=== PATIENT | female | born 1995 | race Caucasian/White ===

== ENCOUNTER → 2018-06-08 08:57 | Outpatient (CLI) | payer OTHER, SELFPAY | PROVIDERS: Family Provider Family Medicine; PCP Family Medicine; Visit Provider Family Medicine | DX: Z11.1 Encounter for screening for respiratory tuberculosis (principal) | CPT/HCPCS: 36415; 86480 ==

== ENCOUNTER → 2018-06-10 10:29 | Outpatient (CLI) | payer OTHER, SELFPAY ==
[2018-06-15 03:07] LABS: QNTFERON TB Ag Minus Nil Value 0.05 IU/mL (.); QNTFERON TB Ag Value 0.12 IU/mL (.); QNTFERON TB Mitogen Value > 10.00 IU/mL (.); QNTFERON TB Nil Value 0.07 IU/mL (.)
[2018-06-15 09:23] LABS: QNTIFERON TB Gold Negative (Negative)
== END ==
PROVIDERS: Family Provider Family Medicine; PCP Family Medicine; Visit Provider Family Medicine
DX: Z11.1 Encounter for screening for respiratory tuberculosis (principal)
CPT/HCPCS: 86480

== ENCOUNTER 2018-11-02 14:19 | Emergency (ER) | payer OTHER, SELFPAY ==
[2018-11-02 14:20] VITALS: BP 139/83; PULSE 89; RESP 16; TEMP 36.6; O2SAT 96; BMI 35.9
--- NOTE | 2018-11-02 14:43 | EKG12_ITS ---
Test Reason : NUMBNESS Blood Pressure : / mmHG Vent. Rate : 065 BPM Atrial Rate : 065 BPM P-R Int : 112 ms QRS Dur : 098 ms QT Int : 420 ms P-R-T Axes : 012 003 011 degrees QTc Int : 436 ms Normal sinus rhythm with sinus arrhythmia Normal ECG Confirmed by TISHA HINTON, BYRON ([id number]), production editor ALTAF BURNETTE ([id number]) on 11/06/2018 3:21:44 PM Referred By: RU Confirmed By:BYRON GILES MD
--- NOTE | 2018-11-02 14:43 | RAD_ITS ---
STUDY: X-RAY CHEST REASON FOR EXAM: Female, 23 years old. Numbness and tingling of the left face and left arm since migraines one week ago TECHNIQUE: PA and lateral views of the chest. COMPARISON: None. FINDINGS: The lungs are clear and expanded. There is no demonstrated pleural abnormality. Normal size heart. Normal mediastinum and rodrick. Normal visualized pulmonary arteries. Normal visualized aortic arch and descending thoracic aorta. Normal visualized thoracic spine. Normal visualized ribs, clavicles, and shoulders. There is no demonstrated abnormality of the visualized soft tissue structures of the upper abdomen. RAD/Chest PA and Lateral IMPRESSION: Normal x-ray examination of the chest. Electronically Signed: Shivam Corrigan MD at 15:46 EST , Service support ,
--- NOTE | 2018-11-02 14:45 | NURSING ---
NO OLD EKGS
--- NOTE | 2018-11-02 15:00 | CT_ITS ---
STUDY: CT BRAIN WITHOUT CONTRAST REASON FOR EXAM: Female, 23 years old. Headache RADIATION DOSAGE (If Supplied By Facility): CTDIvol = ( 44.99 ) mGy, DLP = ( 745.49 ) mGycm TECHNIQUE: Transaxial CT imaging of the brain was performed without administration of intravenous contrast material. Individualized dose optimization techniques were used for this CT. COMPARISON: None. FINDINGS: Normal soft tissue structures. Normal calvarium. Normal size ventricles and extra-axial spaces for the patient's age. Normal white matter tracts of the cerebral hemispheres. Normal basal ganglia and thalami. Normal brainstem. Normal cerebellum. There is no intracranial hemorrhage. There are no findings of an acute ischemic infarction. Normal visualized paranasal sinuses. CT/Brain/Head without Contrast IMPRESSION: Normal unenhanced CT scan of the brain. Electronically Signed: Shivam Corrigan MD at 15:56 EST , Service support ,
[2018-11-02 15:07] LABS: Absolute Lymphocyte Count 2.21 X10^3/ul (0.83-4.51); Absolute Neutrophil Count 3.7 X10^3/uL (2.0-7.7); Basophil# 0.02 X10^3/uL; Basophil% 0.3 % (0-1); Eosinophil# 0.09 X10^3/uL; Eosinophils% 1.4 % (0-5); Hematocrit 42.3 % (37-47); Hemoglobin 14.3 g/dl (12.0-15.0); Lymphocyte # 2.21 X10^3/ul (4.0); Lymphocyte % 33.5 % (19-41); Mean Corp Hgb Conc 33.8 g/gl (32-36); Mean Corpuscular Hgb 29.7 pg (27.0-32.0); Mean Corpuscular Volume 87.8 fL (81-99); Mean Platelet Vol. 9.6 fl (6.2-12.0); Monocyte# 0.62 X10^3/uL; Monocyte% 9.4 % (0-10); Neutrophil # 3.66 X10^3/uL (2.7-7.7); Neutrophil % 55.4 % (47-70); Platelet Count 226 K/mm3 (150-450); RBC Distribution Width CV 12.2 % (11.6-14.6); RBC Distribution Width SD 39.4 fl (35.1-43.9); Red Blood Count 4.82 M/mm3 (4.2-5.4); White Blood Count 6.6 K/mm3 (4.4-11.0)
[2018-11-02 15:10] LABS: POSITIVE COUNT NO; POSITIVE DIFFERENTIAL NO; POSITIVE MORPHOLOGY NO; Prothrombin Time (Protime)PT. 12.7 SECONDS (11.7-14.9)
[2018-11-02 15:11] LABS: Partial Thromboplast Time 26.2 Seconds (24.1-36.2)
[2018-11-02 15:19] LABS: Anion Gap 6 (5-15); BUN 12 mg/dL (7-18); BUN/Creat Ratio 13.6 RATIO (10-20); Calcium,Total 8.8 mg/dL (8.5-10.1); Chloride 108 mmol/L (98-107); Creatinine, Serum 0.88 mg/dL (0.55-1.02); EST Glomerular Filtration Rate 85 mL/min (>60); Est Glom Filt Rate - Afr Amer 103 mL/min (>60); Estimated Creatinine Clearance 86.59 ml/min; Glucose 73 mg/dL (74-106); Potassium 3.7 mmol/L (3.5-5.1); Sodium Level 141 mmol/L (136-145)
[2018-11-02] MEDS: DiphenhydrAMINE 50 MG/ML Syringe 25 MG IV (15:20)
[2018-11-02] MEDS: proCHLORPERazine 10 MG/2 ML Vial IV (15:22)
[2018-11-02] MEDS: 0.9% Normal Saline 1,000 ML 50 ML IV (15:24)
--- NOTE | 2018-11-02 16:04 | ED.VISSUMM ---
- ER Visit Summary Date of Service: 11/02/18 Chief Complaint: Numbness and tingling History of Present Illness: The patient is a 23 F with numbness and tingling in her left face and left arm that started about 1 hour prior to arrival while she was at a basketball game. Throughout the day today, she has had a weird sensation in her head. She describes it as a floating sensation. She has a history of migraines and had one last weekend. She is not really having headache or head pain today. She says her numbness has improved but she continues to have paresthesias at this point. She also noted some dots in her vision bilaterally. Those went away. Denies any head injuries. Denies any fever or recent illness. Denies any change in her medications. No other new or different symptoms. She was previously diagnosed with migraines and takes propranolol. No other significant medical history. Physical Examination: Afebrile and vital signs unremarkable. Alert and oriented. No acute distress. Head and neck are normal to inspection. HEENT exam unremarkable. Cranial nerves grossly intact. Heart regular. No respiratory distress. Skin appears normal. Moves all extremities. No focal or lateralizing neurologic abnormalities. Good coordination. NIH stroke scale is 0. Test Results: EKG and labs unremarkable. CT brain unremarkable. Emergency Department Course and Treatment: Patient treated with Compazine, Benadryl, and fluids. I suspect her symptoms are all migraine related. Her workup is unremarkable. This does not seem consistent with stroke, seizure, tumor, bleed, or any other emergent intracranial process. Patient is doing well. Symptoms have resolved. She will be discharged to follow-up with her family doctor. Stay hydrated and rested. Return for any new or worsening issues. Treatment Plan: As above Disposition: Discharge Impression: 1. Paresthesias This note was generated with [employer] dictation software. It may contain incorrect words, spelling, and punctuation that were not noted in review of the chart prior to signing ED Disposition - Plan for ED Patient: Chief Complaint: Numb/Ting Referrals: Doni Salinas MD [Primary Care Provider] -
--- NOTE | 2018-11-02 16:07 | ED.DEP ---
ED Disposition - Plan for ED Patient: Chief Complaint: Numb/Ting Instructions: ED Paraesthesias Referrals: Doni Salinas MD [Primary Care Provider] -
[2018-11-02 16:23] VITALS: BP 121/78; PULSE 78; RESP 16; O2SAT 97
--- OUTSIDE RECORDS SUMMARY | 2019-02-05 12:06 | XMS RPT_ITS ---
:1995 Author Organization [facility] Care Team Providers Name Role Phone Doni Burnette Primary Care Unavailable Tahir Mata Attending Unavailable Barrington Nieves Attending Unavailable Barrington Nieves Referring Unavailable Doni Burnette Primary Care Unavailable Barrington Nieves Attending Unavailable Doni Burnette Primary Care Unavailable Brarington Nieves Referring Unavailable PROBLEMS PROBLEMS No Problem Records FoundPROCEDURES PROCEDURES No Procedure Records FoundRESULTS RESULTS 12 LEAD ELECTROCARDIOGRAM Observed: 11/06/2018 Status: F Source: [place] 3:22 PM [facility] REPOSITORY [facility] Cardiovascular Services [address] [place] [address] 12 Lead EKG 11/02/18 1450 MR#: [id number] Acct: [id number] Name: CAIN SEYMOUR Rep #: [id number] : 1995 23 From: Ken Gutierrez MD Attending Dr: Status: DEP ER Ordering Dr: Provider,Jae P. Date: 11/02/18 Location: ED Sex: F C Admitted: Test Reason : NUMBNESS Blood Pressure : / mmHG Vent. Rate : 065 BPM Atrial Rate : 065 BPM P-R Int : 112 ms QRS Dur : 098 ms QT Int : 420 ms P-R-T Axes : 012 003 011 degrees QTc Int : 436 ms Normal sinus rhythm with sinus arrhythmia Normal ECG Confirmed by TISHA HINTON, KEN ([id number]), news video editor ALTAF BURNETTE ([id number]) on 11/06/2018 3:21:44 PM Referred By: RU Confirmed By:KEN GUTIERREZ MD 11/06/18 1521 Date Ken Gutierrez MD CC: Tahir Mata MD; ED PHYSICIAN PROVIDER; Doni Burnette MD Signed EMERGENCY DEPARTMENT Observed: 11/02/2018 Status: F Source: [place] SUMMARY 4:56 PM [facility] REPOSITORY [facility] Medical Records Department [address] [place] [address] Emergency Department Summary 11/02/18 1604 MR#: [id number] Acct: [id number] Name: CAIN SEYMOUR Rep #: [id number] : 1995 23 From: Tahir Mata MD PCP: Doni Burnette MD Status: PRE ER - ER Visit Summary Date of Service: 11/02/18 Chief Complaint: Numbness and tingling History of Present Illness: The patient is a 23 F with numbness and tingling in her left face and left arm that started about 1 hour prior to arrival while she was at a basketball game. Throughout the day today, she has had a weird sensation in her head. She describes it as a floating sensation. She has a history of migraines and had one last weekend. She is not really having headache or head pain today. She says her numbness has improved but she continues to have paresthesias at this point. She also noted some dots in her vision bilaterally. Those went away. Denies any head injuries. Denies any fever or recent illness. Denies any change in her medications. No other new or different symptoms. She was previously diagnosed with migraines and takes propranolol. No other significant medical history. Physical Examination: Afebrile and vital signs unremarkable. Alert and oriented. No acute distress. Head and neck are normal to inspection. HEENT exam unremarkable. Cranial nerves grossly intact. Heart regular. No respiratory distress. Skin appears normal. Moves all extremities. No focal or lateralizing neurologic abnormalities. Good coordination. NIH stroke scale is 0. Test Results: EKG and labs unremarkable. CT brain unremarkable. Emergency Department Course and Treatment: Patient treated with Compazine, Benadryl, and fluids. I suspect her symptoms are all migraine related. Her workup is unremarkable. This does not seem consistent with stroke, seizure, tumor, bleed, or any other emergent intracranial process. Patient is doing well. Symptoms have resolved. She will be discharged to follow-up with her family doctor. Stay hydrated and rested. Return for any new or worsening issues. Treatment Plan: As above Disposition: Discharge Impression: 1. Paresthesias This note was generated with [employer] dictation software. It may contain incorrect words, spelling, and punctuation that were not noted in review of the chart prior to signing ED Disposition - Plan for ED Patient: Chief Complaint: Numb/Ting Referrals: Doni Burnette MD [Primary Care Provider] - What to do if you have Problems For any increased pain, shortness of breath, bleeding, nausea or vomiting, chest pain, or any unexpected problems, contact your Primary Care Provider. Call [facility] ([phone]) or report to the closest Emergency Room. Call 911 if necessary. 11/02/18 1656 <Electronically signed by Tahir Mata MD> Date Tahir Mata MD Cosigner Signature (If Indicated): Date CC: Doni Burnette MD DISCHARGE INSTRUCTION Observed: 11/02/2018 Status: F Source: [place] 4:56 PM [facility] REPOSITORY [facility] Medical Records Department [address] [place] [address] Discharge Instruction 11/02/18 1607 MR#: [id number] Acct: [id number] Name: CAIN SEYMOUR Rep #: [id number] : 1995 23 From: Tahir Mata MD PCP: Doni Burnette MD Status: PRE ER ED Disposition - Plan for ED Patient: Chief Complaint: Numb/Ting Instructions: ED Paraesthesias Referrals: Doni Burnette MD [Primary Care Provider] - What to do if you have Problems For any increased pain, shortness of breath, bleeding, nausea or vomiting, chest pain, or any unexpected problems, contact your Primary Care Provider. Call [facility] ([phone]) or report to the closest Emergency Room. Call 911 if necessary. 11/02/18 6717 <Electronically signed by Tahir Mata MD> Date Tahir Mata MD Cosigner Signature (If Indicated): Date CC: Doni Burnette MD BRAIN/HEAD WITHOUT Observed: 11/02/2018 Status: F Source: [place] CONTRAST 3:00 PM [facility] REPOSITORY [facility] Imaging Services [address] [place] [address] Brain/Head without Contrast MR#: [id number] Acct: [id number] Name: CAIN SEYMOUR Rep #: [id number] : 1995 F 23 From: Shivam Corrigan MD PCP: Doni Burnette MD Status: PRE ER Study: Brain/Head without Contrast Date of Exam: 11/02/18 Exam# [id number] Ordering Dr: Tahir Mata MD STUDY: CT BRAIN WITHOUT CONTRAST REASON FOR EXAM: Female, 23 years old. Headache RADIATION DOSAGE (If Supplied By Facility): CTDIvol = ( 44.99 ) mGy, DLP = ( 745.49 ) mGycm TECHNIQUE: Transaxial CT imaging of the brain was performed without administration of intravenous contrast material. Individualized dose optimization techniques were used for this CT. COMPARISON: None. FINDINGS: Normal soft tissue structures. Normal calvarium. Normal size ventricles and extra-axial spaces for the patient's age. Normal white matter tracts of the cerebral hemispheres. Normal basal ganglia and thalami. Normal brainstem. Normal cerebellum. There is no intracranial hemorrhage. There are no findings of an acute ischemic infarction. Normal visualized paranasal sinuses. CT/Brain/Head without Contrast IMPRESSION: Normal unenhanced CT scan of the brain. Electronically Signed: Shivam Corrigan MD at 15:56 EST , Service support , CC: Tahir Mata MD; Doni Burnette MD Social Services Aide: Signed CBC W/DIFF, AUTOMATED Collected: 11/02/2018 Status: F Source: [place] 2:57 PM [facility] REPOSITORY TYPE CODE TESTS RESULT OUT OF RANGE REFERENCE UNITS LAB L100.1000 4.4-11.0 K/mm3 Normal WBC 6.6 LAB L100.1200 4.2-5.4 M/mm3 Normal RBC 4.82 LAB L100.1300 12.0-15.0 g/dl Normal HGB 14.3 LAB L100.1400 37-47 % Normal HCT 42.3 LAB L100.1500 81-99 fL Normal MCV 87.8 LAB L100.1600 27.0-32.0 pg Normal MCH 29.7 LAB L100.1700 32-36 g/gl Normal MCHC 33.8 LAB L100.1810 11.6-14.6 % Normal RDW CV 12.2 LAB L100.1820 35.1-43.9 fl Normal RDW SD 39.4 LAB L100.1900 150-450 K/mm3 Normal PLT 226 LAB L100.2000 6.2-12.0 fl Normal MPV 9.6 LAB L100.2100 47-70 % Normal NEUT% 55.4 LAB L100.2200 19-41 % Normal LY% 33.5 LAB L100.2300 0-10 % Normal MONO% 9.4 LAB L100.2400 0-5 % Normal EO% 1.4 LAB L100.2500 0-1 % Normal BASO% 0.3 LAB L100.2550 0.0-0.9 % Normal IM GRAN % 0.000 Result Comment: IG% - Immature Granulocytes (promyelocytes, myelocytes and metamyelocytes) > 1% indicates that a LEFT SHIFT is Present. LAB L100.2620 2.0-7.7 X10 3/uL Normal Absolute Neut 3.7 LAB L100.2720 0.83-4.51 X10 3/ul Normal Absolute Lymph 2.21 Performed By: #### L100.0100 #### [facility] [address] [place], [address] PROTHROMBIN TIME W/INR Collected: 11/02/2018 Status: F Source: [place] 2:57 PM [facility] REPOSITORY TYPE CODE TESTS RESULT OUT OF RANGE REFERENCE UNITS LAB L300.4150 11.7-14.9 SECONDS Normal PROTIME 12.7 LAB L300.4200 Normal INR 1.0 Performed By: #### L300.3900, L300.4310 #### [facility] [address] [place], [address] PARTIAL THROMBOPLAST Collected: 11/02/2018 Status: F Source: [place] TIME 2:57 PM [facility] REPOSITORY TYPE CODE TESTS RESULT OUT OF RANGE REFERENCE UNITS LAB L300.4310 24.1-36.2 Seconds Normal PTT 26.2 Performed By: #### L300.3900, L300.4310 #### [facility] [address] [place], [address] BASIC METABOLIC Collected: 11/02/2018 Status: F Source: [place] PROFILE (BMP) 2:57 PM [facility] REPOSITORY TYPE CODE TESTS RESULT OUT OF RANGE REFERENCE UNITS LAB L501.0100 74-106 mg/dL Low GLU 73 Result Comment: Please note revised GLUCOSE reference range effective 2017. LAB L501.1000 7-18 mg/dL Normal BUN 12 LAB L501.1100 0.55-1.02 mg/dL Normal CREAT,SERUM 0.88 Result Comment: The validity of the calculated GFR AND GFRAA in patients over 70 years has not been determined. Clinical correlation is essential. LAB L501.1110 >60 mL/min Normal EST GFR 85 Result Comment: Non- GFR Calc LAB L501.1115 >60 mL/min Normal EST GFR - AA 103 Result Comment: GFR Calc LAB L501.1255 ml/min Normal Estimated CRCL 86.59 LAB L501.1300 10-20 RATIO Normal BUN/CRE 13.6 LAB L501.2200 8.5-10 mg/dL Normal .1 CA 8.8 LAB L501.5300 136-14 mmol/L Normal 5 NA 141 LAB L501.5600 3.5-5. mmol/L Normal 1 K 3.7 LAB L501.5900 98-107 mmol/L High CL 108 LAB L501.6100 21.0-3 mmol/L Normal 2.0 CO2 27.0 LAB L501.6200 5-15 Normal GAP 6 Performed By: #### L500.2500 #### [facility] [address] [facility] [place], [address] CHEST PA AND LATERAL Observed: 11/02/2018 Status: F Source: [place] 2:44 PM [facility] REPOSITORY [facility] Imaging Services [address] [place] [address] Chest PA and Lateral MR#: [id number] Acct: [id number] Name: CAIN SEYMOUR Rep #: [id number] : 1995 F 23 From: Shivam Corrigan MD PCP: Doni Burnette MD Status: PRE ER Study: Chest PA and Lateral Date of Exam: 11/02/18 Exam# [id number] Ordering Dr: Tahir Mata MD STUDY: X-RAY CHEST REASON FOR EXAM: Female, 23 years old. Numbness and tingling of the left face and left arm since migraines one week ago TECHNIQUE: PA and lateral views of the chest. COMPARISON: None. FINDINGS: The lungs are clear and expanded. There is no demonstrated pleural abnormality. Normal size heart. Normal mediastinum and rodrick. Normal visualized pulmonary arteries. Normal visualized aortic arch and descending thoracic aorta. Normal visualized thoracic spine. Normal visualized ribs, clavicles, and shoulders. There is no demonstrated abnormality of the visualized soft tissue structures of the upper abdomen. RAD/Chest PA and Lateral IMPRESSION: Normal x-ray examination of the chest. Electronically Signed: Shivam Corrigan MD at 15:46 EST , Service support , CC: Tahir Mata MD; Doni Burnette MD Social Services Aide: Signed QUANTIFERON TB-GOLD Collected: 06/10/2018 Status: F Source: [place] 10:34 AM [facility] REPOSITORY TYPE CODE TESTS RESULT OUT OF RANGE REFERENCE UNITS LAB L3400.7025 Negative Normal QFT Negative TB GOLD Result Comment: The specimen received for QuantiFERON testing was incubated by the ordering institution. Specific procedures outlined in our Directory of Services and in the package insert for the QuantiFERON Gold (In Tube) test must be followed to enable for proper stimulation of cells for the production of interferon gamma. LAB L3400.7035 . Normal QFT TB Comment POS CRIT Result Comment: To be considered positive a specimen should have a TB Ag minus Nil value greater than or equal to 0.35 IU/mL and in addition the TB Ag minus Nil value must be greater than or equal to 25% of the Nil value. There may be insufficient information in these values to differentiate between some negative and some indeterminate test values. LAB L3400.7045 . IU/mL Normal QFT TB AB 0.12 VALUE LAB L3400.7055 . IU/mL Normal QFT NIL VALUE 0.07 LAB L3400.7065 . IU/mL > Normal QFT MITOGEN 10.00 SIMBA LAB L3400.7075 . IU/mL Normal QFT AG - NIL 0.05 LAB L3400.7085 . Normal QFT TB INTER Comment Result Comment: The QuantiFERON TB Gold (in Tube) assay is intended for use as an aid in the diagnosis of TB infection. Negative results suggest that there is no TB infection. In patients with high suspicion of exposure, a negative test should be repeated. A positive test indicates infection with Mycobacterium tuberculosis. Among individuals without tuberculosis infection, a positive test may be due to exposure to M. kansasii, M. szulgai or M. marinum. On the Internet, go to cdc.gov/tb for further details. Performed at: [address] [id number] Physiological Chemist: Jorge Luis Brink PhD, Phone: [phone] Performed By: #### L3400.7000 #### [facility] (refer to report for specific site) refer to report for address and phone number QUANTIFERON TB-GOLD Collected: 06/08/2018 Status: F Source: [place] 9:03 AM [facility] REPOSITORY TYPE CODE TESTS RESULT OUT OF RANGE REFERENCE UNITS LAB L3400.7025 Normal QFT TB GOLD Result Comment: TEST RESULT LIMITS QuantiFERON Client Incubated QuantiFERON TB Gold Negative Negative The specimen received for QuantiFERON testing was incubated by the ordering institution. Specific procedures outlined in our Directory of Services and in the package insert for the QuantiFERON Gold (In Tube) test must be followed to enable for proper stimulation of cells for the production of interferon gamma. QuantiFERON Criteria To be considered positive a specimen should have a TB Ag minus Nil value greater than or equal to 0.35 IU/mL and in addition the TB Ag minus Nil value must be greater than or equal to 25% of the Nil value. There may be insufficient information in these values to differentiate between some negative and some indeterminate test values. QuantiFERON TB Ag Value 0.12 IU/mL QuantiFERON Nil Value 0.07 IU/mL QuantiFERON Mitogen Value >10.00 IU/mL QFT TB Ag minus Nil Value 0.05 IU/mL Interpretation: The QuantiFERON TB Gold (in Tube) assay is intended for use as an aid in the diagnosis of TB infection. Negative results suggest that there is no TB infection. In patients with high suspicion of exposure, a negative test should be repeated. A positive test indicates infection with Mycobacterium tuberculosis. Among individuals without tuberculosis infection, a positive test may be due to exposure to M. kansasii, M. szulgai or M. marinum. On the Internet, go to cdc.gov/tb for further details. TESTING PERFORMED AT [facility]. ORIGINAL REPORT ON FILE IN LAB CONTAINS ADDITIONAL TEST SITE INFORMATION. Performed By: #### L3400.7000 #### [facility] (refer to report for specific site) refer to report for address and phone number ALLERGIES ALLERGIES DATE TYPE / CODE NAME / CODE REACTION SEVERITY SOURCE 11/02/2018 Drug No Known Unknown [place] [facility] Allergy/4160 Allergies/F00 Hospital [address](SNOMED 6041987(RXNOR Repository CT) M) ENCOUNTERS ENCOUNTERS ADMIT/DISCHARGE ACCOUNT ADMITTING ENCOUNTER LOCATION SOURCE NUMBER CLASS 11/02/2018/ [id number] Emergency [place] [facility] ing:ED Repository 06/10/2018 [id number] Ambulatory [place] [facility] ing:LAB.FUTUR Repository E 06/08/2018 [id number] Ambulatory [place] [facility] ing:LAB Repository PAYERS PAYERS ENCOUNTER GUARANTOR PAYER SUBSCRIBER SOURCE 11/02/2018 CAIN Salgado Primary ANYA Vyas [place] [id number] APPLE Insurance:CIGNAPolicy SERDOB: [facility]ly [facility] DRAPPLE [place]: [id number] [id number] Repository [address]Jff: (330) Date:[phone] () [place], [place] [address]TQ: 11/02/2018 Secondary NOT GIVENUNK [place] Insurance:SELF PAY [facility] Number: Effective Repository Date:2018-11-02 06/10/2018 CAIN Salgado Primary Anay Asael [place] [id number] APPLE Insurance:CIGNAPolicy serB: [facility] DRAPPLE Number: [id number], [place] [id number] Repository [address]Pzh: (330) Date:[phone] () [id number], [place] [address]WS: 06/10/2018 Secondary NOT GIVENUNK [place] Insurance:SELF PAY [facility] Number: Effective Repository Date:2018-06-10 06/08/2018 CAIN SAVAGE [facility] Anay Ontiveros [id number] APPLE Insurance:CIGNAStevie HutsonserDOB: Formerly [facility] DRAPPLE Number: [id number], [place] [id number] Repository [address]Iji: (330) Date:[id number] [phone] () [id number], [place] [address]BC: 06/08/2018 Secondary NOT GIVENUNK [place] Insurance:SELF PAY [facility] Number: Effective Repository Date:2018-06-08
== END 2018-11-02 16:23 | disposition home or self-care (01) ==
LOC: ED 17:24
PROVIDERS: Emergency Provider Emergency Medicine; Family Provider Family Medicine; PCP Family Medicine
DX: R20.2 Paresthesia of skin (principal); G43.909 Migraine, unspecified, not intractable, without status migrainosus
CPT/HCPCS: 70450; 71046; 80048; 85025; 85610; 85730; 93005; 96361; 96374; 96375; 99284; J7030; J7040; A4216

== ENCOUNTER → 2019-05-02 15:48 | Outpatient (CLI) | payer OTHER, SELFPAY ==
[2019-05-02 18:07] LABS: T4 Total, Thyroxin 10.7 ug/dL (4.8-13.9); Thyroid Stim Hormone (TSH) 1.36 uIU/mL (0.358-3.74)
== END ==
PROVIDERS: Family Provider Family Medicine; PCP Family Medicine; Referring Provider Family Medicine; Visit Provider Family Medicine
DX: E66.9 Obesity, unspecified (principal)
CPT/HCPCS: 36415; 84436; 84443

== ENCOUNTER → 2019-07-01 13:32 | Outpatient (CLI) | payer OTHER, SELFPAY ==
[2019-07-03 20:07] LABS: QNTFERON TB Mitogen Value > 10.00 IU/mL (.); QNTFERON TB Nil Value 0.02 IU/mL (.); QNTFERON TB1+ Ag Value 0.03 IU/mL (.); QNTFERON TB2+ Ag Value 0.03 IU/mL (.)
[2019-07-04 12:28] LABS: QNTIFERON TB Positive Criteria Negative (Negative)
== END ==
PROVIDERS: Family Provider Family Medicine; PCP Family Medicine; Referring Provider Family Medicine; Visit Provider Family Medicine
DX: Z11.1 Encounter for screening for respiratory tuberculosis (principal)
CPT/HCPCS: 36415; 86480

== ENCOUNTER → 2020-06-29 13:24 | Outpatient (CLI) | payer OTHER, SELFPAY ==
[2020-07-02 03:06] LABS: QNTFERON TB Mitogen Value > 10.00 IU/mL (.); QNTFERON TB Nil Value 0.01 IU/mL (.); QNTFERON TB1+ Ag Value 0.02 IU/mL (.); QNTFERON TB2+ Ag Value 0.02 IU/mL (.)
[2020-07-02 04:42] LABS: QNTIFERON TB Positive Criteria Negative (Negative)
== END ==
PROVIDERS: PCP Family Medicine; Referring Provider Family Medicine; Visit Provider Family Medicine
DX: Z11.1 Encounter for screening for respiratory tuberculosis (principal)
CPT/HCPCS: 36415; 86480

== ENCOUNTER → 2020-11-15 16:43 | Outpatient (CLI) | payer OTHER, SELFPAY ==
[2020-11-15 13:14] VITALS: BMI 36.0
[2020-11-18 03:06] LABS: Chlamydia By Nucleic Acid AMP Negative (Negative)
[2020-11-18 12:32] LABS: Gonococcus By Nucleic Acid AMP Negative (Negative)
== END ==
PROVIDERS: PCP Family Medicine; Visit Provider Obstetrics & Gynecology
DX: Z11.3 Encounter for screening for infections with a predominantly sexual mode of transmission (principal)
CPT/HCPCS: 87491; 87591

== ENCOUNTER → 2021-03-28 09:43 | Outpatient (CLI) | payer OTHER, SELFPAY ==
[2020-11-17 08:15] VITALS: BMI 36.0
== END ==
PROVIDERS: PCP Family Medicine; Referring Provider Family Medicine; Visit Provider Family Medicine
DX: Z92.89 Personal history of other medical treatment (principal)
CPT/HCPCS: 36415; 86480

== ENCOUNTER → 2024-01-22 | Outpatient (CLI) | payer BC, SELFPAY ==
[2024-01-22 17:22] LABS: Vitamin D,25 Hydroxy 21.7 ng/mL
[2024-01-22 17:30] LABS: T4 Free Direct 0.85 ng/dL (0.76-1.46); Thyroid Stim Hormone (TSH) 1.61 uIU/mL (0.358-3.74)
[2024-01-24 04:07] LABS: Thyroid Peroxidase AB 18 IU/mL (0-34)
[2024-01-25 08:12] LABS: Chlamydia By Nucleic Acid AMP Negative (Negative); Gonococcus By Nucleic Acid AMP Negative (Negative)
[2024-01-30 12:42] LABS: HPV Reflexed? NOT INDICATED
== END | disposition home or self-care (01) ==
PROVIDERS: PCP Internal Medicine; Referring Provider Nurse Practitioner Women's Health; Visit Provider Nurse Practitioner Women's Health
DX: Z12.4 Encounter for screening for malignant neoplasm of cervix (principal); Z11.3 Encounter for screening for infections with a predominantly sexual mode of transmission
CPT/HCPCS: 36415; 82306; 84439; 84443; 86376; 87491; 87591; 88175; G0145

== ENCOUNTER → 2024-02-05 | Outpatient (CLI) | payer BC, SELFPAY ==
[2024-02-05 08:14] LABS: Absolute Lymphocyte Count 1.91 X10^3/uL (0.83-4.51); Absolute Neutrophil Count 3.2 X10^3/uL (2.0-7.7); Basophil# 0.03 X10^3/uL; Basophil% 0.5 % (0-1); Eosinophil# 0.05 X10^3/uL; Eosinophils% 0.9 % (0-5); Hematocrit 43.8 % (37-47); Hemoglobin 15.1 g/dL (12.0-15.0); Lymphocyte # 1.91 X10^3/ul (0.83-4.51); Mean Corp Hgb Conc 34.5 g/dL (32-36); Mean Corpuscular Hgb 30.9 pg (27.0-32.0); Mean Corpuscular Volume 89.6 fL (81-99); Mean Platelet Vol. 9.8 fl (6.2-12.0); Monocyte# 0.43 X10^3/uL; Monocyte% 7.7 % (0-10); NRBC Flagged by Analyzer 0 % (0-5); Neutrophil # 3.19 X10^3/uL (2.7-7.7); Neutrophil % 56.7 % (47-70); Platelet Count 206 K/mm3 (150-450); RBC Distribution Width CV 11.9 % (11.6-14.6); RBC Distribution Width SD 38.7 fl (35.1-43.9); Red Blood Count 4.89 M/mm3 (4.2-5.4); White Blood Count 5.6 K/mm3 (4.4-11.0)
[2024-02-05 08:32] LABS: ALB/GLOB Ratio 1.1 RATIO (0.9-2.4); AST(SGOT) 15 U/L (15-37); Alanine Aminotransfer ALT/SGPT 15 U/L (13-56); Albumin, Serum 3.7 g/dL (3.2-5.0); Alkaline Phosphatase 73 U/L (45-117); Anion Gap 4 (5-15); BUN 11 mg/dL (7-18); Calcium,Total 8.9 mg/dL (8.5-10.1); Chloride 110 mmol/L (98-107); Cholesterol 161 mg/dL (200); Creatinine, Serum 0.79 mg/dL (0.55-1.02); EST Glomerular Filtration Rate 93 mL/min (>60); Est Glom Filt Rate - Afr Amer 112 mL/min (>60); Globulin 3.3 g/dL (2.2-4.2); Glucose 92 mg/dL (74-106); High Density Lipoprotein 59 mg/dL; Potassium 3.8 mmol/L (3.5-5.1); Sodium Level 140 mmol/L (136-145); Triglycerides 89 mg/dL; Very Low Density Lipoprotein 18 mg/dL (5-40)
== END | disposition home or self-care (01) ==
LOC: LAB 07:46
PROVIDERS: PCP Internal Medicine; Referring Provider Internal Medicine; Visit Provider Internal Medicine
DX: E66.9 Obesity, unspecified (principal); F41.8 Other specified anxiety disorders
CPT/HCPCS: 36415; 80053; 80061; 85025

== ENCOUNTER → 2024-03-03 | Outpatient (CLI) | payer BC, SELFPAY ==
--- NOTE | 2024-03-03 15:35 | CER_PTH ---
PATIENT: CAIN SEYMOUR [facility] U#:[id number] AGE/SX: 28/F ROOM: RE03/03/[address]: Dr. Keren Alcaraz DO : 1995 BED: DIS: 03/03/2024 SPEC #: [id number] RECD: 03/03/24 15:38 STATUS: RUDDY GABE #: [id number] HECTOR: 03/03/24 15:[address]: Keren Alcaraz DEPT: SURGICAL PATHOLOGY RECD BY: Clara Arriola ENTERED: 03/04/24 09:35 SP TYPE: CERV OTHR DR: Dr. Meli Mims MD Tissues: A - Uterine cervix, NOS B - Endocervical Procedures: Surgery Specimen Level IV HEADER OPERATION: Colposcopy PRE-OP DIAGNOSIS: LGSIL TISSUE SUBMITTED: A- 12 o'clock on cervix, B- Endocervical Curettings MICROSCOPIC DIAGNOSIS A. Cervix, 12 o'clock, biopsy: Negative for dysplasia. See comment. B. Endocervical Curettings: A few desquamated benign endocervical epithelial cells, negative for dysplasia. See comment. / 03/05/2024 COMMENT A. Specimen entirely consists of ectocervical mucosa. Clinical correlation and appropriate follow up are necessary. MICROSCOPIC DESCRIPTION Slides are reviewed. GROSS DESCRIPTION A. Received in fixative is one container labeled with the patient's name and designated 12 o'clock cervix. The specimen consists of one irregular fragment of light lucas soft tissue that measures 0.4 x 0.3 x 0.1 cm. The specimen is totally submitted in one cassette. B. Received in fixative is a metallic brush with adherent minute fragments of lucas-red tissue and labeled with the patient's name and and designated per the requisition as ECC BRUSH. The material is attached lucas mucoid tissue. The specimen is dislodged from the brush and submitted entirely for cell block preparation. / 03/04/24 TC:5 CPT: 60092w1
== END | disposition home or self-care (01) ==
PROVIDERS: PCP Internal Medicine; Referring Provider Obstetrics & Gynecology; Visit Provider Obstetrics & Gynecology
DX: R87.612 Low grade squamous intraepithelial lesion on cytologic smear of cervix (LGSIL) (principal)
CPT/HCPCS: 88305

== ENCOUNTER → 2024-04-22 | Outpatient (CLI) | payer BC, SELFPAY ==
[2024-04-22 10:06] LABS: Vitamin D,25 Hydroxy 33.8 ng/mL
== END | disposition home or self-care (01) ==
LOC: PAVLAB 09:14
PROVIDERS: PCP Internal Medicine; Referring Provider Nurse Practitioner Women's Health; Visit Provider Nurse Practitioner Women's Health
DX: Z13.21 Encounter for screening for nutritional disorder (principal)
CPT/HCPCS: 36415; 82306

== ENCOUNTER → 2024-05-07 | Outpatient (CLI) | payer BC, SELFPAY ==
[2024-05-07 15:42] LABS: Absolute Lymphocyte Count 1.43 X10^3/uL (0.83-4.51); Absolute Neutrophil Count 3.2 X10^3/uL (2.0-7.7); Basophil# 0.03 X10^3/uL; Basophil% 0.6 % (0-1); Eosinophil# 0.03 X10^3/uL; Eosinophils% 0.6 % (0-5); Hematocrit 44.6 % (37-47); Hemoglobin 15.4 g/dL (12.0-15.0); Lymphocyte # 1.43 X10^3/ul (0.83-4.51); Lymphocyte % 28.4 % (19-41); Mean Corp Hgb Conc 34.5 g/dL (32-36); Mean Corpuscular Volume 89.7 fL (81-99); Mean Platelet Vol. 10.2 fl (6.2-12.0); Monocyte# 0.36 X10^3/uL; Monocyte% 7.1 % (0-10); NRBC Flagged by Analyzer 0 % (0-5); Neutrophil # 3.18 X10^3/uL (2.7-7.7); Neutrophil % 63.1 % (47-70); Platelet Count 203 K/mm3 (150-450); RBC Distribution Width CV 11.8 % (11.6-14.6); RBC Distribution Width SD 38.4 fl (35.1-43.9); Red Blood Count 4.97 M/mm3 (4.2-5.4)
[2024-05-07 16:08] LABS: Internal QC Validated? YES +Cl - CLEAR BKGD; Pregnancy, Serum, hCG Quali. NEGATIVE Negative
[2024-05-07 16:40] LABS: ALB/GLOB Ratio 1.2 RATIO (0.9-2.4); AST(SGOT) 24 U/L (15-37); Alanine Aminotransfer ALT/SGPT 22 U/L (13-56); Albumin, Serum 4.1 g/dL (3.2-5.0); Alkaline Phosphatase 73 U/L (45-117); Anion Gap 4 (5-15); BUN 8 mg/dL (7-18); BUN/Creat Ratio 8.6 RATIO (10-20); Calcium,Total 9.4 mg/dL (8.5-10.1); Chloride 105 mmol/L (98-107); Creatinine, Serum 0.93 mg/dL (0.55-1.02); EST Glomerular Filtration Rate 77 mL/min (>60); Est Glom Filt Rate - Afr Amer 93 mL/min (>60); Globulin 3.5 g/dL (2.2-4.2); Glucose 102 mg/dL (74-106); Potassium 3.7 mmol/L (3.5-5.1); Protein, Total 7.6 g/dL (6.4-8.2); Sodium Level 137 mmol/L (136-145)
== END | disposition home or self-care (01) ==
LOC: BIMLAB 12:02
PROVIDERS: PCP Internal Medicine; Visit Provider Internal Medicine
DX: R10.9 Unspecified abdominal pain (principal)
CPT/HCPCS: 36415; 80053; 84703; 85025

== ENCOUNTER → 2024-05-16 | Outpatient (CLI) | payer BC, SELFPAY ==
--- NOTE | 2024-05-16 17:43 | US_ITS ---
STUDY: ULTRASOUND OF THE FEMALE PELVIS - COMPLETE REASON FOR EXAM: Female, 29 years old. RLQ abdominal pain, spotting LMP: 04/19/2024 TECHNIQUE: Transabdominal and Transvaginal TECHNICAL QUALITY: Adequate. COMPARISON: None. FINDINGS: The uterus is anteverted and is in a midline position. The uterus measures 8 x 3.8 x 4 cm. Normal uterine cervix. The endometrium measures 5.9 mm in thickness, and is hyperechoic. There is no demonstrated endometrial mass. There is no demonstrated myometrial mass. I.U.D. - The patient does not have an I.U.D. The right ovary is visualized. The right ovary measures 3.1 x 1.9 x 1.4 cm. There is no right ovarian cyst or ovarian mass. There is no visualized right adnexal mass or complex lesion. There is normal arterial and normal venous vascularity. The left ovary is visualized. The left ovary measures 4.6 x 3.2 x 2.8 cm. There is a complex 3.5 x 1.8 x 1.9 cm cyst. There is normal arterial and normal venous vascularity. There is minimal fluid in the cul-de-sac. The bladder is sonographically normal with estimated capacity of 466 mL US/Pelvic w/ Transvaginal IMPRESSION: No suspicious sonographic findings, complex 3.5 cm left adnexal cyst. ACR White Paper guidelines (Nathan, et. al. Radiology 2010; 256(3):943-954) suggest no follow-up is necessary.. Electronically Signed: Len Souza MD at 22:12 EDT ,
== END | disposition home or self-care (01) ==
PROVIDERS: PCP Internal Medicine; Referring Provider Internal Medicine; Visit Provider Internal Medicine
DX: R10.31 Right lower quadrant pain (principal); N93.9 Abnormal uterine and vaginal bleeding, unspecified
CPT/HCPCS: 76830; 76856

== ENCOUNTER → 2024-05-20 | Outpatient (CLI) | payer BC, SELFPAY ==
--- NOTE | 2024-05-20 06:55 | CT_ITS ---
EXAM: CT ABDOMEN AND PELVIS WITH INTRAVENOUS CONTRAST CLINICAL INDICATION: RLQ abdominal pain TECHNIQUE: Helically acquired images were obtained of the abdomen and pelvis with intravenous contrast. This CT exam was performed using one or more of the following dose reduction techniques: automated exposure control, adjustment of the mA and/or kV according to patient size, and/or use of iterative reconstruction technique. CONTRAST: Oral and amp; IV Readi-CAT and amp; 100mL Isovue-370 COMPARISON: CT Abdomen Pelvis dated 05/08/2012 FINDINGS: LOWER THORAX: Normal. Lung bases are clear. No cardiomegaly. No pericardial effusion. ABDOMEN: LIVER: Normal. Homogeneous. No focal mass. GALLBLADDER AND BILE DUCTS: Interval cholecystectomy. PANCREAS: Normal. No focal cystic or solid mass. SPLEEN: Normal. Normal size without focal cystic or solid mass. ADRENALS: Normal. No nodules. KIDNEYS AND URETERS: Normal. Normal renal size and position. No hydronephrosis. STOMACH AND BOWEL: Normal. No bowel distention. No focal inflammatory change. PELVIS: APPENDIX: Appendix is visualized and normal in appearance. BLADDER: Normal. REPRODUCTIVE: Unremarkable as visualized. No mass. ABDOMEN and PELVIS: INTRAPERITONEAL SPACE: Physiological amount of free fluid noted within the pelvis. No free air. BONES/JOINTS: No suspicious lytic or blastic abnormality. SOFT TISSUES: Normal. No discrete abdominal or pelvic wall hernia. VASCULATURE: Normal. Abdominal aorta is non-dilated. LYMPH NODES: Normal. No enlarged lymph nodes. CT/Abdomen/Pelvis WITH Contrast IMPRESSION: 1. Normal appendix. 2. Interval cholecystectomy. 3. Physiological amount of free fluid within the pelvis likely related to recently ruptured ovarian cyst. Electronically Signed: Alfredo Menendez MD at 10:51 EDT ,
== END | disposition home or self-care (01) ==
PROVIDERS: PCP Internal Medicine; Referring Provider Internal Medicine; Visit Provider Internal Medicine
DX: R10.31 Right lower quadrant pain (principal)
CPT/HCPCS: 74177; Q9967

== ENCOUNTER → 2024-06-09 | Outpatient (CLI) | payer BC, SELFPAY ==
--- NOTE | 2024-06-09 17:54 | US_ITS ---
EXAM: US PELVIS TRANSABDOMINAL AND TRANSVAGINAL, COMPLETE CLINICAL INDICATION: pelvic pain/ovarian cyst TECHNIQUE: Transabdominal and transvaginal pelvic ultrasound was performed with grayscale and color Doppler imaging. Transvaginal imaging was used for better evaluation of the endometrium and adnexa. COMPARISON: Pelvic ultrasound, 05/08/[address] abdomen and pelvis, 05/20/2024. FINDINGS: UTERUS/CERVIX: No significant abnormality. Anteverted. There is no uterine mass. The uterus measures 7.7 x 3.7 x 3.9 cm. The endometrial stripe measures 0.4 cm in thickness. RIGHT OVARY: No significant abnormality. Blood flow is present in the right ovary. The right ovary measures 1.8 x 1.4 x 1.4 cm. LEFT OVARY: There is a 2.8 x 2.2 x 1.5 cm complex mass/cyst in the left ovary which appears similar to the prior sonographic evaluation. Blood flow is present in the left ovary. The left ovary measures 2.8 x 2.5 x 1.8 cm. FREE FLUID: Minimal free fluid in the cul-de-sac. BLADDER: Normal as visualized. Wall is normal thickness for degree of distention. US/Pelvic w/ Transvaginal IMPRESSION: There is a 2.8 x 2.2 x 1.5 cm complex mass/cyst in the left ovary which appears similar to the prior sonographic evaluation. Given persistence, recommend MRI and/or surgical consultation. Electronically Signed: Mayo Cruz DO at 0:05 EDT ,
== END | disposition home or self-care (01) ==
PROVIDERS: PCP Internal Medicine; Referring Provider Nurse Practitioner Women's Health; Visit Provider Nurse Practitioner Women's Health
DX: R10.2 Pelvic and perineal pain (principal); N83.209 Unspecified ovarian cyst, unspecified side
CPT/HCPCS: 76830; 76856

== ENCOUNTER → 2024-10-08 | Outpatient (CLI) | payer BC, SELFPAY | END | disposition home or self-care (01) | LOC: LABSPEC 15:09 | PROVIDERS: PCP Internal Medicine; Referring Provider Otolaryngology Otolaryngology/Facial Plastic Surgery; Visit Provider Otolaryngology Otolaryngology/Facial Plastic Surgery | DX: J02.9 Acute pharyngitis, unspecified (principal) | CPT/HCPCS: 87070 ==

== ENCOUNTER 2025-01-14 18:13 | Emergency (ER) | payer BC, SELFPAY ==
[2025-01-14 18:15] VITALS: BP 134/83; PULSE 65; RESP 18; TEMP 36.8; O2SAT 98; BMI 33.7
[2025-01-14 21:20] VITALS: BMI 33.7
--- NOTE | 2025-01-14 21:49 | EKG12_ITS ---
Test Reason : DYSRHYTHMIA Blood Pressure : */* mmHG Vent. Rate : 60 BPM Atrial Rate : 60 BPM P-R Int : 130 ms QRS Dur : 96 ms QT Int : 422 ms P-R-T Axes : 12 6 17 degrees QTcB Int : 422 ms Normal sinus rhythm Normal ECG Confirmed by Matty Burgess ([id number]), pictures editor SILVA TONG ([id number]) on 01/15/2025 9:33:58 AM Referred By: Confirmed By: Matty Burgess
--- NOTE | 2025-01-14 21:51 | ED.VIS.STROK ---
HPI History of Present Illness Chief Complaint: Neuro S/Sx Informant: patient Onset/Context/Timing Onset: Yesterday and Hours (2 hours. Beginning around 1 PM yesterday. Resolved.) Context: Gradual Onset Timing: Continuous Onset: 1 PM yesterday. Current Severity: Gone Maximum Severity: Moderate Associated Symptoms Associated Symptoms: Positive for Headache; Negative for Nausea, Vomiting or Chest Pain Narrative Narrative: Healthy 29-year-old female no seen past medical history. Said yesterday at work she had tingling in her right hand and then had trouble speaking and trouble writing. 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 She was trying to write a patient's name and could not write it appropriately. Said this lasted approximately 2 hours. She had a headache afterwards and now it is all completely resolved. Never had anything like this before. No history of stroke or mini stroke. No history of clotting disorder nor family history. Denies any recent head trauma. Denies any recent illness. Today is completely symptom-free. Prior similar symptoms: No Recent Illness/Hospitalization: No PFSH PFSH Medical History Depression with anxiety Home Medications ?Medication ?Instructions ?Recorded ?Last Taken ?Type tirzepatide (weight loss) 5 mg/0.5 5 mg (0.5 mL) subcut QWEEK 4 weeks 04/07/24 Unknown Rx mL subcutaneous pen injector #2 mL norethindrone (contraceptive) 0.35 0.35 mg PO QDAY #84 tabs 04/22/24 Unknown Rx mg tablet (Cassie) hydroxyzine HCl 25 mg tablet 25 mg PO TID PRN anxiety #90 tabs 08/07/24 Unknown Rx escitalopram oxalate 10 mg tablet 10 mg PO DAILY #90 TABLETS 11/28/24 Unknown Rx Allergy/AdvReac Type Severity Reaction Status Date / Time No Known Allergies Allergy Verified 01/14/25 18:15 Family History Mother Age: 66 Endometriosis Fatty liver disease, nonalcoholic Sister Age: 41 Endometriosis Bipolar disorder Grandfather Prostate cancer Heart disease Grandmother Heart disease Surgical History History of cholecystectomy (01/03/23) S/P cholecystectomy History of foot surgery S/P ACL surgery History of tonsillectomy Social History adopted: No household members: family current occupational status: employed current occupation: [employer] - diesel technology instructor pets and animals: Yes pets and animals: dog(s) Smoking Status: Never smoker Electronic Cigarette Use: not used alcohol intake: current alcohol intake frequency: a few times a week substance use type: does not use caffeine: Yes (2) Type: coffee what type of physical activity do you participate in: walking, running, bicycling and weight training frequency: 3-4 times per week seatbelt use: always do you feel safe at home: Yes additional social history: Single-Grad School [employer] 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 Had a headache yesterday now resolved. Constitutional Constitutional ED: Denies chills or fever(s) Eyes Eyes: Denies blurry vision ENT ENT ED: Denies ear pain Cardiovascular Cardiovascular: Denies chest pain Respiratory/Chest Respiratory/Chest: Denies cough or dyspnea Gastrointestinal Gastrointestinal: Denies abdominal pain, diarrhea, nausea or vomiting Genitourinary Genitourinary ED: Denies dysuria Musculoskeletal Musculoskeletal: Denies arthralgias or back pain Integumentary Denies abscess Neurologic Neurologic: Reports headache(s); Denies paresthesias or weakness Psychiatric Psychiatric: Denies anxiety, depression or suicidal ideation Endocrine Endocrinology: Denies polydipsia Hematologic/Lymphatic Hematologic/Lymphatic: Denies easy bleeding Allergic/Immunologic Allergic/Immunologic ED: Denies mouth swelling or urticaria EXAM Physical Exam Narrative Exam Narrative: Well-appearing 29-year-old female. Vital signs stable afebrile. No acute distress. Family at bedside. H EENT exam pupils round reactive light. Extra motions are intact. Normal speech. No facial droop. Tongue midline. Neck nontender. Lungs clear to auscultation bilaterally. Heart regular rhythm rate about 65 no murmur. Chest wall and ribs nontender. Abdomen soft nontender. Moving all 4 extremities. 5 out of 5 stunner animal strength. Dorsi plantarflexion intact. No drift of either upper or lower extremities. Rapid hand movements normal. Fingertip to nose normal. No drift of the lower extremities. [id number] within normal limits. 5 out of 5 dorsi and plantarflexion. Neurologically she is awake and alert. Answering questions and following commands. NIH score is 0. Normal exam. Normal neurologic exam. Const Vital Signs: 01/14/25 18:15 Temperature 98.3 F Temperature Source Oral Pulse Rate 65 Respiratory Rate 18 Blood Pressure 134/83 H Blood Pressure Mean 100 Pulse Ox 98 Oxygen Delivery Method Room Air Positive well nourished and well developed; Negative for cachectic, contractures or unkempt General Appearance ED: well developed and NAD; Negative for unkempt, cachectic or contractures Nutritional Appearance: Negative for cachectic HEENT Reports moist mucous membranes atraumatic; Negative for trauma Nose: Negative for other Eyes PERRL and EOMs intact bilaterally General Eye ED: Negative for pale conjunctiva or scleral icterus Neck no lymphadenopathy, supple and no JVD General: Negative for tenderness Thyroid: Negative for other Chest Wall inspection of chest normal and palpation of chest normal Resp normal respiratory effort and clear to auscultation bilaterally Effort and Inspection: Negative for retractions Auscultation: Negative for rales, rhonchi, wheezes or diminished lung sounds Cardio no murmurs Rate: regular rate Rhythm: regular rhythm Heart Sounds: S1 normal and S2 normal GI normal to inspection, nondistended, normoactive bowel sounds, soft to palpation, non-tender, non-distended and no masses Auscultation: Negative for normoactive bowel sounds Palpation: Negative for tender, guarding or rebound tenderness present Back/Spine General Back: Negative for CVA tenderness Cervical Spine: Negative for cervical spine tenderness Thoracic Spine / Upper Back: Negative for thoracic spinal tenderness Lumbar Spine / Lower Back: Negative for lumbar spinal tenderness Extremity normal to inspection General Extremety ED: Negative for deformity, edema or tenderness General Extremity: Negative for deformity or edema Neuro oriented x3 and CN's II-XII intact bilaterally Sensorium / Orientation: alert, oriented to person, oriented to place and oriented to time; Negative for orientation impaired, confused, lethargic or stuporous Speech: speech normal Motor Exam: strength 5/5 throughout Psych mental status grossly normal Appearance: Negative for unkempt Attitude: No agitated Mood & Affect: Negative for depressed, anxious or tearful Attention / Concentration: Negative for other Skin no wounds General Skin Exam: Negative for jaundice Rashes: no rashes Trauma: Negative for abrasion, laceration or puncture MDM MDM MDM Narrative Medical decision making narrative: 29-year-old female yesterday had trouble with her speech, tingling in her right hand and trouble writing. Lasted 2 hours and now is completely resolved. She undergo a stroke workup. Her exam right now is normal. Her NIH is 0. Currently having no symptoms. No prior history. Repeat exam at 11:40 PM no change. Neurologic exam is remains normal. NIH remains 0. Patient and and family in the room discussed her exam. Differential would include TIA, stroke, anxiety or migraine with neurologic symptoms. They understand her workup currently is negative. We discussed admission and MRI in the morning which they deferred at this time. Should have follow-up with her primary care physician for further workup and evaluation. She knows to return if further symptoms. History & Record Review Discussion w/independent historian: Patient and Family Lab Data Attestation: I reviewed the patient's lab results. Lab results narrative: CBC shows a white count 7. H&H 13 and 40. Platelets 182. PT/INR 12 and 0.9. PTT is 26. Serum test negative. BMP normal. Chest x-ray unremarkable. Plain CT brain no acute abnormality per radiologist. Labs: Laboratory Results - last 24 hr 01/14/25 22:01 WBC 7.2 RBC 4.43 Hgb 13.7 Hct 40.4 MCV 91.2 MCH 30.9 MCHC 33.9 RDW Std Deviation 40.5 RDW Coeff of Cesar 12.2 Plt Count 182 MPV 10.2 Immature Gran % (Auto) 0.300 Neut % (Auto) 50.9 Lymph % (Auto) 37.1 [place] % (Auto) 9.6 Eos % (Auto) 1.1 Baso % (Auto) 1.0 Absolute Neuts (auto) 3.7 Absolute Lymphs (auto) 2.66 Nucleated RBC % 0 PT 12.6 INR 0.9 APTT 26.1 Serum , Qual NEGATIVE Radiography Chest X-Ray - ED: 1 View, Read by ED Physician, Normal, Heart, Lungs, Mediastinum, Bony Structures and No Acute Disease Diagnostic Testing: Clinical Impression(s) from Imaging Studies Brain CT 01/14/25 22:25 IMPRESSION: No acute intracranial abnormalities. One or more dose reduction techniques were used (e.g., Automated exposure control, adjustment of the mA and/or kV according to patient size, use of iterative reconstruction technique). Reading Location: [place] [id number] Chest x-ray, portable, single view, shows normal cardiac silhouette. Normal lung armas. No acute abnormalities. Interpreted by myself. CT brain and CTA shows no acute abnormalities read by the radiologist and reviewed by me. Rhythm Strip Rhythm Strip: Sinus Rhythm Rate: 60 Ectopy: None EKG Initial EKG: Attestation: I personally reviewed and interpreted this EKG as follows: Interpretation: Sinus Rhythm and No Acute Injury Pattern Comments: Normal sinus rhythm rate of 60 no acute signs of OH or ischemia. Discharge Plan Triage Chief Complaint: Neuro S/Sx ED Provider: Bebo Woods Dx/Rx/DC Orders Clinical Impression: Paresthesia Instructions: ED Paraesthesias Prescriptions: No Action norethindrone (contraceptive) [Cassie] 0.35 mg tablet 0.35 mg PO QDAY Qty: 84 3RF tirzepatide (weight loss) 5 mg/0.5 mL pen injector 5 mg subcut QWEEK 28 Days Qty: 2 1RF hydroxyzine HCl 25 mg tablet 25 mg PO TID PRN (Reason: anxiety) Qty: 90 0RF Rx Instructions: May take 1-2 tablets as needed for anxiety up to TID escitalopram oxalate 10 mg tablet 10 mg PO DAILY Qty: 90 0RF Primary Care Provider: Meli Mims Referrals: Meli Mims MD [Primary Care Provider] - As soon as possible Activity Restrictions/Additional Instructions: No specific cause for your symptoms that occurred yesterday. Could have been a migraine with neurologic symptoms. Currently there is no signs of stroke. Would be unlikely but possible to be a mini stroke. Could even be secondary to anxiety. All your test today were normal as were your CAT scans. Follow-up your primary care physician for further evaluation. Return if you have recurrent symptoms. Print Language: [place] Citizen Disposition Disposition: Home, Self Care
--- NOTE | 2025-01-14 22:00 | RAD_ITS ---
PROCEDURE: CHEST 1 VIEW REASON FOR EXAM: Stroke. TECHNIQUE: Frontal view of the chest. COMPARISON: None. FINDINGS: The cardiac and mediastinal contours are normal. The lungs are clear. RAD/Chest 1 View IMPRESSION: NEGATIVE SINGLE VIEW OF THE CHEST. Reading Location: [place] [id number]
[2025-01-14 22:13] LABS: Absolute Lymphocyte Count 2.66 X10^3/uL (0.83-4.51); Absolute Neutrophil Count 3.7 X10^3/uL (2.0-7.7); Basophil# 0.07 X10^3/uL; Eosinophil# 0.08 X10^3/uL; Eosinophils% 1.1 % (0-5); Hematocrit 40.4 % (37-47); Hemoglobin 13.7 g/dL (12.0-15.0); Lymphocyte # 2.66 X10^3/ul (0.83-4.51); Lymphocyte % 37.1 % (19-41); Mean Corp Hgb Conc 33.9 g/dL (32-36); Mean Corpuscular Hgb 30.9 pg (27.0-32.0); Mean Corpuscular Volume 91.2 fL (81-99); Mean Platelet Vol. 10.2 fl (6.2-12.0); Monocyte# 0.69 X10^3/uL; Monocyte% 9.6 % (0-10); NRBC Flagged by Analyzer 0 % (0-5); Neutrophil # 3.65 X10^3/uL (2.7-7.7); Neutrophil % 50.9 % (47-70); Platelet Count 182 K/mm3 (150-450); RBC Distribution Width CV 12.2 % (11.6-14.6); RBC Distribution Width SD 40.5 fl (35.1-43.9); Red Blood Count 4.43 M/mm3 (4.2-5.4); White Blood Count 7.2 K/mm3 (4.4-11.0)
[2025-01-14 22:22] LABS: Partial Thromboplast Time 26.1 Seconds (24.1-36.2)
--- NOTE | 2025-01-14 22:25 | CT_ITS ---
PROCEDURE: STROKE BRAIN/HEAD WITHOUT CONT REASON FOR EXAM: Stroke alert. TECHNIQUE: CT of the head without contrast was performed. COMPARISON: 11/02/2018. FINDINGS: The ventricles are normal in size and midline in position. No evidence of acute hemorrhage or infarction. No extra-axial blood or fluid collections. The paranasal sinuses are clear. The mastoid air cells are well aerated. The calvarial vault and skull base are intact. CT/STROKE Brain/Head without Cont IMPRESSION: No acute intracranial abnormalities. One or more dose reduction techniques were used (e.g., Automated exposure contr ol, adjustment of the mA and/or kV according to patient size, use of iterative reconstruction technique). Reading Location: [id number]
--- NOTE | 2025-01-14 22:25 | CT_ITS ---
PROCEDURE: STROKE CTA HEAD AND NECK W/CON REASON FOR EXAM: Stroke alert. TECHNIQUE: CTA of the head and neck was performed. 3D reconstructions. IV CONTRAST: 100 cc of Isovue 370. COMPARISON: None. FINDINGS: The carotid, internal carotid, and cervical vertebral arteries are patent without evidence of stenosis or injury. The anterior cerebral, anterior communicating, middle cerebral, and posterior cerebral arteries are patent without evidence of stenosis or occlusion. The intracranial vertebrobasilar system is patent. CT/STROKE CTA Head AND Neck W/Con IMPRESSION: No acute arterial abnormality. One or more dose reduction techniques were used (e.g., Automated exposure contr ol, adjustment of the mA and/or kV according to patient size, use of iterative reconstruction technique). Reading Location: [place] [id number]
[2025-01-14 22:28] LABS: International Normalized Ratio 0.9; Prothrombin Time (Protime)PT. 12.6 SECONDS (11.7-14.9)
[2025-01-14 22:42] LABS: Internal QC Validated? YES +Cl - CLEAR BKGD; Pregnancy, Serum, hCG Quali. NEGATIVE Negative
[2025-01-14 22:54] LABS: Anion Gap 8 (5-15); BUN 11 mg/dL (4-19); BUN/Creat Ratio 15.8 RATIO (10-20); Calcium 9.2 mg/dL (7.6-11.0); Carbon Dioxide 24.6 mmol/L (22.0-29.0); Chloride 107 mmol/L (96-108); Creatinine, Serum 0.7 mg/dL (0.6-1.0); EST Glomerular Filtration Rate 116 (>60); Estimated Creatinine Clearance 129.37 ml/min; Glucose 87 mg/dL (70-99); Sodium Level 139 mmol/L (133-145)
[2025-01-14 23:00] VITALS: BP 114/73; PULSE 75; RESP 19; O2SAT 96
[2025-01-14 23:07] VITALS: BP 116/67; PULSE 80; RESP 14; O2SAT 97
--- NOTE | 2025-01-14 23:08 | ED.RN ---
Pt showed this RN an image of her attempting to write during the neuro event yesterday. Pt was unable to spell certain words, was randomly writing letters and randomly wrote the pound sign. also saw this note.
[2025-01-15] VITALS: BP 119/72; PULSE 67; RESP 18; TEMP 36.3; O2SAT 98
== END 2025-01-15 00:04 | disposition home or self-care (01) ==
PROVIDERS: Emergency Provider Emergency Medicine; PCP Internal Medicine; Visit Provider Emergency Medicine
DX: R20.2 Paresthesia of skin (principal); F32.A Depression, unspecified; F41.9 Anxiety disorder, unspecified; Z79.899 Other long term (current) drug therapy
CPT/HCPCS: 70450; 70496; 70498; 71045; 80048; 84703; 85025; 85610; 85730; 93005; 99284; Q9967; A4216

== ENCOUNTER → 2025-01-27 | Outpatient (CLI) | payer BC, SELFPAY ==
[2025-02-05 20:08] LABS: HPV APTIMA, High Risk Positive (Negative)
== END | disposition home or self-care (01) ==
LOC: LABSPEC 11:43
PROVIDERS: PCP Internal Medicine; Referring Provider Nurse Practitioner Women's Health; Visit Provider Nurse Practitioner Women's Health
DX: Z12.4 Encounter for screening for malignant neoplasm of cervix (principal)
CPT/HCPCS: 88175; G0145

== ENCOUNTER → 2025-03-12 | Outpatient (CLI) | payer BC, SELFPAY ==
--- NOTE | 2025-03-12 07:22 | MRI_ITS ---
PROCEDURE: MRI of the brain without and with intravenous contrast. 03/12/2025 REASON FOR EXAM: COMPLEX MIGRAINE/PARAESTHESIAS. Headache. Tingling sensations. Speech difficulty TECHNIQUE: Multi planar, multisequence MRI images of the brain were obtained without and with IV contrast. 17 cc Clariscan IV contrast was administered. COMPARISON: CT brain 01/14/2025 FINDINGS: Bones of the calvarium are intact. Included upper cervical spinal cord unremarkable. Orbits, sella, and parasellar structures show no specific abnormality. Major basilar intracranial flow voids are present. Paranasal sinuses and mastoid air cells are clear. No middle ear effusion. The included extracranial soft tissues show no specific abnormality. Sorensen-white matter differentiation is maintained. Ventricles normal in caliber and configuration. Basilar cisterns are clear. No areas of restricted diffusion. The cerebellar tonsils are low lying, extending to the level of the foramen magnum. On postcontrast images, no areas of abnormal brain parenchymal enhancement. The major dural venous sinuses are patent. MRI/Brain W/WO Contrast IMPRESSION: No acute intracranial abnormality or abnormal brain parenchymal enhancement. No significant focal white matter lesions on the FLAIR sequence. Reading Location: [facility]
== END | disposition home or self-care (01) ==
PROVIDERS: PCP Internal Medicine; Referring Provider Internal Medicine; Visit Provider Internal Medicine
DX: R47.89 Other speech disturbances (principal); R20.0 Anesthesia of skin; R20.2 Paresthesia of skin
CPT/HCPCS: 70553; A9575

== ENCOUNTER 2025-05-05 07:42 | Emergency (ER) | payer BC, SELFPAY ==
[2025-05-05 07:42] VITALS: BP 141/89; PULSE 96; RESP 16; TEMP 36.9; O2SAT 98; BMI 33.9
--- NOTE | 2025-05-05 08:50 | EDS_ITS ---
HPI History of Present Illness Chief Complaint: Headache Narrative Narrative: 30-year-old female past medical history of previous migraine headaches presents with headache that began this morning when she woke up. While she has had history of migraines, the last being within the last week, she states she had numbness and tingling of her left arm as well and perhaps some of her tongue. She currently rates her headache as 7 out of 10. It is associated with nausea but no vomiting, no fevers or chills. Last menstrual period 2 weeks ago. She states she is come to the emergency department previously was in for headache but it was for the paresthesias and she received a headache cocktail which proved. Additionally she states that she had an MRI as an outpatient last month which did not show anything acute. This was ordered by her primary care provider. She took Excedrin without relief. [facility] Medical History Depression with anxiety Home Medications ?Medication ?Instructions ?Recorded ?Last Taken ?Type hydroxyzine HCl 25 mg tablet 25 mg PO TID PRN anxiety #90 tabs 08/07/24 Unknown Rx norethindrone (contraceptive) 0.35 0.35 mg PO QDAY #84 tabs 01/27/25 Unknown Rx mg tablet (Cassie) escitalopram oxalate 10 mg tablet 10 mg PO DAILY #90 T ABLETS 03/09/25 Unknown Rx Allergy/AdvReac Type Severity Reaction Status Date / Time No Known Allergies Allergy Verified 05/05/25 07:45 Family History Mother Age: 66 Endometriosis Fatty liver disease, nonalcoholic Sister Age: 41 Endometriosis Bipolar disorder Grandfather Prostate cancer Heart disease Grandmother Heart disease Surgical History History of cholecystectomy (01/03/23) S/P cholecystectomy History of foot surgery S/P ACL surgery History of tonsillectomy Social History adopted: No household members: family current occupational status: employed 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 ROS ROS ED ROS Narrative Review of systems positive for headache, nausea but no vomiting, no fevers or chills, no neck pain. Positive photophobia. Improved with standing. Mother states patient complained of headache all week, almost every day, but patient denied. EXAM Physical Exam Narrative Exam Narrative: Afebrile. Vital signs noted. Nontoxic-appearing. Cardiovascular examination regular rate and rhythm. Lungs are clear to auscultation bilaterally. Abdomen is soft, nontender, with positive bowel sounds. Neurological examination nonfocal, nonlateralizing. Patellar DTRs equal and symmetric. Neck soft and supple without meningismus. PERRL, EOMI. Const Vital Signs: 05/05/25 07:42 Temperature 98.4 F Temperature Source Oral Pulse Rate 96 Respiratory Rate 16 Blood Pressure 141/89 H Blood Pressure Mean 106 Pulse Ox 98 Oxygen Delivery Method Room Air MDM MDM MDM Narrative Medical decision making narrative: Differential diagnosis includes but not limited to migrainous type headache versus atypical migraine versus stress headache. I have very low suspicion for subarachnoid hemorrhage. I do not feel CT imaging is indicated currently. This was discussed with the patient and her mother and given her recent negative MRI, I have low suspicion for brain mass or tumor. She was given Compazine, Benadryl, and Toradol and serum and baseline laboratories of CBC and BMP were obtained. She was bolused normal saline 1 L intravenously. I reviewed her laboratory work and she has normal white count of 5.4 with hemoglobin 14.8, hematocrit 42.7, platelet count 191. BMP is grossly unremarkable except for glucose 103. Magnesium normal at 1.9, serum negative. Repeat examination at approximately 10 AM does show her improved. She states her headache is now 4 out of 10 down from a 7. At this point in time, I do feel she can be discharged to follow-up with her primary care provider. She was told that she may need to see a neurologist or headache specialist and perhaps start maintenance medications again for migraines. Return instructions to the emergency department were reviewed. Disposition is discharged home in stable condition. History & Record Review Discussion w/independent historian: Patient Additional record(s) reviewed:: Prior ED visit Lab Data Attestation: I reviewed the patient's lab results. Labs: Laboratory Results - last 24 hr 05/05/25 09:00 WBC 5.4 RBC 4.83 Hgb 14.8 Hct 42.7 MCV 88.4 MCH 30.6 MCHC 34.7 RDW Std Deviation 38.4 RDW Coeff of Cesar 11.9 Plt Count 191 MPV 9.6 Immature Gran % (Auto) 0.400 Neut % (Auto) 61.3 Lymph % (Auto) 27.4 Becker % (Auto) 8.7 Eos % (Auto) 1.5 Baso % (Auto) 0.7 Absolute Neuts (auto) 3.3 Absolute Lymphs (auto) 1.49 Nucleated RBC % 0 Sodium 138 Potassium 4.4 Chloride 103 Carbon Dioxide 25.4 Anion Gap 9 BUN 13 Creatinine 0.75 Estim Creat Clear Calc 120.02 Est GFR (MDRD) Non-Af 111 BUN/Creatinine Ratio 17.2 Glucose 103 H Calcium 9.3 Magnesium 1.9 Serum , Qual NEGATIVE Discharge Plan Triage Chief Complaint: Headache ED Provider: Hermelindo Bal Dx/Rx/DC Orders Clinical Impression: Migraine, Paresthesia of left arm Instructions: ED, Migraine (Classical) Prescriptions: No Action hydroxyzine HCl 25 mg tablet 25 mg PO TID PRN (Reason: anxiety) Qty: 90 0RF Rx Instructions: May take 1-2 tablets as needed for anxiety up to TID norethindrone (contraceptive) [Cassie] 0.35 mg tablet 0.35 mg PO QDAY Qty: 84 3RF escitalopram oxalate 10 mg tablet 10 mg PO DAILY Qty: 90 0RF Primary Care Provider: Meli Mims Referrals: Meli Mims MD [Primary Care Provider] - 3-5 Days if not improving Campbell Dutton MD [Non-Staff -Ordering Privileges] - As soon as possible Activity Restrictions/Additional Instructions: Return with fever, new or worsening symptoms. Follow-up with your primary care provider. You may need to see a neurologist or headache specialist, and start a maintenance medication again. Print Language: Belgian Disposition Disposition: Home, Self Care
[2025-05-05] MEDS: 0.9% Normal Saline (1000mL) 1,000 ML 999 ML IV (09:05)
[2025-05-05] MEDS: proCHLORPERazine 10 MG/2 ML Vial IV (09:08)
[2025-05-05] MEDS: DiphenhydrAMINE 50 MG/ML Syringe 25 MG IV (09:09)
[2025-05-05 09:14] LABS: Absolute Lymphocyte Count 1.49 X10^3/uL (0.83-4.51); Absolute Neutrophil Count 3.3 X10^3/uL (2.0-7.7); Basophil# 0.04 X10^3/uL; Basophil% 0.7 % (0-1); Eosinophil# 0.08 X10^3/uL; Eosinophils% 1.5 % (0-5); Hematocrit 42.7 % (37-47); Hemoglobin 14.8 g/dL (12.0-15.0); Lymphocyte # 1.49 X10^3/ul (0.83-4.51); Lymphocyte % 27.4 % (19-41); Mean Corp Hgb Conc 34.7 g/dL (32-36); Mean Corpuscular Hgb 30.6 pg (27.0-32.0); Mean Corpuscular Volume 88.4 fL (81-99); Mean Platelet Vol. 9.6 fl (6.2-12.0); Monocyte# 0.47 X10^3/uL; Monocyte% 8.7 % (0-10); NRBC Flagged by Analyzer 0 % (0-5); Neutrophil # 3.33 X10^3/uL (2.7-7.7); Neutrophil % 61.3 % (47-70); Platelet Count 191 K/mm3 (150-450); RBC Distribution Width CV 11.9 % (11.6-14.6); RBC Distribution Width SD 38.4 fl (35.1-43.9); Red Blood Count 4.83 M/mm3 (4.2-5.4); White Blood Count 5.4 K/mm3 (4.4-11.0)
[2025-05-05 09:25] LABS: Internal QC Validated? YES +Cl - CLEAR BKGD; Pregnancy, Serum, hCG Quali. NEGATIVE Negative
[2025-05-05 09:39] LABS: Anion Gap 9 (5-15); BUN 13 mg/dL (4-19); BUN/Creat Ratio 17.2 RATIO (10-20); Calcium,Total 9.3 mg/dL (7.6-11.0); Carbon Dioxide 25.4 mmol/L (21.0-32.0); Chloride 103 mmol/L (98-108); Creatinine, Serum 0.75 mg/dL (0.70-1.20); EST Glomerular Filtration Rate 111 (>60); Estimated Creatinine Clearance 120.02 ml/min (50-250); Glucose 103 mg/dL (70-99); Magnesium 1.9 mg/dL (1.5-2.2); Potassium 4.4 mmol/L (3.3-5.1); Sodium Level 138 mmol/L (133-145)
[2025-05-05 09:42] VITALS: PULSE 73; RESP 16
[2025-05-05] MEDS: Ketorolac 15 MG/ML Vial IV (09:53)
[2025-05-05 10:20] VITALS: BP 141/89; PULSE 73; RESP 16; TEMP 36.9; O2SAT 98
--- OUTSIDE RECORDS SUMMARY | 2025-05-05 12:23 | XMS RPT_ITS | CCD ---
Author Organization [facility] Care Team Providers Care Outpatient Coding Specialist Name Role Phone Macy GUM DIPPER, GUM DIPPER-C Yahaira Attending Provider Dr. Meli Mims Primary Care Provider Dr. Meli Mims Referring Provider [phone] Dr. Doni Casey Referring Provider Dr. Meli Mims Attending Provider [phone] Dr. Keren Alcaraz Attending Provider Dr. Meli Mims MD Primary Care Provider [phone] Blake HINTON, Dr. Omar Vyas Attending Provider Blake HINTON, Dr. Omar Vyas Referring Provider Dr. Meli Mims MD Attending Provider Prasanna HINTON, Dr. Garrison Referring Provider Chuck HINTON, Dr. Lagunas Attending Provider Dr. Bebo Woods MD Emergency Provider Randolph GUM DIPPER-C, Yahaira Attending Provider Randolph GUM DIPPER-C, Yahaira Referring Provider Meli Mims Primary Care Unavailable Prasanna, Meli Referring Unavailable Macy GUM DIPPER, Yahaira Attending Unavailable Prasanna, Meli Referring Unavailable Rj Mimsycia Attending Unavailable Prasanna, Meli Primary Care Unavailable Prasanna, Meli Primary Care Unavailable Prasanna, Meli Referring Unavailable Janet Covington Attending Unavailable Prasanna, Meli Attending Unavailable Prasanna, Meli Referring Unavailable [place], Meli Primary Care Unavailable Randolph GUM DIPPER, Yahaira Referring Unavailable Macy GUM DIPPER, Yahaira Attending Unavailable [place], Meli Primary Care Unavailable Prasanna, Meli Attending Unavailable Prasanna, Meli Primary Care Unavailable Prasanna, Meli Referring Unavailable [place], Meli Attending Unavailable [place], Meli Primary Care Unavailable Prasanna, Meli Primary Care Unavailable Bebo Woods Attending Unavailable [place], Meli Primary Care Unavailable Macy GUM DIPPER, Yahaira Referring Unavailable Randolph GUM DIPPER, Yahaira Attending Unavailable [place], Meli Attending Unavailable [place], Meli Primary Care Unavailable [place], Meli Referring Unavailable Prasanna, Meli Primary Care Unavailable [place], Meli Referring Unavailable Macy GUM DIPPER, Yahaira Attending Unavailable Prasanna, Meli Attending Unavailable Prasanna, Meil Primary Care Unavailable Prasanna, Meli Referring Unavailable Prasanna, Meli Primary Care Unavailable Macy GUM DIPPER, Yahaira Referring Unavailable Macy GUM DIPPER, Yahaira Attending Unavailable [place], Meli Primary Care Unavailable Blake, Omar K Referring Unavailable Blake, Omar K Attending Unavailable Prasanna, Meli Attending Unavailable Praasnna, Meli Referring Unavailable Prasanna, Meli Primary Care Unavailable Prasanna, Meli Referring Unavailable Randolph GUM DIPPER, Yahaira Attending Unavailable Prasanna, Meli Primary Care Unavailable Prasanna, Meli Primary Care Unavailable [place], Meli Referring Unavailable [place], Meli Attending Unavailable Medications Current Medications Medication Drug Class(es) Dates Sig (Normalized) Sig (Original) escitalopram 10 mg oral tablet (9 sources) Serotonin Reuptake Inhibitor Start: 01-22-2024 End: 11-28-2024 take 1 tablet by mouth once daily Escitalopram Oxalate 10 mg tablet Active 10 mg PO DAILY November 28, 2024 2:42pm hydrOXYzine hydrochloride 25 mg oral tablet (1 source) Antihistamine Start: 08-07-2024 take 1-2 tablets by mouth three times daily as needed for anxiety Hydroxyzine Hcl 25 mg tablet Active 25 mg PO THREE TIMES A DAY as needed for anxiety August 07, 2024 12:00am May take 1-2 tablets as needed for anxiety up to TID Multivitamin preparation (3 sources) Start: 01-22-2024 take 1 tablet by mouth once daily Multivitamin Active 1 TABLET PO DAILY January 22, 2024 1:00am norethindrone 0.35 mg oral tablet (6 sources) Start: 01-22-2024 End: 01-27-2025 take 1 tablet by mouth once daily Norethindrone (Contraceptive) (Cassie) 0.35 mg tablet Active 0.35 mg PO daily January 27, 2025 9:33am Tirzepatide (Weight Loss) (1 source) Start: 04-07-2024 Tirzepatide (Weight Loss) 5 mg/0.5 mL pen injector Active 5 mg SC EVERY WEEK 01 16April 07, 2024 8:18am Completed/Discontinued Medications Medication Drug Class(es) Dates Sig (Normalized) Sig (Original) 24 hr buPROPion hydrochloride 150 mg extended release oral tablet (4 sources) Aminoketone Start: 11-15-2020 End: 01-22-2024 take 1 tablet by mouth once daily in the morning Bupropion Hcl (Wellbutrin Xl) 150 mg tablet extended release 24 hr Discontinued 150 mg PO EVERY MORNING November 15, 2020 1:00am January 22, 2024 4:26pm cholecalciferol 0.05 mg oral capsule (3 sources) Vitamin D Start: 02-04-2024 End: 01-14-2025 take 1 capsule by mouth once daily Cholecalciferol (Vitamin D3) 50 mcg (2,000 unit) capsule Discontinued 50 ug PO DAILY February 04, 2024 12:00am January 14, 2025 10:21pm 21 day ethinyl estradiol 0.091495 mg/hr / etonogestrel 0.005 mg/hr vaginal system (4 sources) Progestin, Estrogen Start: 11-02-2018 End: 11-15-2020 Etonogestrel-Ethinyl Estradiol .12-.015MG ring Discontinued 1 U VAGINAL EVERY MONTH November 02, 2018 1:00am November 15, 2020 2:15pm miSOPROStol 0.2 mg oral tablet (4 sources) Prostaglandin E1 Analog Start: 11-16-2020 End: 01-22-2024 take 2 tablets under the tongue every two hours Misoprostol (Cytotec) 200 mcg tablet Discontinued 400 ug SL .COMPLEX 4 November 16, 2020 1:00am January 22, 2024 4:25pm 400 mcg sublingual night before procedure and 2 hours prior.; Start: 11-16-2020 End: 01-22-2024 take 2 tablets under the tongue every two hours Misoprostol (Cytotec) 200 mcg tablet Discontinued 400 MCG SL .COMPLEX 4 November 16, 2020 1:00am January 22, 2024 4:25pm 400 mcg sublingual night before procedure and 2 hours prior.; Multivitamin tablet (1 source) Start: 01-22-2024 End: 01-14-2025 Multivitamin tablet Discontinued 1 {tbl} PO DAILY January 22, 2024 1:00am January 14, 2025 10:22pm propranolol hydrochloride 80 mg oral tablet (8 sources) beta-Adrenergic Veto Start: 11-15-2020 End: 01-22-2024 Propranolol 80 mg tablet Discontinued 120 mg PO DAILY November 15, 2020 2:15pm January 22, 2024 4:25pm Start: 11-15-2020 End: 01-22-2024 take 120 mg by mouth once daily Propranolol Discontinu ed 120 MG PO DAILY November 15, 2020 2:15pm January 22, 2024 4:25pm Start: 11-02-2018 End: 11-15-2020 take 1 tablet by mouth once daily Propranolol 80 MG tablet Discontinued 80 mg PO DAILY November 02, 2018 1:00am November 15, 2020 2:15pm SUMAtriptan 100 mg oral tablet (4 sources) Serotonin-1b and Serotonin-1d Receptor Agonist Start: 11-02-2018 End: 11-15-2020 Sumatriptan Succinate 100 MG tablet Discontinued 100 mg PO .X1 PRN as needed for Migraine Symptoms November 02, 2018 1:00am November 15, 2020 2:15pm Tirzepatide (Weight Loss) (4 sources) Start: 03-26-2024 End: 04-07-2024 Tirzepatide (Weight Loss) (Zepbound) 2.5 mg/0.5 mL pen injector Discontinued 2.5 mg SC EVERY WEEK 01 16March 26, 2024 7:27pm April 22, 2024 12:00am April 07, 2024 8:19am Start: 02-05-2024 End: 03-04-2024 Tirzepatide (Weight Loss) (Z epbound) 2.5 mg/0.5 mL pen injector Discontinued 2.5 mg SC EVERY WEEK 2 February 05, 2024 12:00am March 03, 2024 12:00am March 04, 2024 12:06am Start: 02-05-2024 End: 03-04-2024 Tirzepatide (Weight Loss) (Z epbound) 2.5 mg/0.5 mL pen injector Discontinued 2.5 MG SC EVERY WEEK 2 February 05, 2024 12:00am March 04, 2024 12:06am Start: 02-05-2024 Tirzepatide (W eight Loss) (Zepbound) 2.5 mg/0.5 mL pen injector Active 2.5 MG SC EVERY WEEK 2 February 05, 2024 12:00am Problems Active Problems Problem Classification Problem Date Documented Date Episodic/Chronic Administrative/social admission (2 sources) Persons encountering health services in other specified circumstances; Translations: [Other reasons for seeking consultation] 02-04-2024 Episodic Anxiety disorders (8 sources) Mixed anxiety and depressive disorder; Translations: [Other specified anxiety disorders] 11-15-2020 Chronic Contraceptive and procreative management (3 sources) Encounter for removal of intrauterine contraceptive device; Translations: [Encounter for removal of intrauterine contraceptive device] 01-22-2024 Episodic Headache; including migraine (8 sources) Migraine with aura; Translations: [Migraine with aura, not intractable, without status migrainosus] 01-22-2024 Chronic Comment on above: avoid estrogen Nutritional deficiencies (5 sources) Vitamin D deficiency, unspecified; Translations: [Unspecified vitamin D deficiency] 02-04-2024 Chronic Other female genital disorders (1 source) Abnormal uterine and vaginal bleeding, unspecified; Translations: [Abnormal uterine and vaginal bleeding, unspecified] Onset: 05-07-2024 Chronic Other nervous system disorders (1 source) Paresthesia; Translations: [Paresthesia of skin] 01-23-2025 Episodic Other nervous system disorders (1 source) Speech finding; Translations: [Other speech disturbances] 02-03-2025 Episodic Other nervous system disorders (1 source) Paresthesia of hand ; Translations: [Anesthesia of skin] 02-03-2025 Episodic Other nervous system disorders (1 source) Other speech disturbances; Translations: [Other speech disturbances] Onset: 03-17-2025 Episodic Other nervous system disorders (1 source) Paresthesia of skin; Translations: [Paresthesia of skin] Onset: 02-03-2025 Episodic Other nervous system disorders (1 source) Anesthesia of skin; Translations: [Anesthesia of skin] Onset: 02-03-2025 Episodic Other nutritional; endocrine; and metabolic disorders (2 sources) Obesity, unspecified; Translations: [Obesity, unspecified] 02-04-2024 Chronic Other nutritional; endocrine; and metabolic disorders (1 source) Obesity; Translations: [Obesity, unspecified] 08-07-2024 Chronic Other nutritional; endocrine; and metabolic disorders (2 sources) Body mass index 30+ - obesity; Translations: [Obesity, unspecified] 11-04-2024 Chronic Other nutritional; endocrine; and metabolic disorders (3 sources) Weight gain; Translations: [Abnormal weight gain] 01-22-2024 Episodic Other nutritional; endocrine; and metabolic disorders (3 sources) Abnormal weight gain; Translations: [Abnormal weight gain] 01-22-2024 Episodic Other nutritional; endocrine; and metabolic disorders (1 source) Weight increased; Translations: [Abnormal weight gain] 01-22-2024 Episodic Other screening for suspected conditions (not mental disorders or infectious disease) (2 sources) Encounter for screening for malignant neoplasm of cervix; Translations: [Encounter for screening for nutritional disorder] Onset: 04-30-2024 Episodic Other skin disorders (4 sources) Loss of hair; Translations: [Nonscarring hair loss, unspecified] 01-22-2024 Episodic Other skin disorders (5 sources) Nonscarring hair loss, unspecified; Translations: [Alopecia, unspecified] 01-22-2024 Episodic Ovarian cyst (2 sources) Cyst of ovary; Translations: [Unspecified ovarian cyst, left side] 06-17-2024 Episodic Comment on above: stable. Rpt US 6 mo Residual codes; unclassified (4 sources) Flushing; Translations: [Flushing] 01-22-2024 Episodic Residual codes; unclassified (3 sources) Flushing; Translations: [Flushing] 01-22-2024 Episodic Residual codes; unclassified (5 sources) Abnormal cytology findings; Translations: [Low grade squamous intraepithelial lesion (LGSIL)] 01-29-2024 Episodic Comment on above: colp:benign. rpt pap in 1 yr Past or Other Problems Problem Classification Problem Date Documented Da te Episodic/Chronic Abdominal pain (4 sources) Pain in pelvis; Translations: [Pelvic and perineal pain] Onset: 05-14-2024 06-17-2024 Episodic Comment on above: resolved Immunizations and screening for infectious disease (2 sources) Immunization due; Translations: [Encounter for immunization] Onset: 11-04-2024 11-04-2024 Episodic Other upper respiratory infections (1 source) Acute pharyngitis, unspecified; Translations: [Acute pharyngitis, unspecified] Onset: 11-04-2024 Episodic Results Test Name Value Interpretation Reference Range Facility Brain W/WO Contraston 2024 Brain W/WO Contrast [facility] Imaging Services [address] [place] [address] [id number] Brain W/WO Contrast MR#: [id number] Acct: [id number] Name: MARGARITA SEYMOUR Rep #: [id number] : 1995 F 29 From: Alonso English i DO PCP: Dr. Meli Mims MD Status: REG CLI Study: Brain W/WO Contrast Date of Exam: 03/12/25 Exam# [id number] Ordering Dr: Meli Mims MD PROCEDURE: MRI of the brain without and with intravenous contrast. 03/12/2025 REASON FOR EXAM: COMPLEX MIGRAINE/PARAESTHESI . Headache. Tingling sensations. Speech difficulty TECHNIQUE: Multi planar, multisequence MRI images of the brain were obtained without and with IV contrast. 17 cc Clariscan IV contrast was administered. COMPARISON: CT brain 01/14/2025 FINDINGS: Bones of the calvarium are intact. Included upper cervical spinal cord unremarkable. Orbits, sella, and parasellar structures show no specific abnormality. Major basilar intracranial flow voids are present. Paranasal sinuses and mastoid air cells are clear. No middle ear effusion. The included extracranial soft tissues show no specific abnormality. Sorensen-white matter differentiation is maintained. Ventricles normal in caliber and configuration. Basilar cisterns are clear. No areas of restricted diffusion. The cerebellar tonsils are low lying, extending to the level of the foramen magnum. On postcontrast images, no areas of abnormal brain parenchymal enhancement. The major dural venous sinuses are patent. MRI/Brain W/WO Contrast IMPRESSION: No acute intracranial abnormality or abnormal brain parenchymal enhancement. No significant focal white matter lesions on the FLAIR sequence. [facility]: Dr. Meli Mims MD Internal Security Manager: Signed Normal [facility] PAP I-G w/rfx hrHPV-Aptimaon 02-05-2025 ADEQ Comment Normal . [facility] Comment on above: Order Comment: Speci men Comment: [id number] Comment: Source.............CervixSpecimen Comment: LMP / Prev Treat...[id number] Comment: No. of containers..01 ThinPrep Vial Result Comment: Sati sfactory for evaluation. Endocervical and/or squamous metaplastic cells (endocervical component) are present. Performed By: #### L 7400.0353 ####[facility] [address] [facility] [place], [address] COMM . Normal . [facility] Comment on above: Order Comment: Speci men Comment: [id number] Comment: Source.............CervixSpecimen Comment: LMP / Prev Treat...[id number] Comment: No. of containers..01 ThinPrep Vial Performed By: #### L 7400.0353 ####[facility] [address] [facility] [place], [address] COMMENT Comment Normal . [facility] Comment on above: Order Comment: Speci men Comment: [id number] Comment: Source.............CervixSpecimen Comment: LMP / Prev Treat...[id number] Comment: No. of containers..01 ThinPrep Vial Result Comment: This liquid based ThinPrep(R) pap test was screened with the use of an image guided system. Performed By: #### L 7400.0353 ####[facility] [address] [place], [place], [address] DIAG Comment Abnormal . [facility] Comment on above: Order Comment: Speci men Comment: [id number] Comment: Source.............CervixSpecimen Comment: LMP / Prev Treat...[id number] Comment: No. of containers..01 ThinPrep Vial Result Comment: EPIT HELIAL CELL ABNORMALITY. ATYPICAL SQUAMOUS CELLS OF UNDETERMINED SIGNIFICANCE (ASC-US). Performed By: #### L 7400.0353 ####[facility] [address] [place], [place], [id number] HPV APTIMA, HR Positive Abnormal Negative [facility] Comment on above: Order Comment: Speci men Comment: [id number] Comment: Source.............CervixSpecimen Comment: LMP / Prev Treat...[id number] Comment: No. of containers..01 ThinPrep Vial Result Comment: This nucleic acid amplification test detects fourteen high- risk HPV types (16,18,31,33,35,39,45,51,52,56,58,59,66,68) without differentiation. Performed at: [address] [id number] Fixer Supervisor: Candice Ang MD, Phone: [phone] Performed at: [facility] [employer] [address] [place] [id number] Fixer Supervisor: Vinod Frost MD, Phone: [phone] Performed at: = - [address], [place] [id number] Fixer Supervisor: Candice Ang MD, Phone: [phone] Performed By: #### L 7400.0353 ####[facility] [address] [place], [place], [id number] HPV RFLX Comment Normal . [facility] Comment on above: Order Comment: Speci men Comment: [id number] Comment: Source.............CervixSpecimen Comment: LMP / Prev Treat...[id number] Comment: No. of containers..01 ThinPrep Vial Result Comment: See below for HPV testing results. Performed By: #### L 7400.0353 ####[facility] [address] [place], [address] PAPSMR Comment Normal . [facility] Comment on above: Order Comment: Speci men Comment: [id number] Comment: Source.............CervixSpecimen Comment: LMP / Prev Treat...[id number] Comment: No. of containers..01 ThinPrep Vial Result Comment: The Pap smear is a screening test designed to aid in the detection of premalignant and malignant conditions of the uterine cervix. It is not a diagnostic procedure and should not be used as the sole means of detecting cervical cancer. Both false-positive and false-negative reports do occur. Performed By: #### L 7400.0353 ####[facility] [address] [facility] [place], [place], [id number] Path.prov.IDC-9 Comment Normal . [facility] Comment on above: Order Comment: Speci men Comment: [id number] Comment: Source.............CervixSpecimen Comment: LMP / Prev Treat...[id number] Comment: No. of containers..01 ThinPrep Vial Result Comment: R87. 610 Performed By: #### L 7400.0353 ####[facility] [address] [place], [place], [address] PERFORM Comment Normal . [facility] Comment on above: Order Comment: Speci men Comment: [id number] Comment: Source.............CervixSpecimen Comment: LMP / Prev Treat...[id number] Comment: No. of containers..01 ThinPrep Vial Result Comment: Tuyet Larson, Car Rental Clerk (ASCP) Performed By: #### L 7400.0353 ####[facility] [address] [place], [place], [id number] QC REV Comment Normal . [facility] Comment on above: Order Comment: Speci men Comment: [id number] Comment: Source.............CervixSpecimen Comment: LMP / Prev Treat...[id number] Comment: No. of containers..01 ThinPrep Vial Result Comment: Jalyn Gonzalez, Car Rental Clerk Performed By: #### L 7400.0353 ####[facility] [address] [place], [place], [id number] RECOMM Comment Abnormal . [facility] Comment on above: Order Comment: Speci men Comment: [id number] Comment: Source.............CervixSpecimen Comment: LMP / Prev Treat...[id number] Comment: No. of containers..01 ThinPrep Vial Result Comment: Sugg est follow up as clinically appropriate. Performed By: #### L 7400.0353 ####[facility] [address] [place], [place], [id number] SIGN Comment Normal . [facility] Comment on above: Order Comment: Speci men Comment: [id number] Comment: Source.............CervixSpecimen Comment: LMP / Prev Treat...[id number] Comment: No. of containers..01 ThinPrep Vial Result Comment: Anni Ang MD, Pathologist Performed By: #### L 7400.0353 ####[facility] [address] [place], [address] Internal Medicine Office Vis iton 02-02-2025 Internal Medicine Office Visit [facility] [address] [place] [address] [place] [address] OFFICE VISIT Date of Service: 02/03/25 MR#: [id number] Acct: [id number] Name: MARGARITA SEYMOUR Rep #: [id number] : 1995 Provider: Dr. Meli salas MD Age/Sex: 29/F Location: [facility] Status: Signed Intake Vital Signs 11/04/24 08:01 01/27/25 09:30 02/03/25 08:05 Height 5 ft 4 in 5 ft 4 in 5 ft 4 in Weight: 188 lb BMI 32.2 BP 110/70 Blood Pressure Location Lt brachial Position Sitting Respiration 16 Pulse 75 Pulse Source Monitor Temp 97.9 F Temp Source Temporal Pulse Oximetry (%) 97 Oxygen Delivery Method room air Intake Visit Reasons: 3 M FU Lawyer Required: No Is patient in pain?: No Allergies No Known Allergies Allergy (Verified 02/03/25 08:00) Medications ???Medication ???Instructions ???Recorded ???Confirmed ???Type tirzepatide (weight loss) 5 mg/0.5 5 mg (0.5 mL) subcut QWEEK 4 wee ks 04/07/24 02/03/25 Rx mL subcutaneous pen injector #2 mL hydroxyzine HCl 25 mg tablet 25 mg PO TID PRN anxiety #90 tabs 08/07/24 02/03/25 Rx escitalopram oxalate 10 mg tablet 10 mg PO DAILY #90 TABLETS 02/03/25 Rx norethindrone (contraceptive) 0.35 0.35 mg PO QDAY #84 tabs 5 02/03/25 Rx mg tablet (Cassie) Nurse's Note: States she was seen in ER for stroke sx's a few weeks ago, could not find anything nothing has happened since but was told to f/u w/ pcp. 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 pets and animals: Yes pets and animals: dog(s) Smoking Status: Never smoker Electronic Cigarette Use: not used alcohol intake: current alcohol intake frequency: a few times a week substance use type: does not use caffeine: Yes (2) Type: coffee what type of physical activity do you participate in: walking, running, bicycling and weight training frequency: 3-4 times per week seatbelt use: always do you feel safe at home: Yes additional social history: Single-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 She is up to date on her routine blood work. She is up to date on her screening. She is up to date on her immunizations. She doesn't smoke and does not need refills. She reports that she is eating healthy and staying active. She is currently training for a half marathon. The patient reports her mental health has been doing alright. She states work has been stressful, but overall she feels she is doing well. She continues to do well on the lexapro and reports that she is happy with her current dosing. She denies any current concerns about depression or anxiety, nor any thoughts of suicide. She is no longer seeing a psychiatrist. She reports that she has been doing well on the zepbound without problems. She reports she forgot about taking it and missed a couple of doses. She reports she is back to taking it and has had a couple of doses since then. She is tolerating the medication without side effects. She reports she is trying to monitor her diet, but states she slipped on portions. She states she is back to monitoring that. She has added some weight lifting to her exercise regimen which seems to have helped. The patient was seen in the ED last month for right sided tingling of her hand and speech changes. The patient reports she was at work when it happened. She states she wasn't able to express what she wanted to say. She later had trouble dialing and writing. She states her symptoms lasted about an hour and a half and was followed by a headache which lasted for about 24 hours. She reports the headache felt like a dull ache in the center of her frontal area. She did not have any associated nausea or vomiting, sensitivity to light or sound, dizziness/lightheade dness. She states she felt 'foggy' the following day, so she went to the ED at that time. Work up was negative. Admission was discussed to do further testing, but she declined. She reports that her symptoms had resolved completely and she hasn't padilla (more content not included)... Normal [facility] Retail Sales Associate Bilingual Office Visit Reporton 01-27-2025 Retail Sales Associate Bilingual Office Visit Report 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) Chief Complaint: Annual Lawyer Required: No Is patient in pain?: No Allergies No Known Allergies Allergy (Verified 01/27/25 09:25) Medications ???Medication ???Instructions ???Recorded ???Confirmed ???Type tirzepatide (weight loss) 5 mg/0.5 5 mg (0.5 mL) subcut QWEEK 4 wee ks 04/07/24 01/27/25 Rx mL subcutaneous pen injector #2 mL hydroxyzine HCl 25 mg tablet 25 mg PO TID PRN anxiety #90 tabs 08/07/24 01/27/25 Rx escitalopram oxalate 10 mg tablet 10 mg PO DAILY #90 TABLETS 01/27/25 Rx norethindrone (contraceptive) 0.35 0.35 mg PO QDAY #84 tabs 5 01/27/25 Rx mg tablet (Cassie) Is last menstrual period known: Yes Last Menstrual Period: 01/22/25 Post menopausal: No Patient : No : No Control Method: OCP PFSH Medical History Depression with anxiety Surgical History History of cholecystectomy (01/03/23) S/P cholecystectomy History of foot surgery S/P ACL surgery History of tonsillectomy Family History Mother Age: 66 Endometriosis Fatty liver disease, nonalcoholic Sister Age: 41 Endometriosis Bipolar disorder Grandfather Prostate cancer Heart disease Grandmother Heart disease Social History adopted: No household members: family current occupational status: employed 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 pets and animals: Yes pets and animals: dog(s) Smoking Status: Never smoker Electronic Cigarette Use: not used alcohol intake: current alcohol intake frequency: a few times a week substance use type: does not use caffeine: Yes (2) Type: coffee what type of physical activity do you participate in: walking, running, bicycling and weight training frequency: 3-4 times per week seatbelt use: always do you feel safe at home: Yes additional 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 Denies concerns. Hx of complex left ovarian cyst. No longer having pain. Did not do 6 mo follow up US but will. Is on progesterone only OCP. Denies side effects and wishes to continue. Same sexual partner Last PAP: 2023 History of abnormal PAP: LGSIL, benign colp Last mammogram: age 36 Other preventative health care screenings: anaid Female Reproductive History Last Menstrual Period: 01/22/25 Cycle Length: 21-35 Questions: metorrhagia: No, sexually active: Yes, dyspareunia: No and PCB: No ROS Const Constitutional: Denies fatigue, weight gain or weight loss Cardio Card: Denies chest pain Resp Resp: Denies cough or dyspnea on exertion GI GI: Denies abdominal pain, bloating, change in stool character, constipation or vomiting : Reports as per HPI; Denies difficulty voiding, pelvic pain, urinary frequency, urinary incontinence, urinary urgency, vaginal discharge or vaginal pruritus Exam Const General: cooperative, healthy appearing, no acute distress and well developed Orientation: alert, oriented to person and oriented to place HENNC Head: normal to inspection Neck Neck: normal visual inspection Thyroid: thyroid normal Lymphatic: no lymphadenopathy noted Chest Breast inspection: normal inspection of the breasts and normal inspection of the axillae Breast palpation: normal palpation of the breasts, normal palpation of the axillae and no axillary lymphadenopathy Resp Effort Inspection: normal respiratory effort GI Palpation: soft, no masses and nontender Rectal Exam: deferred External Female Exam: normal external appearance and normal appearance of the urethra Urethra: normal appearance of the urethra and normal palpation Speculum Exam - Vagina: normal appearance of the vagina and normal vaginal discharge Speculum Exam - Cervix: normal appearance of the cervix Bimanual Exam- Vagina Uterus: normal bimanual exam, uterine size normal, uterine shape normal and non-tender Bimanual Exam- Adnexa, other: normal adnexae, no masses, normal and non-tender Pelvic (more content not included)... Normal [facility] 12 Lead EKGon 01-14-2025 12 Lead EKG [facility] Cardiovascular Services [address] [place] [address] 12 Lead EKG 01/14/252228 MR#: [id number] Acct: [id number] Name: MARGARITA SEYMOUR Rep #: [id number] : 1995 29 From: Matty Burgess MD Attending Dr: Status: DEP ER Ordering Dr: Bebo Woods MD Date: 01/14/25 Location: ED Sex: F C Admitted: Test Reason : DYSRHYTHMIA Blood Pressure : */* mmHG Vent. Rate : 60 BPM Atrial Rate : 60 BPM P-R Int : 130 ms QRS Dur : 96 ms QT Int : 422 ms P-R-T Axes : 12 6 17 degrees QTcB Int : 422 ms Normal sinus rhythm Normal ECG Confirmed by Matty Burgess ([id number]), order editor SILVA TONG ([id number]) on 01/15/2025 9:33:58 AM Referred By: Confirmed By: Matty Burgess 01/15/25 0934 Date Matty Burgess MD CC: Dr. Meli Mims MD; Dr. Bebo Woods MD Signed Normal [facility] Absolute neutrophil countOrd ered By: Bebo Woods on 01-14-2025 Neutrophils (Bld) [#/Vol] 3.7 10*3/uL 2.0-7.7 [facility] BUN/creatinine ratioOrdered By: Bebo Woods on 01-14-2025 Urea nitrogen/Creatinine [Mass ratio] 15.8 mg/mg 09-07 [facility] Basic Metabolic Profile (BMP )on 01-14-2025 Anion gap [Moles/Vol] 8 mmol/L Normal 04-02 [facility] Comment on above: Performed By: #### L 500.2500, L100.0100, L300.3900, L300.4310 #### [facility] [address] [place], [place], [id number] BUN/CRE 15.8 RATIO Normal 09-07 [facility] Comment on above: Performed By: #### L 500.2500, L100.0100, L300.3900, L300.4310 #### [facility] [address] [place], [address] Calcium [Mass/Vol] 9.2 mg/dL Normal 7.6-11.0 [facility] Comment on above: Performed By: #### L 500.2500, L100.0100, L300.3900, L300.4310 #### [facility] [address] [place], [address] Chloride [Moles/Vol] 107 mmol/L Normal 96-108 [facility] Comment on above: Performed By: #### L 500.2500, L100.0100, L300.3900, L300.4310 #### [facility] [address] [place], [address] CO2 [Moles/Vol] 24.6 mmol/L Normal 22.0-29.0 [facility] Comment on above: Performed By: #### L 500.2500, L100.0100, L300.3900, L300.4310 #### [facility] [address] [place], [address] Creatinine [Mass/Vol] 0.7 mg/dL Normal 0.6-1.0 [facility] Comment on above: Performed By: #### L 500.2500, L100.0100, L300.3900, L300.4310 #### [facility] [address] [place], [address] ECRCL 129.37 ml/min Normal [facility] Comment on above: Performed By: #### L 500.2500, L100.0100, L300.3900, L300.4310 #### [facility] [address] [place], [address] GFR/1.73 sq M.predicted among non-blacks MDRD (S/P/Bld) [Vol rate/Area] 116 mL/min/{1.73_m2} Normal >60 [facility] Comment on above: Result Comment: mL/m in/1.73m2 CKD-EPI Creatinine Equation (2020) Performed By: #### L 500.2500, L100.0100, L300.3900, L300.4310 #### [facility] [address] [place], [address] Glucose [Mass/Vol] 87 mg/dL Normal 70-99 [facility] Comment on above: Performed By: #### L 500.2500, L100.0100, L300.3900, L300.4310 #### [facility] [address] [place], [address] Potassium [Moles/Vol] 4.0 mmol/L Normal 3.3-5.1 [facility] Comment on above: Result Comment: Hemo lysis present, Results??could be affected. ?? Performed By: #### L 500.2500, L100.0100, L300.3900, L300.4310 #### [facility] [address] [place], [address] Sodium [Moles/Vol] 139 mmol/L Normal 133-145 [facility] Comment on above: Performed By: #### L 500.2500, L100.0100, L300.3900, L300.4310 #### [facility] [address] [place], [address] Urea nitrogen [Mass/Vol] 11 mg/dL Normal 4-19 [facility] Comment on above: Performed By: #### L 500.2500, L100.0100, L300.3900, L300.4310 #### [facility] [address] [place], [address] Basophil percentageOrdered B y: Bebo Woods on 01-14-2025 Basophils/100 WBC (Bld) 1.0 % 0-1 [facility] Beta HCG ( test) Ql Ordered By: Bebo Woods on 02-26-2025 Serum Test, Qualitative Negative [facility] CBC W/Diff, Automatedon 02-2 Absolute Lymph 2.66 X10 3/uL Normal 0.83-4.51 [facility] Comment on above: Performed By: #### L 500.2500, L100.0100, L300.3900, L300.4310 #### [facility] [address] [place], [address] Absolute Neut 3.7 X10 3/uL Normal 2.0-7.7 [facility] Comment on above: Performed By: #### L 500.2500, L100.0100, L300.3900, L300.4310 #### [facility] [address] [place], [address] Basophils/100 WBC (Bld) 1.0 % Normal 0-1 [facility] Comment on above: Performed By: #### L 500.2500, L100.0100, L300.3900, L300.4310 #### [facility] [address] [place], [address] Eosinophils/100 WBC (Bld) 1.1 % Normal 0-5 [facility] Comment on above: Performed By: #### L 500.2500, L100.0100, L300.3900, L300.4310 #### [facility] [address] [place], [address] Erythrocyte distribution width (RBC) [Ratio] 12.2 % Normal 11.6-14.6 [facility] Comment on above: Performed By: #### L 500.2500, L100.0100, L300.3900, L300.4310 #### [facility] [address] [place], [address] Hematocrit (Bld) [Volume fraction] 40.4 % Normal 37-47 [facility] Comment on above: Performed By: #### L 500.2500, L100.0100, L300.3900, L300.4310 #### [facility] [address] [place], [address] Hemoglobin (Bld) [Mass/Vol] 13.7 g/dL Normal 12.0-15.0 [facility] Comment on above: Performed By: #### L 500.2500, L100.0100, L300.3900, L300.4310 #### [facility] [address] [place], [address] IG% 0.300 Normal 0.0-0.9 [facility] Comment on above: Result Comment: IG% - Immature Granulocytes (promyelocytes, myelocytes and metamyelocytes) > 1% indicates that a LEFT SHIFT is Present. Performed By: #### L 500.2500, L100.0100, L300.3900, L300.4310 #### [facility] [address] [place], [address] Lymphocytes/100 WBC (Bld) 37.1 % Normal 19-41 [facility] Comment on above: Performed By: #### L 500.2500, L100.0100, L300.3900, L300.4310 #### [facility] [address] [place], [address] MCH (RBC) [Entitic mass] 30.9 pg Normal 27.0-32.0 [facility] Comment on above: Performed By: #### L 500.2500, L100.0100, L300.3900, L300.4310 #### [facility] [address] [place], [address] MCHC (RBC) [Mass/Vol] 33.9 g/dL Normal 32-36 [facility] Comment on above: Performed By: #### L 500.2500, L100.0100, L300.3900, L300.4310 #### [facility] [address] [place], [address] MCV (RBC) [Entitic vol] 91.2 fL Normal 81-99 [facility] Comment on above: Performed By: #### L 500.2500, L100.0100, L300.3900, L300.4310 #### [facility] [address] [place], [address] Monocytes/100 WBC (Bld) 9.6 % Normal 0-10 [facility] Comment on above: Performed By: #### L 500.2500, L100.0100, L300.3900, L300.4310 #### [facility] [address] [place], [address] Neutrophils/100 WBC (Bld) 50.9 % Normal 47-70 [facility] Comment on above: Performed By: #### L 500.2500, L100.0100, L300.3900, L300.4310 #### [facility] [address] [place], [address] Nucleated RBC (Bld) [#/Vol] 0 10*3/uL Normal 0-5 [facility] Comment on above: Performed By: #### L 500.2500, L100.0100, L300.3900, L300.4310 #### [facility] [address] [place], [address] Platelet mean volume (Bld) [Entitic vol] 10.2 fL Normal 6.2-12.0 [facility] Comment on above: Performed By: #### L 500.2500, L100.0100, L300.3900, L300.4310 #### [facility] [address] [place], [address] Platelets (Bld) [#/Vol] 182 10*3/uL Normal 150-450 [facility] Comment on above: Performed By: #### L 500.2500, L100.0100, L300.3900, L300.4310 #### [facility] [address] [place], [address] RBC (Bld) [#/Vol] 4.43 10*6/uL Normal 4.2-5.4 [facility] Comment on above: Performed By: #### L 500.2500, L100.0100, L300.3900, L300.4310 #### [facility] [address] [place], [address] RDW SD 40.5 fl Normal 35.1-43.9 [facility] Comment on above: Performed By: #### L 500.2500, L100.0100, L300.3900, L300.4310 #### [facility] [address] [place], [address] WBC (Bld) [#/Vol] 7.2 10*3/uL Normal 4.4-11.0 [facility] Comment on above: Performed By: #### L 500.2500, L100.0100, L300.3900, L300.4310 #### [facility] [address] [place], [address] Carbon dioxide measurementOr dered By: Bebo Woods on 01-14-2025 CO2 [Moles/Vol] 24.6 mmol/L 22.0-29.0 [facility] Chest 1 Viewon 01-14-2025 Chest 1 View [facility] Imaging Services [address] [place] [address] Chest 1 View MR#: [id number] Acct: [id number] Name: MARGARITA SEYMOUR Rep #: [id number] : 1995 F 29 From: Ezio Smith MD PCP: Dr. Meli Mims MD Status: [facility] ER Study: Chest 1 View Date of Exam: 01/14/25 Exam# [id number] Ordering Dr: Bebo Woods MD PROCEDURE: CHEST 1 VIEW REASON FOR EXAM: Stroke. TECHNIQUE: Frontal view of the chest. COMPARISON: None. FINDINGS: The cardiac and mediastinal contours are normal. The lungs are clear. RAD/Chest 1 View IMPRESSION: NEGATIVE SINGLE VIEW OF THE CHEST. Reading Location: [id number] CC: Dr. Meli Mims MD; Dr. Bebo Woods MD Internal Security Manager: Signed Normal [facility] Chloride measurementOrdered By: Bebo Woods on 01-14-2025 Chloride [Moles/Vol] 107 mmol/L 96-108 [facility] Creatinine [Moles/Vol]Ordere d By: Bebo Woods on 01-14-2025 Creatinine [Mass/Vol] 0.7 mg/dL 0.6-1.0 [facility] Emergency Department Summary on 01-14-2025 Emergency Department Summary [facility] Medical Records Department [address] [place] [address] Emergency Department Summary 01/14/25 MR#: [id number] Acct: [id number] Name: MARGARITA SEYMOUR Rep #: [id number] : 1995 29 From: Bebo Woods MD PCP: Dr. Meli Mims MD Status:REG ER Location: ED HPI History of Present Illness Chief Complaint: Neuro S/Sx Informant: patient Onset/Context/Timing Onset: Yesterday and Hours (2 hours. Beginning around 1 PM yesterday. Resolved.) Context: Gradual Onset Timing: Continuous Onset: 1 PM yesterday. Current Severity: Gone Maximum Severity: Moderate Associated Symptoms Associated Symptoms: Positive for Headache; Negative for Nausea, Vomiting or Chest Pain Narrative Narrative: Healthy 29-year-old female no seen past medical history. Said yesterday at work she had tingling in her right hand and then had trouble speaking and trouble writing. 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 She was trying to write a patient's name and could not write it appropriately. Said this lasted approximately 2 hours. She had a headache afterwards and now it is all completely resolved. Never had anything like this before. No history of stroke or mini stroke. No history of clotting disorder nor family history. Denies any recent head trauma. Denies any recent illness. Today is completely symptom-free. Prior similar symptoms: No Recent Illness/Hospitalizat ion: No PFSH PFSH Medical History Depression with anxiety Home Medications ???Medication ???Instructions ???Recorded ???Last Taken ???Type tirzepatide (weight loss) 5 mg/0.5 5 mg (0.5 mL) subcut QWEEK 4 wee ks 04/07/24 Unknown Rx mL subcutaneous pen injector #2 mL norethindrone (contraceptive) 0.35 0.35 mg PO QDAY #84 tabs 4 Unknown Rx mg tablet (Cassie) hydroxyzine HCl 25 mg tablet 25 mg PO TID PRN anxiety #90 tabs 08/07/24 Unknown Rx escitalopram oxalate 10 mg tablet 10 mg PO DAILY #90 TABLETS Unknown Rx Allergy/AdvReac Type Severity Reaction Status Date / Time No Known Allergies Allergy Verified 01/14/25 18:15 Family History Mother Age: 66 Endometriosis Fatty liver disease, nonalcoholic Sister Age: 41 Endometriosis Bipolar disorder Grandfather Prostate cancer Heart disease Grandmother Heart disease Surgical History History of cholecystectomy (01/03/23) S/P cholecystectomy History of foot surgery S/P ACL surgery History of tonsillectomy Social History adopted: No household members: family current occupational status: employed 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 Had a headache yesterday now resolved. Constitutional Constitutional ED: Denies chills or fever(s) Eyes Eyes: Denies blurry vision ENT ENT ED: Denies ear pain Cardiovascular Cardiovascular: Denies chest pain Respiratory/Chest Respiratory/Chest: Denies cough or dyspnea Gastrointestinal Gastrointestinal: Denies abdominal pain, diarrhea, nausea or vomiting Genitourinary Genitourinary ED: Denies dysuria Musculoskeletal Musculoskeletal: Denies arthralgias or back pain Integumentary Denies abscess Neurologic Neurologic: Reports headache(s); Denies paresthesias or weakness Psychiatric Psychiatric: Denies anxiety, depression or suicidal ideation Endocrine Endocrinology: Denies polydipsia Hematologic/Lymphati c Hematologic/Lymphati c: Denies easy bleeding Allergic/Immunologic Allergic/Immunologic ED: Denies mouth swelling or urticaria EXAM Physical Exam Narrative Exam Narrative: Well-appearing 29-year-old female. Vital signs stable afebrile. No acute distress. Family at bedside. H EENT exam pupils round reactive light. Extra motions are intact. Normal speech. No facial droop. Tongue midline. Neck nontender. Lungs clear to auscultation bilaterally. Heart regular rhythm rate about 65 no murmur. Chest wall and ribs nontender. Abdomen soft nontender. Moving all 4 extremities. 5 out of 5 director underwriter sales strength. Dorsi plantarflexion intact. No drift of either upper or lower extremities. Rapid hand movements normal. Finge (more content not included)... Normal [facility] Eosinophil percentageOrdered By: Bebo Woods on 01-14-2025 Eosinophils/100 WBC (Bld) 1.1 % 0-5 [facility] Erythrocyte distribution wid th ratioOrdered By: Bebo Woods on 01-14-2025 Erythrocyte distribution width (RBC) [Ratio] 12.2 % 11.6-14.6 [facility] Erythrocyte distribution wid th standard deviationOrdered By: Bebo Woods on 01-14-2025 Erythrocyte distribution width (RBC) [Entitic vol] 40.5 fL 35.1-43.9 [facility] Estimation of creatinine kimberly aranceOrdered By: Bebo Woods on 01-14-2025 Estimated Creatinine Clearance Calc 129.37 ml/min [facility] GFR/1.73 sq M.predicted angel g non-blacks MDRD (S/P/Bld) [Vol rate/Area]Ordered By: Bebo Woods on 01-14-2025 Estimated GFR (MDRD) Non-Af Amer 116 >60 [facility] Comment on above: mL/min/1.73m2 CKD-EP I Creatinine Equation (2020) Hematocrit Auto (Bld) [Volum e fraction]Ordered By: Bebo Woods on 01-14-2025 Hematocrit (Bld) [Volume fraction] 40.4 % 37-47 [facility] Hemoglobin measurementOrdere d By: Bebo Woods on 01-14-2025 Hemoglobin (Bld) [Mass/Vol] 13.7 g/dL 12.0-15.0 [facility] Immature granulocytes/100 WB C Auto (Bld)Ordered By: Bebo Woods on 01-14-2025 Immature granulocytes/100 WBC (Bld) 0.300 % 0.0-0.9 [facility] Comment on above: IG% - Immature Granu locytes (promyelocytes, myelocytes and metamyelocytes) > 1% indicates that a LEFT SHIFT is Present. International normalized rat io (INR) calculationOrdered By: Bebo Woods on 01-14-2025 INR Coag (Bld) [Relative time] 0.9 {INR} [facility] Lymphocytes Auto (Unsp spec) [#/Vol]Ordered By: Bebo Woods on 01-14-2025 Lymphocytes (Bld) [#/Vol] 2.66 10*3/uL 0.83-4.5 1 [facility] Lymphocytes/100 WBC Auto (Un sp spec)Ordered By: Bebo Woods on 01-14-2025 Lymphocytes/100 WBC (Bld) 37.1 % 19-41 [facility] MCV (mean corpuscular volume ) determinationOrdered By: Bebo Woods on 01-14-2025 MCV (RBC) [Entitic vol] 91.2 fL 81-99 [facility] Mean corpuscular hemoglobin (MCH) determinationOrdered By: Bebo Woods on 01-14-2025 MCH (RBC) [Entitic mass] 30.9 pg 27.0-32.0 [facility] Mean corpuscular hemoglobin concentration (MCHC) determinationOrdered By: Bebo Woods on 01-14-2025 MCHC (RBC) [Mass/Vol] 33.9 g/dL 32-36 [facility] Mean platelet volume determi nationOrdered By: Bebo Woods on 01-14-2025 Platelet mean volume (Bld) [Entitic vol] 10.2 fL 6.2-12.0 [facility] Monocyte percentageOrdered B y: Bebo Woods on 01-14-2025 Monocytes/100 WBC (Bld) 9.6 % 0-10 [facility] Neutrophil percentageOrdered By: Bebo Woods on 01-14-2025 Neutrophils/100 WBC (Bld) 50.9 % 47-70 [facility] Nucleated red blood cell per centageOrdered By: Bebo Woods on 01-14-2025 Nucleated RBC/100 WBC (Bld) [Ratio] 0 % 0-5 [facility] [facility] Partial Thromboplast Timeon 01-14-2025 aPTT Coag (Bld) [Time] 26.1 s Normal 24.1-36.2 [facility] Comment on above: Performed By: #### L 500.2500, L100.0100, L300.3900, L300.4310 #### [facility] [address] [place], [address] Platelet countOrdered By: Alec Woods on 01-14-2025 Platelets (Bld) [#/Vol] 182 10*3/uL 150-450 [facility] ,Serum,hCG Quali.on 01-14-2025 HCG, SERUM QUAL Negative Normal [facility] Comment on above: Performed By: #### L 700.6800 ####[facility] [address] [place], [address] Prothrombin Time w/INRon INR Coag (PPP) [Relative time] 0.9 {INR} Normal [facility] Comment on above: Performed By: #### L 500.2500, L100.0100, L300.3900, L300.4310 #### [facility] [address] [place], [address] PT Coag (PPP) [Time] 12.6 s Normal 11.7-14.9 [facility] Comment on above: Performed By: #### L 500.2500, L100.0100, L300.3900, L300.4310 #### [facility] [address] [place], [address] Prothrombin timeOrdered By: Bebo Woods on 01-14-2025 PT Coag (PPP) [Time] 12.6 s 11.7-14.9 [facility] RBC Auto (Bld) [#/Vol]Ordere d By: Bebo Woods on 01-14-2025 RBC (Bld) [#/Vol] 4.43 10*6/uL 4.2-5.4 [facility] STROKE Brain/Head without Co nton 01-14-2025 STROKE Brain/Head without Cont [facility] Imaging Services [address] [place] [address] STROKE Brain/Head without Cont MR#: [id number] Acct: [id number] Name: MARGARITA SEYMOUR Rep #: [id number] : 1995 F 29 From: Ezio Smith MD PCP: Dr. Meli Mims MD Status: [facility] ER Study: STROKE Brain/Head without Cont Date of Exam: 0 01/14/25 Exam# [id number] Ordering Dr: Bebo Woods MD PROCEDURE: STROKE BRAIN/HEAD WITHOUT CONT REASON FOR EXAM: Stroke alert. TECHNIQUE: CT of the head without contrast was performed. COMPARISON: 11/02/2018. FINDINGS: The ventricles are normal in size and midline in position. No evidence of acute hemorrhage or infarction. No extra-axial blood or fluid collections. The paranasal sinuses are clear. The mastoid air cells are well aerated. The calvarial vault and skull base are intact. CT/STROKE Brain/Head without Cont IMPRESSION: No acute intracranial abnormalities. One or more dose reduction techniques were used (e.g., Automated exposure control, adjustment of the mA and/or kV according to patient size, use of iterative reconstruction technique). Reading Location: [id number] CC: Dr. Meli Mims MD; Dr. Bebo Woods MD Internal Security Manager: Signed Normal [facility] STROKE CTA Head AND Neck W/C onon 01-14-2025 STROKE CTA Head AND Neck W/Con [facility] Imaging Services [address] [place], [place] [address] STROKE CTA Head AND Neck W/Con MR#: [id number] Acct: [id number] Name: MARGARITA SEYMOUR Rep #: [id number] : 1995 F 29 From: Ezio Smith MD PCP: Dr. Meli Mims MD Status: REG ER Study: STROKE CTA Head AND Neck W/Con Date of Exam: 0 01/14/25 Exam# [id number] Ordering Dr: Bebo Woods MD PROCEDURE: STROKE CTA HEAD AND NECK W/CON REASON FOR EXAM: Stroke alert. TECHNIQUE: CTA of the head and neck was performed. 3D reconstructions. IV CONTRAST: 100 cc of Isovue 370. COMPARISON: None. FINDINGS: The carotid, internal carotid, and cervical vertebral arteries are patent without evidence of stenosis or injury. The anterior cerebral, anterior communicating, middle cerebral, and posterior cerebral arteries are patent without evidence of stenosis or occlusion. The intracranial vertebrobasilar system is patent. CT/STROKE CTA Head AND Neck W/Con IMPRESSION: No acute arterial abnormality. One or more dose reduction techniques were used (e.g., Automated exposure control, adjustment of the mA and/or kV according to patient size, use of iterative reconstruction technique). Reading Location: [place] [address] CC: Dr. Meli Mims MD; Dr. Bebo Woods MD Internal Security Manager: Signed Normal [facility] Serum glucose measurement (m ass/volume)Ordered By: Bebo Woods on 01-14-2025 Glucose [Mass/Vol] 87 mg/dL 70-99 [facility] Serum or plasma anion gap de termination (moles/volume)Ordered By: Bebo Woods on 01-14-2025 Anion gap [Moles/Vol] 8 mmol/L 5-15 [facility] Serum or plasma calcium ashleigh urement (mass/volume)Ordered By: Bebo Woods on 01-14-2025 Calcium [Mass/Vol] 9.2 mg/dL 7.6-11.0 [facility] Serum or plasma potassium me asurementOrdered By: Bebo Woods on 01-14-2025 Potassium [Moles/Vol] 4.0 mmol/L 3.3-5.1 [facility] Comment on above: Hemolysis present, R esults could be affected. Serum or plasma sodium measu rement (moles/volume)Ordered By: Bebo Woods on 01-14-2025 Sodium [Moles/Vol] 139 mmol/L 133-145 [facility] Serum or plasma urea nitroge n measurement (mass/volume)Ordered By: Bebo Woods on 01-14-2025 Urea nitrogen [Mass/Vol] 11 mg/dL 4-19 [facility] White blood cell (WBC) count Ordered By: Bebo Woods on 01-14-2025 WBC (Bld) [#/Vol] 7.2 10*3/uL 4.4-11.0 [facility] aPTT Coag (PPP) [Time]Ordere d By: Bebo Woods on 01-14-2025 aPTT Coag (Bld) [Time] 26.1 s 24.1-36.2 [facility] Internal Medicine Office Vis iton 11-03-2024 Internal Medicine Office Visit [facility] [address] [place] [address] [place] [address] OFFICE VISIT Date of Service: 11/04/24 MR#: [id number] Acct: [id number] Name: MARGARITA SEYMOUR Rep #: [id number] : 1995 Provider: Dr. Meli salas MD Age/Sex: 29/F Location: [facility] Status: Signed Intake Vital Signs 08/07/24 08:07 11/04/24 08:01 Height 5 ft 4 in 5 ft 4 in Weight: 189 lb BMI 32.4 BP 112/70 Blood Pressure Location Lt brachial Position Sitting Respiration 16 Pulse 92 Pulse Source Monitor Temp 97.2 F L Temp Source Temporal Pulse Oximetry (%) 98 Oxygen Delivery Method room air Intake Visit Reasons: 3 m fu Lawyer Required: No Is patient in pain?: No Allergies No Known Allergies Allergy (Verified 11/04/24 07:56) Medications ???Medication ???Instructions ???Recorded ???Confirmed ???Type multivitamin 1 tab PO DAILY 01/22/24 11/04/24 History cholecalciferol (vitamin D3) 50 50 mcg PO DAILY 02/04/24 11/04/24 History mcg (2,000 unit) capsule tirzepatide (weight loss) 5 mg/0.5 5 mg (0.5 mL) subcut QWEEK 4 weeks 04/07/24 11/04/24 Rx mL subcutaneous pen injector #2 mL norethindrone (contraceptive) 0.35 0.35 mg PO QDAY #84 tabs 04/22/24 11/04/24 Rx mg tablet (Cassie) hydroxyzine HCl 25 mg tablet 25 mg PO TID PRN anxiety #90 tabs 08/07/24 11/04/24 Rx escitalopram oxalate 10 mg tablet 10 mg PO DAILY #90 tabs 09/02/24 11/04/24 Rx (Lexapro) Nurse's Note: States the vistaril makes her very tired and she can not take it during the day due to it making her very tired, but it works great at night time was wondering if there was a better alternative. 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 HPI HPI Details: MARGARITA SEYMOUR, is a 29 F who presents to the office today for a follow up. She is up to date on her routine blood work. She is up to date on her screening. She would like her flu shot today. She doesn't smoke and does not need refills. She reports that she is eating healthy and staying active. The patient continues to do well on her lexapro for her mental health, however, has been having increasing symptoms lately. At her last office visit, PRN vistaril was also added. She reports that it has been helpful at night, but reports it makes her tired during the day. Whlie she does feel she needs something, due to it making her tired, she doesn't take it. She reports she has also noticed getting more kidd around her menstrual period. She denies any current concerns about depression or anxiety, nor any thoughts of suicide. She is no longer seeing a psychiatrist. She reports that she has been doing well on the zepbound without problems. She is tolerating the medication without side effects. She reports she did notice a change initially, but feels that it has again slowed down. She reports she is trying to monitor her diet. She will have a lucius bar for breakfast. For lunch, she will have a turkey sandwich or scrambled eggs and for lunch, she will have chicken and a vegetable or noodle, etc. She is down 7 pounds from her last office visit which has been gradual. She has no questions or concerns at this time. ROS Const Constitutional: Positive for weight change (7 pound weight loss); No chills, excessive sweating, fatigue, fever(s), frequent falls, headache(s), snoring, weakness, sleep problems or change in appetite Eyes Eyes: No blurry vision, change in vision, eye pain or Light sensitivity ENT ENT: No abnormal hearing, ear or mastoid pain, tinnitus, nasal congestion, headache(s), nec (more content not included)... Normal [facility] Culture, Throaton 10-11-2024 CUT Mixed normal zack. No Haemophilus, Streptococcus pneumoniae, beta-hemolytic Streptococcus or Staphylococcus aureus isolated. Normal [facility] Comment on above: Performed By: #### M 100.1000 ####[facility] [id number] [place], [address] Internal Medicine Office Vis itocurry 08-07-2024 Internal Medicine Office Visit [facility] [address] [place] [address] [place] [address] OFFICE VISIT Date of Service: 08/07/24 MR#: [id number] Acct: [id number] Name: MARGARITA SEYMOUR Rep #: [id number] : 1995 Provider: RICHARD mcnair Age/Sex: 29/F Location: [facility] Status: Signed Intake Vital Signs 04/07/24 08:04 06/17/24 08:54 08/07/24 08:07 Height 5 ft 4 in 5 ft 4 in 5 ft 4 in Weight: 196 lb BMI 33.6 BP 114/70 Blood Pressure Location Lt brachial Position Sitting Respiration 14 Pulse 86 Pulse Source Monitor Temp 99.5 F H Temp Source Temporal Pulse Oximetry (%) 96 Oxygen Delivery Method room air Intake Visit Reasons: 4 m fu Chief Complaint: US f/u Lawyer Required: No Is patient in pain?: No Allergies No Known Allergies Allergy (Verified 08/07/24 08:02) Medications ???Medication ???Instructions ???Recorded ???Confirmed ???Type multivitamin 1 tab PO DAILY 01/22/24 08/07/24 History cholecalciferol (vitamin D3) 50 50 mcg PO DAILY 02/04/24 08/07/24 History mcg (2,000 unit) capsule escitalopram oxalate 10 mg tablet 10 mg PO DAILY #90 tabs 02/04/24 08/07/24 Rx (Lexapro) tirzepatide (weight loss) 5 mg/0.5 5 mg (0.5 mL) subcut QWEEK 4 weeks 04/07/24 08/07/24 Rx mL subcutaneous pen injector #2 mL norethindrone (contraceptive) 0.35 0.35 mg PO QDAY #84 tabs 04/22/24 08/07/24 Rx mg tablet (Cassie) hydroxyzine HCl 25 mg tablet 25 mg PO TID PRN anxiety #90 tabs 08/07/24 08/07/24 Rx Nurse's Note: Thinks w/ the zepbound she has plateaued it is expensive. Is exercising 5x a week. 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 pets and animals: Yes pets and animals: dog(s) Smoking Status: Never smoker Electronic Cigarette Use: not used alcohol intake: current alcohol intake frequency: a few times a week substance use type: does not use caffeine: Yes (2) Type: coffee what type of physical activity do you participate in: walking, running, bicycling and weight training frequency: 3-4 times per week seatbelt use: always do you feel safe at home: Yes additional social history: Single-Grad School [employer] HPI HPI Chief Complaint: US f/u Details: MARGARITA SEYMOUR, is a 29 F who presents to the office today for routine f/u. She is UTD on screenings and routine labs. She has a history of depression and anxiety currently managed with lexapro. She started the medication 1 year ago. She previously followed with counseling, but reports since moving to [place] she has not reestablished with counseling. She feels she has improved regarding depression but does have increasing anxiety at times. She feels her heart racing and that she cannot catch her breath when she feels anxious like a panic attack is coming on. She is happy with her current dosing of Lexapro but is interested in as needed medication for anxiety. Denies SI/HI. Additionally patient is treated with tirzepatide for weight management. She has lost 10 pounds per her scale over the past 6 months. She states she walks 40 minutes a day 3-5 times per week. She is also monitoring her diet and has increased her protein. She does feel that Has Decreased Her Appetite However She Is Frustrated with Her Weight Plateauing. She Has Missed a Total of 2 Doses over 2 Weeks. Due To Financial Constraints to the Cost of the Compounding Medication and States during That Timeframe She Did Notice That Her Appetite Started to Increase Again. She denies nausea, vomiting, abdominal symptoms reports she tolerates the medication well. Previous RLQ pain at last visit has resolved, she is following with OBGYN for ovarian cyst monitoring. ROS Const Constitutional: No body ache, chills, excessive sweating, fatigue, fever(s), frequent falls, headache(s), snoring, weakness, sleep problems or change in appetite Eyes Eyes: No blurry vision, change in vision, eye pain or Light sensitivity ENT ENT: No abnormal hearing, ear or mastoid pain, tinnitus, nasal congestion, headache(s), neck pain or sore throat Resp Respiratory: No cough, shortness o (more content not included)... Normal [facility] Retail Sales Associate Bilingual Office Visit Reporton 06-17-2024 Retail Sales Associate Bilingual Office Visit Report [facility] [address] [place] [address] OFFICE VISIT Date of Service: 06/17/24 MR#: [id number] Acct: [id number] Name: MARGARITA SEYMOUR Rep #: [id number] : 1995 Provider: RICHARD saini Age/Sex: 29/F [place] [facility] Status: Signed Intake Vital Signs 05/07/24 11:34 06/17/24 08:54 Height 5 ft 4 in 5 ft 4 in Weight: 196 lb 8 oz BMI 33.7 BP 108/70 Intake Visit Reasons: us follow up Chief Complaint: US f/u Lawyer Required: No Is patient in pain?: No Allergies No Known Allergies Allergy (Verified 06/17/24 08:53) Medications ???Medication ???Instructions ???Recorded ???Confirmed ???Type multivitamin 1 tab PO DAILY 01/22/24 06/17/24 History cholecalciferol (vitamin D3) 50 50 mcg PO DAILY 02/04/24 06/17/24 History mcg (2,000 unit) capsule escitalopram oxalate 10 mg tablet 10 mg PO DAILY #90 tabs 02/04/24 06/17/24 Rx (Lexapro) tirzepatide (weight loss) 5 mg/0.5 5 mg (0.5 mL) subcut QWEEK 4 weeks 04/07/24 06/17/24 Rx mL subcutaneous pen injector #2 mL norethindrone (contraceptive) 0.35 0.35 mg PO QDAY #84 tabs 04/22/24 06/17/24 Rx mg tablet (Cassie) Is last menstrual period known: Yes Last Menstrual Period: 05/19/24 Post menopausal: No Patient : No : No PFSH Medical History Depression with anxiety Surgical History History of cholecystectomy (01/03/23) S/P cholecystectomy History of foot surgery S/P ACL surgery History of tonsillectomy Family History Mother Age: 65 Endometriosis Fatty liver disease, nonalcoholic Sister Age: 40 Endometriosis Bipolar disorder Grandfather Prostate cancer Heart disease Grandmother Heart disease Social History adopted: No household members: family current occupational status: employed 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 pets and animals: Yes pets and animals: dog(s) Smoking Status: Never smoker Electronic Cigarette Use: not used alcohol intake: current alcohol intake frequency: a few times a week substance use type: does not use caffeine: Yes (2) Type: coffee what type of physical activity do you participate in: walking, running, bicycling and weight training frequency: 3-4 times per week seatbelt use: always do you feel safe at home: Yes additional social history: Single-Grad School [employer] [facility] follow up Details: MARGARITA SEYMOUR is a 29 year old who presents for follow up ultrasound, pelvic pain. 2nd US confirmed stable left ovarian cyst 2.8cm. She has had bilateral pelvic pain and sometime more on right but states it has resolved over the last couple of weeks. She has now been on the progesterone only OCP X 3 months. (Hx migraine w aura). Female Reproductive History Last Menstrual Period: 05/19/24 Questions: metorrhagia: No, sexually active: Yes, dyspareunia: No and PCB: No ROS Const Constitutional: Reports system reviewed and no additional complaints, except as documented Eyes Eyes: Reports system reviewed and no additional complaints, except as documented GI GI: Denies abdominal pain or change in bowel habits : Reports as per HPI Exam Const General: cooperative and no acute distress Orientation: oriented x3 HENMT Head: normal to inspection and normocephalic Eyes General: appearance normal, both eyes and all related structures Neck Neck: normal visual inspection Resp Effort Inspection: normal respiratory effort Neuro Cognition: normal cognition Speech: speech normal Psych Appearance: grossly normal Mood: congruent mood Affect: normal affect Speech and Movement: speech and movement normal Attitude: cooperative Judgment: judgment good Coding Level of Care Code Off vis,est,level 3 Diagnoses Left ovarian cyst N83.202 Pelvic pain R10.2 LGSIL (low grade squamous intraepithelial dysplasia) Migraine with aura and without status migrainosus, not intractable G43.109 Status migrainosus presence: without status migrainosus Intractability: not intractable Assessment and Plan Assessment and Plan (1) Left ovarian cyst: Status: Acute Comment: stable. Rpt US 6 mo (2) Pelvic pain: Status: Acute Comment: resolved (3) LGSIL (low grade squamous intraepithelial dysplasia): Status: Acute Comment: colp:benign. rpt pap in 1 yr (4) Migraine with aura: Status: Acute Qualifiers: Status migrainosus presence: without status migrainosus Intractability: not intractable Qualified Code(s): G43.109 - Migraine with aura, not intractable, without status migrainosus Comment: (more content not included)... Normal [facility] Pelvic w/ Transvaginalon Pelvic w/ Transvaginal [facility] Imaging Services [address] [place] [address] Pelvic w/ Transvaginal MR#: [id number] Acct: [id number] Name: MARGARITA SEYMOUR Rep #: [id number] : 1995 F 29 From: Mayo romero DO PCP: Dr. Meli Mims MD Status: REG CLI Study: Pelvic w/ Transvaginal Date of Exam: 06/09/24 Exam# [id number] Ordering Dr: Yahaira Cavazos GUM DIPPER GUM DIPPER -C [id number] EXAM: US PELVIS TRANSABDOMINAL AND TRANSVAGINAL, COMPLETE CLINICAL INDICATION: pelvic pain/ovarian cyst TECHNIQUE: Transabdominal and transvaginal pelvic ultrasound was performed with grayscale and color Doppler imaging. Transvaginal imaging was used for better evaluation of the endometrium and adnexa. COMPARISON: Pelvic ultrasound, 05/08/[address] abdomen and pelvis, 05/20/2024. FINDINGS: UTERUS/CERVIX: No significant abnormality. Anteverted. There is no uterine mass. The uterus measures 7.7 x 3.7 x 3.9 cm. The endometrial stripe measures 0.4 cm in thickness. RIGHT OVARY: No significant abnormality. Blood flow is present in the right ovary. The right ovary measures 1.8 x 1.4 x 1.4 cm. LEFT OVARY: There is a 2.8 x 2.2 x 1.5 cm complex mass/cyst in the left ovary which appears similar to the prior sonographic evaluation. Blood flow is present in the left ovary. The left ovary measures 2.8 x 2.5 x 1.8 cm. FREE FLUID: Minimal free fluid in the cul-de-sac. BLADDER: Normal as visualized. Wall is normal thickness for degree of distention. US/Pelvic w/ Transvaginal IMPRESSION: There is a 2.8 x 2.2 x 1.5 cm complex mass/cyst in the left ovary which appears similar to the prior sonographic evaluation. Given persistence, recommend MRI and/or surgical consultation. Electronically Signed: Mayo Cruz DO at 0:05 EDT , CC: RICHARD Cavazos; Dr. Meli Mims MD Internal Security Manager: Signed Normal [facility] Abdomen/Pelvis WITH Contrast on 05-20-2024 Abdomen/Pelvis WITH Contrast [facility] Imaging Services [address] [place], [place] [address] Abdomen/Pelvis WITH Contrast MR#: [id number] Acct: [id number] Name: MARGARITA SEYMOUR Rep #: [id number] : 1995 F 29 From: Alfredo Menendez MD PCP: Dr. Meli Mims MD Status: REG CLI Study: Abdomen/Pelvis WITH Contrast Date of Exam: 01/12 Exam# [id number] Ordering Dr: Meli Mims MD [id number] EXAM: CT ABDOMEN AND PELVIS WITH INTRAVENOUS CONTRAST CLINICAL INDICATION: RLQ abdominal pain TECHNIQUE: Helically acquired images were obtained of the abdomen and pelvis with intravenous contrast. This CT exam was performed using one or more of the following dose reduction techniques: automated exposure control, adjustment of the mA and/or kV according to patient size, and/or use of iterative reconstruction technique. CONTRAST: Oral and amp; IV Readi-CAT and amp; 100mL Isovue-370 COMPARISON: CT Abdomen Pelvis dated 05/08/2012 FINDINGS: LOWER THORAX: Normal. Lung bases are clear. No cardiomegaly. No pericardial effusion. ABDOMEN: LIVER: Normal. Homogeneous. No focal mass. GALLBLADDER AND BILE DUCTS: Interval cholecystectomy. PANCREAS: Normal. No focal cystic or solid mass. SPLEEN: Normal. Normal size without focal cystic or solid mass. ADRENALS: Normal. No nodules. KIDNEYS AND URETERS: Normal. Normal renal size and position. No hydronephrosis. STOMACH AND BOWEL: Normal. No bowel distention. No focal inflammatory change. PELVIS: APPENDIX: Appendix is visualized and normal in appearance. BLADDER: Normal. REPRODUCTIVE: Unremarkable as visualized. No mass. ABDOMEN and PELVIS: INTRAPERITONEAL SPACE: Physiological amount of free fluid noted within the pelvis. No free air. BONES/JOINTS: No suspicious lytic or blastic abnormality. SOFT TISSUES: Normal. No discrete abdominal or pelvic wall hernia. VASCULATURE: Normal. Abdominal aorta is non-dilated. LYMPH NODES: Normal. No enlarged lymph nodes. CT/Abdomen/Pelvis WITH Contrast IMPRESSION: 1. Normal appendix. 2. Interval cholecystectomy. 3. Physiological amount of free fluid within the pelvis likely related to recently ruptured ovarian cyst. Electronically Signed: Alfredo Menendez MD at 10:51 EDT , CC: Dr. Meli Mims MD Internal Security Manager: Signed Normal [facility] Pelvic w/ Transvaginalon Pelvic w/ Transvaginal [facility] Imaging Services [address] [place] [address] [id number] Pelvic w/ Transvaginal MR#: [id number] Acct: [id number] Name: MARGARITA SEYMOUR Rep #: [id number] : 1995 F 29 From: Rangel Souza MD PCP: Dr. Meli Mims MD Status: [facility] Study: Pelvic w/ Transvaginal Date of Exam: 05/16/24 Exam# [id number] Ordering Dr: Meli Mims MD [id number] STUDY: ULTRASOUND OF THE FEMALE PELVIS - COMPLETE REASON FOR EXAM: Female, 29 years old. RLQ abdominal pain, spotting LMP: 04/19/2024 TECHNIQUE: Transabdominal and Transvaginal TECHNICAL QUALITY: Adequate. COMPARISON: None. FINDINGS: The uterus is anteverted and is in a midline position. The uterus measures 8 x 3.8 x 4 cm. Normal uterine cervix. The endometrium measures 5.9 mm in thickness, and is hyperechoic. There is no demonstrated endometrial mass. There is no demonstrated myometrial mass. I.U.D. - The patient does not have an I.U.D. The right ovary is visualized. The right ovary measures 3.1 x 1.9 x 1.4 cm. There is no right ovarian cyst or ovarian mass. There is no visualized right adnexal mass or complex lesion. There is normal arterial and normal venous vascularity. The left ovary is visualized. The left ovary measures 4.6 x 3.2 x 2.8 cm. There is a complex 3.5 x 1.8 x 1.9 cm cyst. There is normal arterial and normal venous vascularity. There is minimal fluid in the cul-de-sac. The bladder is sonographically normal with estimated capacity of 466 mL US/Pelvic w/ Transvaginal IMPRESSION: No suspicious sonographic findings, complex 3.5 cm left adnexal cyst. ACR White Paper guidelines (Nathan, et. al. Radiology 2010; 256(3):943-954) suggest no follow-up is necessary.. Electronically Signed: Len Souza MD at 22:12 EDT , CC: Dr. Meli Mims MD Internal Security Manager: Signed Normal [facility] CBC W/Diff, Automatedon 04-19 Absolute Lymph 1.43 X10 3/uL Normal 0.83-4.51 [facility] Comment on above: Performed By: #### L 100.0100, L700.6800, L500.4050 ####[facility] [address] [place], [address] Absolute Neut 3.2 X10 3/uL Normal 2.0-7.7 [facility] Comment on above: Performed By: #### L 100.0100, L700.6800, L500.4050 ####[facility] [address] [place], [address] Basophils/100 WBC (Bld) 0.6 % Normal 0-1 [facility] Comment on above: Performed By: #### L 100.0100, L700.6800, L500.4050 ####[facility] [address] [place], [address] Eosinophils/100 WBC (Bld) 0.6 % Normal 0-5 [facility] Comment on above: Performed By: #### L 100.0100, L700.6800, L500.4050 ####[facility] [address] [place], [address] Erythrocyte distribution width (RBC) [Ratio] 11.8 % Normal 11.6-14.6 [facility] Comment on above: Performed By: #### L 100.0100, L700.6800, L500.4050 ####[facility] [address] [place], [address] Hematocrit (Bld) [Volume fraction] 44.6 % Normal 37-47 [facility] Comment on above: Performed By: #### L 100.0100, L700.6800, L500.4050 ####[facility] [address] [place], [address] Hemoglobin (Bld) [Mass/Vol] 15.4 g/dL High 12.0-15.0 [facility] Comment on above: Performed By: #### L 100.0100, L700.6800, L500.4050 ####[facility] [address] [place], [address] IG% 0.200 Normal 0.0-0.9 [facility] Comment on above: Result Comment: IG% - Immature Granulocytes (promyelocytes, myelocytes and metamyelocytes) > 1% indicates that a LEFT SHIFT is Present. Performed By: #### L 100.0100, L700.6800, L500.4050 ####[facility] [address] [place], [address] Lymphocytes/100 WBC (Bld) 28.4 % Normal 19-41 [facility] Comment on above: Performed By: #### L 100.0100, L700.6800, L500.4050 ####[facility] [address] [place], [address] MCH (RBC) [Entitic mass] 31.0 pg Normal 27.0-32.0 [facility] Comment on above: Performed By: #### L 100.0100, L700.6800, L500.4050 ####[facility] [address] [place], [address] MCHC (RBC) [Mass/Vol] 34.5 g/dL Normal 32-36 [facility] Comment on above: Performed By: #### L 100.0100, L700.6800, L500.4050 ####[facility] [address] [place], [address] MCV (RBC) [Entitic vol] 89.7 fL Normal 81-99 [facility] Comment on above: Performed By: #### L 100.0100, L700.6800, L500.4050 ####[facility] [address] [place], [address] Monocytes/100 WBC (Bld) 7.1 % Normal 0-10 [facility] Comment on above: Performed By: #### L 100.0100, L700.6800, L500.4050 ####[facility] [address] [place], [address] Neutrophils/100 WBC (Bld) 63.1 % Normal 47-70 [facility] Comment on above: Performed By: #### L 100.0100, L700.6800, L500.4050 ####[facility] [address] [place], [address] Nucleated RBC (Bld) [#/Vol] 0 10*3/uL Normal 0-5 [facility] Comment on above: Performed By: #### L 100.0100, L700.6800, L500.4050 ####[facility] [address] [place], [address] Platelet mean volume (Bld) [Entitic vol] 10.2 fL Normal 6.2-12.0 [facility] Comment on above: Performed By: #### L 100.0100, L700.6800, L500.4050 ####[facility] [address] [place], [address] Platelets (Bld) [#/Vol] 203 10*3/uL Normal 150-450 [facility] Comment on above: Performed By: #### L 100.0100, L700.6800, L500.4050 ####[facility] [address] [place], [address] RBC (Bld) [#/Vol] 4.97 10*6/uL Normal 4.2-5.4 [facility] Comment on above: Performed By: #### L 100.0100, L700.6800, L500.4050 ####[facility] [address] [place], [address] RDW SD 38.4 fl Normal 35.1-43.9 [facility] Comment on above: Performed By: #### L 100.0100, L700.6800, L500.4050 ####[facility] [address] [place], [address] WBC (Bld) [#/Vol] 5.0 10*3/uL Normal 4.4-11.0 [facility] Comment on above: Performed By: #### L 100.0100, L700.6800, L500.4050 ####[facility] [address] [place], [address] Comprehensive Metabolic Prof ilon 05-07-2024 Albumin [Mass/Vol] 4.1 g/dL Normal 3.2-5.0 [facility] Comment on above: Performed By: #### L 100.0100, L700.6800, L500.4050 ####[facility] [address] [place], [address] Albumin/Globulin [Mass ratio] 1.2 {ratio} Normal 0.9-2.4 [facility] Comment on above: Performed By: #### L 100.0100, L700.6800, L500.4050 ####[facility] [address] [place], [address] ALK P 73 U/L Normal 45-117 [facility] Comment on above: Performed By: #### L 100.0100, L700.6800, L500.4050 ####[facility] [address] [place], [address] ALT [Catalytic activity/Vol] 22 U/L Normal 13-56 [facility] Comment on above: Performed By: #### L 100.0100, L700.6800, L500.4050 ####[facility] [address] [place], [address] AST [Catalytic activity/Vol] 24 U/L Normal 15-37 [facility] Comment on above: Performed By: #### L 100.0100, L700.6800, L500.4050 ####[facility] [address] [place], [address] Bilirubin [Mass/Vol] 0.80 mg/dL Normal 0.20-1.00 [facility] Comment on above: Result Comment: For patients on eltrombopag therapy, use of Dimension Pearson TBIL is not recommended. Performed By: #### L 100.0100, L700.6800, L500.4050 ####[facility] [address] [place], [address] BUN/CRE 8.6 RATIO Low 10-20 [facility] Comment on above: Performed By: #### L 100.0100, L700.6800, L500.4050 ####[facility] [address] [place], [address] CA,Total 9.4 mg/dL Normal 8.5-10.1 [facility] Comment on above: Performed By: #### L 100.0100, L700.6800, L500.4050 ####[facility] [address] [place], [address] Chloride [Moles/Vol] 105 mmol/L Normal 98-107 [facility] Comment on above: Performed By: #### L 100.0100, L700.6800, L500.4050 ####[facility] [address] [place], [address] CO2 [Moles/Vol] 28.0 mmol/L Normal 21.0-32.0 [facility] Comment on above: Performed By: #### L 100.0100, L700.6800, L500.4050 ####[facility] [address] [place], [address] Creatinine [Mass/Vol] 0.93 mg/dL Normal 0.55-1.02 [facility] Comment on above: Result Comment: The validity of the calculated GFR GFRAA in patients over 70 years has not been determined. Clinical correlation is essential. Performed By: #### L 100.0100, L700.6800, L500.4050 ####[facility] [address] [place], [address] EST GFR - AA 93 mL/min Normal >60 [facility] Comment on above: Result Comment: Afri can Moldovan GFR Calc Performed By: #### L 100.0100, L700.6800, L500.4050 ####[facility] [address] [place], [address] GAP 4 Low 5-15 [facility] Comment on above: Performed By: #### L 100.0100, L700.6800, L500.4050 ####[facility] [address] [place], [address] GFR/1.73 sq M.predicted among non-blacks MDRD (S/P/Bld) [Vol rate/Area] 77 mL/min/{1.73_m2} Normal >60 [facility] Comment on above: Result Comment: Non- GFR Calc Performed By: #### L 100.0100, L700.6800, L500.4050 ####[facility] [address] [place], [address] Globulin (S) [Mass/Vol] 3.5 g/dL Normal 2.2-4.2 [facility] Comment on above: Performed By: #### L 100.0100, L700.6800, L500.4050 ####[facility] [address] [place], [address] Glucose [Mass/Vol] 102 mg/dL Normal 74-106 [facility] Comment on above: Result Comment: Fast ing Glucose result from 100 to 125 mg/dL suggests IMPAIRED HOMEOSTASIS per A.D.A. criteria. Performed By: #### L 100.0100, L700.6800, L500.4050 ####[facility] [address] [place], [address] Potassium [Moles/Vol] 3.7 mmol/L Normal 3.5-5.1 [facility] Comment on above: Performed By: #### L 100.0100, L700.6800, L500.4050 ####[facility] [address] [place], [address] Sodium [Moles/Vol] 137 mmol/L Normal 136-145 [facility] Comment on above: Performed By: #### L 100.0100, L700.6800, L500.4050 ####[facility] [address] [place], [address] T PROT 7.6 g/dL Normal 6.4-8.2 [facility] Comment on above: Performed By: #### L 100.0100, L700.6800, L500.4050 ####[facility] [address] [place], [address] Urea nitrogen [Mass/Vol] 8 mg/dL Normal 7-18 [facility] Comment on above: Performed By: #### L 100.0100, L700.6800, L500.4050 ####[facility] [address] [place], [address] ,Serum,hCG Quali.on 05-07-2024 HCG, SERUM QUAL Negative Normal [facility] Comment on above: Performed By: #### L 100.0100, L700.6800, L500.4050 ####[facility] [address] [place], [address] Internal Medicine Office Vis iton 05-06-2024 Internal Medicine Office Visit [facility] [address] [place] [address] [place] [address] OFFICE VISIT Date of Service: 05/07/24 MR#: [id number] Acct: [id number] Name: MARGARITA SEYMOUR Rep #: [id number] : 1995 Provider: Dr. Meli salas MD Age/Sex: 29/F Location: [facility] Status: Signed Intake Vital Signs 04/22/24 08:47 05/07/24 11:34 Height 5 ft 4 in 5 ft 4 in Weight: 195 lb BMI 33.5 BP 112/70 Blood Pressure Location Lt brachial Position Sitting Respiration 14 Pulse 76 Pulse Source Monitor Temp 99.4 F H Temp Source Temporal Pulse Oximetry (%) 98 Oxygen Delivery Method room air Intake Visit Reasons: PAIN IN LOWER RT SIDE Lawyer Required: No Is patient in pain?: No Allergies No Known Allergies Allergy (Verified 05/07/24 11:29) Medications ???Medication ???Instructions ???Recorded ???Confirmed ???Type multivitamin 1 tab PO DAILY 01/22/24 05/07/24 History cholecalciferol (vitamin D3) 50 50 mcg PO DAILY 02/04/24 05/07/24 History mcg (2,000 unit) capsule escitalopram oxalate 10 mg tablet 10 mg PO DAILY #90 tabs 02/04/24 05/07/24 Rx (Lexapro) tirzepatide (weight loss) 5 mg/0.5 5 mg (0.5 mL) subcut QWEEK 4 weeks 04/07/24 05/07/24 Rx mL subcutaneous pen injector #2 mL norethindrone (contraceptive) 0.35 0.35 mg PO QDAY #84 tabs 04/22/24 05/07/24 Rx mg tablet (Cassie) Nurse's Note: RLQ pain that started last week as pressure then turned painful, radiated into side and into back, hurt to sit stand and walk. it is somewhat better today. States that pushing anywhere on stomach hu rts. Has also been spotting this week. Has not tried treating w/ anything wonders if it's constipation. States she had diarrhea over weekend. States when she pushes on stomach it is dull and deep and is rated 4/10. States the 2nd time she injected zepbound she got a rash and it is still there injects on fridays. 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 pets and animals: Yes pets and animals: dog(s) Smoking Status: Never smoker Electronic Cigarette Use: not used alcohol intake: current alcohol intake frequency: a few times a week substance use type: does not use caffeine: Yes (2) Type: coffee what type of physical activity do you participate in: walking, running, bicycling and weight training frequency: 3-4 times per week seatbelt use: always do you feel safe at home: Yes additional social history: 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 She has concerns about right side pain. She reports last week, she would notice if she pressed on the area, it was a little uncomfortable and then gradually progressed where she noticed it without pressure. She reports that on Sunday, she started having pain and discomfort in her RLQ which radiated into her side and back. She reports it feels like a dull aching pain. She reports it has improved since Sunday, but hasn't resolved entirely. She denies any associated nausea or vomiting. She reports her appetite has been relatively good. She reports she isn't sure if she is having some constipation. She reports, however, that over the weekend, she had some diarrhea. She hasn't moved her bowels since then, however. She reports she hasn't tried taking or doing anything for her symptoms. The patient also reports she has been having some vaginal spotting which is unusual for her. Her LMP was on April 19 and it was normal. She does take an OCP, but reports there is a chance of . She hasn't had any medication changes recently although her mounjaro dose was increased a few weeks ago. She denies any urinary symptoms nor any fevers. She does have a history of ovarian cysts, which typically resolve on their own. ROS Const Constitutional: No body ache, chills, excessive sweating, fatigue, fever(s), frequent falls, headache(s), snoring, weakness, sleep problems or change in appetite Eyes Eyes: No blurry vision, change in vision, eye pain or Light sensitivity ENT ENT (more content not included)... Normal [facility] Retail Sales Associate Bilingual Office Visit Reporton 04-22-2024 Retail Sales Associate Bilingual Office Visit Report [facility] [address] [place] [address] OFFICE VISIT Date of Service: 04/22/24 MR#: [id number] Acct: [id number] Name: MARGARITA SEYMOUR Rep #: [id number] : 1995 Provider: RICHARD saini Age/Sex: 29/F [place] [facility] [place]: Signed Intake Vital Signs 01/22/24 15:26 04/07/24 08:04 04/22/24 08:47 Height 5 ft 4 in 5 ft 4 in 5 ft 4 in Weight: 198 lb 8 oz BMI 34.0 BP 120/72 Intake Visit Reasons: 3 M MED CHECK Chief Complaint: 3 Mo med check Lawyer Required: No Is patient in pain?: No Allergies No Known Allergies Allergy (Verified 04/22/24 08:48) Medications ???Medication ???Instructions ???Recorded ???Confirmed ???Type multivitamin 1 tab PO DAILY 01/22/24 04/22/24 History cholecalciferol (vitamin D3) 50 50 mcg PO DAILY 02/04/24 04/22/24 History mcg (2,000 unit) capsule escitalopram oxalate 10 mg tablet 10 mg PO DAILY #90 tabs 02/04/24 04/22/24 Rx (Lexapro) tirzepatide (weight loss) 5 mg/0.5 5 mg (0.5 mL) subcut QWEEK 4 weeks 04/07/24 04/22/24 Rx mL subcutaneous pen injector #2 mL norethindrone (contraceptive) 0.35 0.35 mg PO QDAY #84 tabs 04/22/24 04/22/24 Rx mg tablet (Cassie) Is last menstrual period known: Yes Post menopausal: No Patient : No : No PFSH Medical History Depression with anxiety Surgical History History of cholecystectomy (01/03/23) S/P cholecystectomy History of foot surgery S/P ACL surgery History of tonsillectomy Family History Mother Age: 65 Endometriosis Fatty liver disease, nonalcoholic Sister Age: 40 Endometriosis Bipolar disorder Grandfather Prostate cancer Heart disease Grandmother Heart disease Social History adopted: No household members: family current occupational status: employed 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 pets and animals: Yes pets and animals: dog(s) Smoking Status: Never smoker Electronic Cigarette Use: not used alcohol intake: current alcohol intake frequency: a few times a week substance use type: does not use caffeine: Yes (2) Type: coffee what type of physical activity do you participate in: walking, running, bicycling and weight training frequency: 3-4 times per week seatbelt use: always do you feel safe at home: Yes additional social history: Single-Grad 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 She also start Vit D as was deficient. States that she is still having some hot flashes(thyroid studies normal) but energy has improved. Denies any irregular bleeding. Wishes to continue cassie. Recent start of mounjaro per PCP ROS Const Constitutional: Reports system reviewed and no additional complaints, except as documented Eyes Eyes: Reports system reviewed and no additional complaints, except as documented GI GI: Denies abdominal pain or change in bowel habits : Reports as per HPI Exam Const General: cooperative and no acute distress Orientation: oriented x3 HENMT Head: normal to inspection and normocephalic Eyes General: appearance normal, both eyes and all related structures Neck Neck: normal visual inspection Resp Effort Inspection: normal respiratory effort Neuro Cognition: normal cognition Speech: speech normal Psych Appearance: grossly normal Mood: congruent mood Affect: normal affect Speech and Movement: speech and movement normal Attitude: cooperative Judgment: judgment good Coding Level of Care Code Off vis,est,level 3 Diagnoses Migraine with aura and without status migrainosus, not intractable G43.109 Status migrainosus presence: without status migrainosus Intractability: not intractable Vitamin D deficiency E55.9 Assessment and Plan Assessment and Plan (1) Migraine with aura: Status: Acute Qualifiers: Status migrainosus presence: without status migrainosus Intractability: not intractable Qualified Code(s): G43.109 - Migraine with aura, not intractable, without status migrainosus Comment: avoid estrogen (2) Vitamin D deficiency: Status: Acute Orders: Orders Vitamin D,25 Hydroxy Today Z13.21 - Encounter for screening for nutritional disorder Medications: Refilled norethindrone (contraceptive) (Cassie) 0.35 mg PO QDAY 84 tabs 3RF Plan Refill cassie Discussed mounjaro may decrease effectiveness of OCP and to use condoms and report any irregular bleeding Recheck Vit D today 04/22/24 0955 Date _ (more content not included)... Normal [facility] Vitamin D,25 Hydroxyon 04-22 Vitamin D 25-OH 33.8 ng/mL Normal [facility] Comment on above: Result Comment: Nohemi min D 25(OH) Status Range Deficiency <20 ng/mL (50nmol/L) Insufficiency 20 - 30 ng/mL (50 - 75 nmol/L) Sufficiency 30 - 100 ng/mL (75 - 250 nmol/L) Toxicity >100 ng/mL (>250 nmol/L) Performed By: #### L 506.1000 ####[facility] [address] [place], [address] Internal Medicine Office Vis wen 04-03-2024 Internal Medicine Office Visit [facility] [place] [address] [place] [address] OFFICE VISIT Date of Service: 04/07/24 MR#: [id number] Acct: [id number] Name: MARGARITA SEYMOUR Rep #: [id number] : 1995 Provider: Dr. Meli salas MD Age/Sex: 29/F Location: [facility] Status: Signed Intake Vital Signs 03/03/24 14:16 04/07/24 08:04 Height 5 ft 4 in 5 ft 4 in Weight: 200 lb BMI 34.3 BP 108/66 Blood Pressure Location Lt brachial Position Sitting Respiration 16 Pulse 90 Pulse Source Monitor Temp 98.2 F Temp Source Temporal Pulse Oximetry (%) 97 Oxygen Delivery Method room air Intake Visit Reasons: MED FOLLOW UP Chief Complaint: est care Lawyer Required: No Is patient in pain?: No Allergies No Known Allergies Allergy (Verified 04/07/24 07:59) Medications ???Medication ???Instructions ???Recorded ???Confirmed ???Type multivitamin 1 tab PO DAILY 01/22/24 04/07/24 History norethindrone (contraceptive) 0.35 0.35 mg PO QDAY #28 tabs 01/22/24 04/07/24 Rx mg tablet (Cassie) cholecalciferol (vitamin D3) 50 50 mcg PO DAILY 02/04/24 04/07/24 History mcg (2,000 unit) capsule escitalopram oxalate 10 mg tablet 10 mg PO DAILY #90 tabs 02/04/24 04/07/24 Rx (Lexapro) tirzepatide (weight loss) 5 mg/0.5 5 mg (0.5 mL) subcut QWEEK 4 weeks 04/07/24 04/07/24 Rx mL subcutaneous pen injector #2 mL [facility] Medical History (Updated 03/05/24 @ 12:43 by Christel Kidd) Depression with anxiety Surgical History (Updated 04/07/24 @ 07:59 by Marcela Shook MA) History of cholecystectomy (01/03/23) S/P cholecystectomy History of foot surgery S/P ACL surgery History of tonsillectomy Family History (Updated 04/07/24 @ 08:00 by Marcela Shook MA) Mother Age: 65 Endometriosis Fatty liver disease, nonalcoholic Sister Age: 40 Endometriosis Bipolar disorder Grandfather Prostate cancer Heart disease Grandmother Heart disease Social History adopted: No household members: family current occupational status: employed 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 pets and animals: Yes pets and animals: dog(s) Smoking Status: Never smoker Electronic Cigarette Use: not used alcohol intake: current alcohol intake frequency: a few times a week substance use type: does not use caffeine: Yes (2) Type: coffee what type of physical activity do you participate in: walking, running, bicycling and weight training frequency: 3-4 times per week seatbelt use: always do you feel safe at home: Yes additional social history: Single-Grad [employer] [facility] HPI HPI Chief Complaint: est care Details: MARGARITA SEYMOUR, is a 29 F who presents to the office today for a follow up. She is up to date on her routine blood work. She is up to date on her screening. She isn't due for any immunizations. She doesn't smoke and does not need refills. She reports that she is eating healthy and staying active. The patient continues to do well on her lexapro for her mental health. She denies any current concerns about depression or anxiety, nor any thoughts of suicide. She is no longer seeing a psychiatrist. At her last office visit, she had concerns about her weight. Diet and exercise was encouraged and she was started on a course of zepbound. She reports that she has been doing well on the medication without problems. She is tolerating the medication without side effects and not only has noticed some weight loss, but also notes that it makes her have less food thoughts which has been beneficial for her. She is down 7 pounds from her last office visit which has been gradual. She has no questions or concerns at this time. ROS Const Constitutional: Positive for weight change (7 pound weight loss); No body ache, chills, excessive sweating, fatigue, fever(s), frequent falls, headache(s), snoring, weakness, sleep problems or change in appetite Eyes Eyes: No blurry vision, change in vision, eye pain or Light sensitivity ENT ENT: No abnormal hearing, ear or mastoid pain, tinnitus, nasal congestion, headache(s), neck pain or sore throat Resp Respiratory: No cough, shortness of breath, snoring or wheezing Cardio Cardiology: No chest pain at rest, chest pain with exertion, excessive sweating, shortness of breath, dyspnea on exertion, lightheadedness, orthopnea, palpitations or other (no leg swelling) Gastro GI: No abdominal pain, change in bowel habits, constipation, cramping, diarrhea, nausea/dyspepsia or vomiting Genitourinary-Female : No difficulty urinating, burning urination, painful urination, urinary incontinence, urinary frequency, abnormal vaginal bleeding or pelvic pain Musc Musculoskeletal: No abnormal gait, joint pain, back pain, limit (more content not included)... Normal [facility] Absolute lymphocyte countOrd ered By: Meli Mims on 02-05-2024 Lymphocytes Auto (Unsp spec) [#/Vol] 1.91 10*3/uL 0.83-4.51 [facility] Automated lymphocyte count a s percentage of total leukocytesOrdered By: Meli Mims on 02-05-2024 Lymphocytes/100 WBC Auto (Unsp spec) 34.0 % 19-41 [facility] Basophil percentageOrdered B y: Meli Mims on 02-05-2024 Basophils/100 WBC (Bld) 0.5 % 0-1 [facility] Bilirubin [Mass/Vol] 0.60 mg/dL 0.20-1.00 [facility] Comment on above: For patients on eltr ombopag therapy, use of Dimension Pearson TBIL is not recommended. Chloride [Moles/Vol] 110 mmol/L 98-107 [facility] Cholesterol [Mass/Vol] 161 mg/dL <200 [facility] Comment on above: <200 mg/dL Desirable 200-240 mg/dL Borderline >240 mg/dL High Risk Eosinophils/100 WBC (Bld) 0.9 % 0-5 [facility] Glucose [Mass/Vol] 92 mg/dL 74-106 [facility] Hemoglobin (Bld) [Mass/Vol] 15.1 g/dL 12.0-15.0 [facility] Monocytes/100 WBC (Bld) 7.7 % 0-10 [facility] Neutrophils (Bld) [#/Vol] 3.2 10*3/uL 2.0-7.7 [facility] Neutrophils/100 WBC (Bld) 56.7 % 47-70 [facility] Potassium [Moles/Vol] 3.8 mmol/L 3.5-5.1 [facility] Protein [Mass/Vol] 7.0 g/dL 6.4-8.2 [facility] Sodium [Moles/Vol] 140 mmol/L 136-145 [facility] Triglyceride [Mass/Vol] 89 mg/dL <199 [facility] Comment on above: The drugs N-Acetylcy steine and Metamizole may falsely depress this assay.Serum Triglycerides Reference Interval Normal <150 mg/dL Borderline high 150 - 199 mg/dL High 200 - 499 mg/dL Very High > or = 500 mg/dL WBC (Bld) [#/Vol] 5.6 10*3/uL 4.4-11.0 [facility] Determination of erythrocyte mean corpuscular volume (MCV)Ordered By: Meli Mims on 02-05-2024 MCV (RBC) [Entitic vol] 89.6 fL 81-99 [facility] Erythrocyte distribution wid th ratioOrdered By: Meli Mims on 02-05-2024 Erythrocyte distribution width (RBC) [Ratio] 11.9 % 11.6-14.6 [facility] Erythrocyte distribution wid th standard deviationOrdered By: Meli Mims on 02-05-2024 Erythrocyte distribution width (RBC) [Entitic vol] 38.7 fL 35.1-43.9 [facility] Hematocrit Auto (Bld) [Volum e fraction]Ordered By: Meli Mims on 02-05-2024 Hematocrit (Bld) [Volume fraction] 43.8 % 37-47 [facility] Immature granulocytes/100 WB C Auto (Bld)Ordered By: Meli Mims on 02-05-2024 Immature granulocytes/100 WBC (Bld) 0.200 % 0.0-0.9 [facility] Comment on above: IG% - Immature Granu locytes (promyelocytes, myelocytes and metamyelocytes) > 1% indicates that a LEFT SHIFT is Present. Laboratory - Chemistry and C hemistry - challengeOrdered By: Meli Mims on 02-05-2024 Albumin/Globulin [Mass ratio] 1.1 {ratio} 0.9-2.4 [facility] ALP [Catalytic activity/Vol] 73 U/L 45-117 [facility] ALT [Catalytic activity/Vol] 15 U/L 13-56 [facility] Cholesterol in HDL [Mass/Vol] 59 mg/dL >40 [facility] Comment on above: The drugs N-Acetylcy steine and Metamizole may falsely depress this assay. Reference Range HDL <40 mg/dL Low HDL Cholesterol HDL >or= 60 mg/dL High HDL Cholesterol Cholesterol in LDL [Mass/Vol] 84 mg/dL 0-130 [facility] CO2 [Moles/Vol] 26.0 mmol/L 21.0-32.0 [facility] Globulin (S) [Mass/Vol] 3.3 g/dL 2.2-4.2 [facility] Urea nitrogen/Creatinine [Mass ratio] 14.0 mg/mg 10-20 [facility] Laboratory - Hematology and Cell countsOrdered By: Meli Mims on 02-05-2024 MCH (RBC) [Entitic mass] 30.9 pg 27.0-32.0 [facility] MCHC (RBC) [Mass/Vol] 34.5 g/dL 32-36 [facility] Nucleated RBC/100 WBC (Bld) [Ratio] 0 % 0-5 [facility] Platelet mean volume (Bld) [Entitic vol] 9.8 fL 6.2-12.0 [facility] Platelets (Bld) [#/Vol] 206 10*3/uL 150-450 [facility] No Panel InformationOrdered By: Meli Mims on 02-05-2024 Estimated GFR (MDRD) Amer 112 mL/min >60 [facility] Comment on above: GFR Calc Estimated GFR (MDRD) Non-Af Amer 93 mL/min >60 [facility] Comment on above: Non- GFR Calc VLDL Cholesterol 18 mg/dL 5-40 [facility] RBC Auto (Bld) [#/Vol]Ordere d By: Meli Mism on 02-05-2024 RBC (Bld) [#/Vol] 4.89 10*6/uL 4.2-5.4 [facility] Serum or plasma calcium ashleigh urement (mass/volume)Ordered By: Meli Mims on 02-05-2024 Calcium [Mass/Vol] 8.9 mg/dL 8.5-10.1 [facility] Serum or plasma creatinine m easurement (mass/volume)Ordered By: Meli Mims on 02-05-2024 Creatinine [Mass/Vol] 0.79 mg/dL 0.55-1.02 [facility] Comment on above: The validity of the calculated GFR & GFRAA in patients over 70 years has not been determined. Clinical correlation is essential. Serum or plasma urea nitroge n measurement (mass/volume)Ordered By: Meli Mims on 02-05-2024 Urea nitrogen [Mass/Vol] 11 mg/dL 7-18 [facility] Thin prep Papanicolaou smear with manual screeningOrdered By: Meli Mims on 02-05-2024 Thin prep Papanicolaou smear with manual screening 3.7 g/dL 3.2-5.0 [facility] Thin prep Papanicolaou smear with manual screening 15 U/L 15-37 [facility] Thin prep Papanicolaou smear with manual screening 4 5-15 [facility] Cervical or vagninal specime n microscopic examination by cytology stain (reported asOrdered By: Yahaira Cavazos on 01-22-2024 Cytology report Cyto stain Doc (Cvx/Vag) Comment . [facility] Comment on above: The Pap smear is a s creening test designed to aid in thedetection of premalignant and malignant conditions of theuterine cervix. It is not a diagnostic procedure andshould not be used as the sole means of detecting cervicalcancer. Both false-positive and false-negative reports dooccur. Chlamydia trachomatis rRNA d etection by probe and target amplification methodOrdered By: Yahaira Cavazos on 01-22-2024 C. trachomatis rRNA LULU+probe Ql (Unsp spec) Negative Negative [facility] Laboratory - CytologyOrdered By: Yahaira Cavazos on 01-22-2024 Hospital Librarian Cyto stain Nom (Cvx/Vag) [ID] Comment . [facility] Comment on above: Miguel Simon, Car Rental Clerk (ASCP) Pathologist Cyto stain Nom (Cvx/Vag) [ID] Comment . [facility] Comment on above: Candice Ang MD, Pathologist Recommended follow-up Cyto stain Nom (Cvx/Vag) Comment . [facility] Comment on above: Suggest follow up as clinically appropriate. Laboratory - Microbiology an d Antimicrobial susceptibilityOrdered By: Yahaira Cavazos on 01-22-2024 N. gonorrhoeae DNA LULU+probe Ql (Unsp spec) Negative Negative [facility] Comment on above: Performed at: =G - [facility] [address] [id number] Director: Candice Ang MD, Phone: [phone] Laboratory - Miscellaneous t estsOrdered By: Yahaira Cavazos on 01-22-2024 Service comment (Unsp spec) [Interp] . . [facility] No Panel InformationOrdered By: Yahaira Cavazos on 01-22-2024 Human Papillomavirus Screen Comment . [facility] Comment on above: The HPV DNA reflex c riteria were not met with this specimenresult therefore, no HPV testing was performed.Performed at: - [facility] [id number] Director: Candice Ang MD, Phone: [phone] Pathology report final diagnosis Narrative Comment . [facility] Comment on above: R87.612 Vitamin D 25-Hydroxy 21.7 ng/mL [facility] Comment on above: Vitamin D 25(OH) Sta tus Range Deficiency <20 ng/mL (50nmol/L) Insufficiency 20 - 30 ng/mL (50 - 75 nmol/L) Sufficiency 30 - 100 ng/mL (75 - 250 nmol/L) Toxicity >100 ng/mL (>250 nmol/L) No Panel Informationon 01-21 POC Trichomonas (Rapid) Negative [facility] Serum or plasma thyroid stim ulating hormone (TSH) measurement (units/volume)Ordered By: Yahaira Cavazos on 01-22-2024 TSH Qn 1.61 uIU/mL 0.358-3.74 [facility] Serum or plasma thyroperoxid ase antibody assay (units/volume)Ordered By: Yahaira Cavazos on 01-22-2024 TPO Ab Qn 18 [IU]/mL 0-34 [facility] Comment on above: Performed at: - [facility] [address] [id number] Director: Jorge Luis Brink PhD, Phone: [phone] Thin prep Papanicolaou smear with manual screeningOrdered By: Yahaira Cvaazos on 01-22-2024 Thin prep Papanicolaou smear with manual screening Comment . [facility] Comment on above: EPITHELIAL CELL ABNO RMALITY.LOW GRADE SQUAMOUS INTRAEPITHELIAL LESION (LSIL). This liquid based Th inPrep(R) pap test was screened withthe use of an image guided system. Thin prep Papanicolaou smear with manual screening 0.85 ng/dL 0.76-1.46 [facility] Vital Signs Date Time Vital Sign Value Performing Clinician Faci lity 02-03-2025 08:05-0400 Body height 162.[address] Meli Mims MD Work Phone: [facility] 02-03-2025 08:05-0400 Body mass index (BMI) [Ratio] 32.2 kg/m2 Dr. Meli Mims MD Work Phone: [facility] 02-03-2025 08:05-0400 Body temperature 97.9 [degF] Dr. Meli Mims MD Work Phone: [facility] 02-03-2025 08:05-0400 Body weight 85.[address] Meli Mims MD Work Phone: [facility] 02-03-2025 08:05-0400 Diastolic blood pressure 70 mm[Hg] Dr. Meli Mims MD Work Phone: [facility] 02-03-2025 08:05-0400 Heart rate 75 /min Dr. Meli Mims MD Work Phone: [facility] 02-03-2025 08:05-0400 Respiratory rate 16 /min Dr. Meli Mims MD Work Phone: [facility] 02-03-2025 08:05-0400 SaO2% (BldA) [Mass fraction] 97 % Dr. Meli Mims MD Work Phone: [facility] 02-03-2025 08:05-0400 Systolic blood pressure 110 mm[Hg] Dr. Meli Mims MD Work Phone: [facility] 01-27-2025 09:26-0400 Body mass index (BMI) [Ratio] 32.6 kg/m2 Dr. Meli Mims MD Work Phone: [facility] 01-27-2025 09:26-0400 Body weight 86.[address] Meli Mims MD Work Phone: [facility] 01-27-2025 09:26-0400 Diastolic blood pressure 66 mm[Hg] Dr. Meli Mims MD Work Phone: [facility] 01-27-2025 09:26-0400 Systolic blood pressure 110 mm[Hg] Dr. Meli Mims MD Work Phone: [facility] 01-15-2025 00:00-0500 Body temperature 97.4 [degF] Dr. Meli Mims MD Work Phone: [facility] 01-15-2025 00:00-0500 Diastolic blood pressure 72 mm[Hg] Dr. Meli Mims MD Work Phone: [facility] 01-15-2025 00:00-0500 Heart rate 67 /min Dr. Meli Mims MD Work Phone: [facility] 01-15-2025 00:00-0500 Respiratory rate 18 /min Dr. Meli Mims MD Work Phone: [facility] 01-15-2025 00:00-0500 SaO2% (BldA) [Mass fraction] 98 % Dr. Meli Mims MD Work Phone: [facility] 01-15-2025 00:00-0500 Systolic blood pressure 119 mm[Hg] Dr. Meli Mims MD Work Phone: [facility] 01-14-2025 21:20-0500 Body mass index (BMI) [Ratio] 33.7 kg/m2 Dr. Meli Mims MD Work Phone: [facility] 01-14-2025 21:20-0500 Body weight 89.[address] Meli Mims MD Work Phone: [facility] 11-04-2024 08:01-0500 Body mass index (BMI) [Ratio] 32.4 kg/m2 Dr. Meli Mims MD Work Phone: [facility] 11-04-2024 08:01-0500 Body temperature 97.2 [degF] Dr. Meli Mims MD Work Phone: [facility] 11-04-2024 08:01-0500 Body weight 85.[address] Meli Mims MD Work Phone: [facility] 11-04-2024 08:01-0500 Diastolic blood pressure 70 mm[Hg] Dr. Meli Mims MD Work Phone: [facility] 11-04-2024 08:01-0500 Heart rate 92 /min Dr. Meli Mims MD Work Phone: [facility] 11-04-2024 08:01-0500 Respiratory rate 16 /min Dr. Meli Mims MD Work Phone: [facility] 11-04-2024 08:01-0500 SaO2% (BldA) [Mass fraction] 98 % Dr. Meli Mims MD Work Phone: [facility] 11-04-2024 08:01-0500 Systolic blood pressure 112 mm[Hg] Dr. Meli Mims MD Work Phone: [facility] 03-03-2024 14:16-0400 Body height 162.[address] Meli Mims Work Phone: [facility] 03-03-2024 14:15-0400 Body mass index (BMI) [Ratio] 35.4 kg/m2 Dr. Meli Mims Work Phone: [facility] 03-03-2024 14:15-0400 Body weight 93.[address] Meli Mims Work Phone: [facility] 03-03-2024 14:15-0400 Diastolic blood pressure 81 mm[Hg] Dr. Meli Mims Work Phone: [facility] 03-03-2024 14:15-0400 Systolic blood pressure 125 mm[Hg] Dr. Meli Mims Work Phone: [facility] 02-04-2024 07:44-0400 Body height 162.[address] Meli Mims Work Phone: [facility] 02-04-2024 07:44-0400 Body mass index (BMI) [Ratio] 35.5 kg/m2 Dr. Meli Mims Work Phone: [facility] 02-04-2024 07:44-0400 Body temperature 97.9 [degF] Dr. Meli Mims Work Phone: [facility] 02-04-2024 07:44-0400 Body weight 93.[address] Meli Mims Work Phone: [facility] 02-04-2024 07:44-0400 Diastolic blood pressure 80 mm[Hg] Dr. Meli Mims Work Phone: [facility] 02-04-2024 07:44-0400 Heart rate 98 /min Dr. Meli Mims Work Phone: [facility] 02-04-2024 07:44-0400 Respiratory rate 14 /min Dr. Meli Mims Work Phone: [facility] 02-04-2024 07:44-0400 SaO2% (BldA) [Mass fraction] 98 % Dr. Meli Mims Work Phone: [facility] 02-04-2024 07:44-0400 Systolic blood pressure 114 mm[Hg] Dr. Meli Mims Work Phone: [facility] 01-22-2024 15:26-0500 Body height 162.[address] Meli Mims Work Phone: [facility] 01-22-2024 15:16-0500 Body mass index (BMI) [Ratio] 35.5 kg/m2 Dr. Meli Mims Work Phone: [facility] 01-22-2024 15:16-0500 Body weight [address] Meli Mims Work Phone: [facility] 01-22-2024 15:16-0500 Diastolic blood pressure 84 mm[Hg] Dr. Meli Mims Work Phone: [facility] 01-22-2024 15:16-0500 Systolic blood pressure 132 mm[Hg] Dr. Meli Mims Work Phone: [facility] Encounters Encounter Date Encounter Type Care Provider Facility Start: 03-12-2025 End: 03-12-2025 ambulatory Meli Mims Facility:[facility] Start: 02-03-2025 End: 02-03-[address] Meli Mims MD -[facility] Work Phone: Start: 02-03-2025 End: 02-03-2025 ambulatory Meli Mims Facility:[facility] Start: 01-27-2025 End: 01-27-[address] Meli Mims MD Work Phone: [facility] Work Phone: Start: 01-27-2025 End: 01-27-2025 Patient encounter procedure Yahaira RAMOS -Laboratory, Specimen Work Phone: Start: 01-27-2025 End: 01-27-2025 Patient encounter procedure Yahaira MARREROC -[facility] Work Phone: Start: 01-27-2025 End: 01-27-2025 Patient encounter status Yahaira Cavazos GUM DIPPER-C [facility] Start: 01-27-2025 End: 01-27-2025 ambulatory Meli [place] Facility:[facility] Start: 01-27-2025 End: 01-27-2025 ambulatory Meli [place]as[place] Facility:[facility] Start: 01-14-2025 End: 01-15-2025 Emergency department patient visit Dr. Bebo Woods MD -Emergency Department Work Phone: Start: 11-04-2024 End: 11-04-[address] Meli Mims MD -[facility] Work Phone: Start: 11-04-2024 End: 11-04-2024 ambulatory Meli Prasanna Facility:[facility] Start: 10-08-2024 End: 10-08-[address] Omar Lozano MD -Laboratory, Specimen Work Phone: Start: 10-08-2024 End: 10-08-2024 ambulatory Meli [place] Facility:[facility] Start: 08-07-2024 End: 08-07-2024 ambulatory Meli [place] Facility:[facility] Start: 06-17-2024 End: 06-17-2024 ambulatory Meli [place] Facility:[facility] Start: 06-09-2024 End: 06-09-2024 ambulatory Yahaira Cavazos GUM DIPPER Facility:[facility] Start: 05-20-2024 End: 05-20-2024 ambulatory Meli [place] Facility:[facility] Start: 05-16-2024 End: 05-16-2024 ambulatory Meli [place] Facility:[facility] Start: 05-07-2024 End: 05-07-2024 ambulatory Meli [place] Facility:[facility] Start: 05-07-2024 End: 05-07-2024 ambulatory Meli [place] Facility:[facility] Start: 04-22-2024 End: 04-22-2024 ambulatory Meli Prasanna Facility:[facility] Start: 04-22-2024 End: 04-22-2024 ambulatory Meli Mims Facility:[facility] Start: 04-07-2024 End: 04-07-2024 ambulatory Meli Mims Facility:[facility] Start: 03-03-2024 End: 03-03-[address] Meli Mims Work Phone: [facility] Work Phone: Start: 03-03-2024 End: 03-03-[address] Meli Mims Work Phone: [facility]-Laboratory, Specimen Work Phone: Start: 03-03-2024 End: 03-03-[address] Meli Mims Work Phone: [facility] Work Phone: Start: 02-05-2024 End: 02-05-[address] Meli Mims Work Phone: [facility] Work Phone: Start: 02-05-2024 End: 02-05-[address] Meli Mims Work Phone: [facility]-Laboratory Work Phone: Start: 02-04-2024 End: 02-04-[address] Meli Mims Work Phone: [facility] Work Phone: Start: 01-22-2024 End: 01-22-[address] Meli Mims Work Phone: [facility] Work Phone: Start: 01-22-2024 End: 01-22-[address] Meli Mims Work Phone: [facility] Work Phone: Procedures Date Procedure Procedure Detail Performing Clinician Start: 01-14-2025 CT angiography of he ad and neck Dr. Meli Mims MD Work Phone: Start: 01-14-2025 CT of head without contrast Dr. Meli Mims MD Work Phone: Start: 01-14-2025 Plain chest X-ray Dr. Javier Mims MD Work Phone: Start: 10-08-2024 Bacteria identificat ion test Dr. Meli Mims MD Work Phone: Start: 10-08-[address] Hernesto Mims MD Work Phone: Plan of Treatment Date Care Activity Detail Author Start: 01-27-2025 Liquid based cervica l cytology screening [facility] Start: 01-14-2025 [facility] Start: 01-14-2025 [facility] Start: 01-22-2024 Liquid based cervica l cytology screening [facility] MR Brain WO and W contrast IV [facility] Path report.final Dx Spec [facility] Path report.final Dx Spec [facility] Patient Education ED Paraesthesias [facility] Work Phone: Patient referral [facility] Work Phone: Immunizations Immunization Date Immunization Notes Care Provider [facility] 11-04-2024 influenza, injectabl e, madin ren canine kidney, preservative free Dr. Meli Mims MD Work Phone: [facility] 11-04-2024 Influenza, injectabl e, Madin Russell Canine Kidney, preservative free, quadrivalent Dr. Meli Mims MD Work Phone: [facility] 04-22-[address] Meli Mims Work Phone: [facility] 04-20-2014 meningococcal polysaccharide (groups A, C, Y and W-135) diphtheria toxoid conjugate vaccine (MCV4P) Dr. Meli Mims Work Phone: [facility] 04-20-2014 tetanus toxoid, redu whitney diphtheria toxoid, and acellular pertussis vaccine, adsorbed Dr. Meli Mims Work Phone: [facility] Payers Date Payer Category Payer Unknown [id number] 2024 Self-pay [id number] 2024 Unknown [id number] Private Health Insurance [facility] [id number] Unknown MYRNA VALDES *NOT CONTRACTED* [id number] Unknown [id number] Unknown [id number] Unknown [id number] Unknown [id number]. 462 Unknown [id number] 2.16.840.1.558356.3.579.2. 462 Unknown [id number] 2.16.840.1.487160.3.579.2. 462 Unknown [id number] 2.16.840.1.707868.3.579.2. 462 Unknown [id number] 2.16.840.1.964490.3.579.2. 462 Unknown [id number] 2.16.840.1.497703.3.579.2. 462 Unknown [id number] 2.16.840.1.223655.3.579.2. 462 Unknown [id number] 2.16.840.1.598392.3.579.2. 462 Unknown [id number] 2.16.840.1.065764.3.579.2. 462 Unknown [id number] 2.16.840.1.707872.3.579.2. 462 Unknown [id number] 2.16.840.1.952474.3.579.2. 462 Unknown [id number] 2.16.840.1.223509.3.579.2. 462 Unknown [id number] 2.16.840.1.760658.3.579.2. 462 Unknown [id number] 2.16.840.1.552174.3.579.2. 462 Social History Date Type Detail Facility Start: 01-22-2024 End: 02-04-2024 Tobacco smoking status VAIS Unknown if ever smoked [facility] Start: 1995 Sex Assigned At Female [facility] Start: 01-14-2025 Tobacco smoking stat [facility] Never smoked tobacco (finding) [facility] Start: 02-05-2025 Sex Female (finding) [facility] Mental Status Date Assessment Result Facility 01-14-2025 Cognitive function Voice/Name [facility] Work Phone: Evaluation note 11-04-2024 Note Date & Type Note Facility 11-04-2024 Evaluation note Diagnosis Onset Date Resolution Depression with anxiety acute D ecember 2023 7:54am Immunization due noneactive November 04, 2024 7:54am Vitamin D deficiency noneactive Dece mber 2023 7:54am Obesity (BMI 30-39.9) noneactive Dec ember 2023 7:54am Left ovarian cyst acute January 172024 9:24am LGSIL (low grade squamous intraepithelial dysplasia) acute January 27, 2025 9:24am Migraine with aura acute January 27, 2025 9:24am Encounter for routine gynecological examination noneactive January 27, 2025 9:24am Depression with anxiety acute M arch 2024 8:00am Alteration in speech noneactive [facility] 2024 8:00am Numbness and tingling of right hand noneactive February 03, 2025 8:00am Vitamin D deficiency noneactive Manfred h 2024 8:00am Obesity (BMI 30-39.9) noneactive Mar ch 2024 8:00am [facility] Work Phone: Clinical Note 01-22-2024 Note Date & Type Note Facility 01-22-2024 Note [facility] Pap Smear Specimen Adequacy January 22, 2024 6:09pm Comment . Satisfactory for evaluation. Endocervical and/or squamous metaplasticcells (endocervical component) are present. Comment on above: Satisfactory for rui luation. Endocervical and/or squamous metaplasticcells (endocervical component) are present. Clinical Note 01-22-2024 Note Date & Type Note Facility 01-22-2024 Note [facility] Pap Smear Specimen Adequacy January 22, 2024 6:09pm Comment . Satisfactory for evaluation. Endocervical and/or squamous metaplasticcells (endocervical component) are present. Comment on above: Satisfactory for rui luation. Endocervical and/or squamous metaplasticcells (endocervical component) are present. Evaluation note Note Date & Type Note Facility Evaluation note Diagnosis Onset Date Hair loss acute Hot flashes acute Migraine with aura acute Weight gain acute Encounter for routine gyneco logical examination noneactive Encounter for IUD removal no neactive [facility] Work Phone: Evaluation note Note Date & Type Note Facility Evaluation note Diagnosis Onset Date Hair loss acute Hot flashes acute Migraine with aura acute Weight gain acute Encounter for routine gyneco logical examination noneactive Encounter for IUD removal no neactive Depression with anxiety acut e Hair loss acute Establishing care with new d octor, encounter for noneactive Vitamin D deficiency noneact tonny Obesity (BMI 30-39.9) noneac tive [facility] Work Phone: Evaluation note Note Date & Type Note Facility Evaluation note Diagnosis Onset Date Hair loss acute Hot flashes acute Migraine with aura acute Weight gain acute Encounter for routine gyneco logical examination noneactive Encounter for IUD removal no neactive Depression with anxiety acut e Hair loss acute Establishing care with new d octor, encounter for noneactive Vitamin D deficiency noneact tonny Obesity (BMI 30-39.9) noneac tive LGSIL (low grade squamous in traepithelial dysplasia) acute [facility] Work Phone: Reason for referral (narrative) Note Date & Type Note Facility Reason for referral (narrative) No reason for referral information available [facility] Work Phone: Chief Complaint and Reason for Visit 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 Hair loss Hot flashes Migraine with aura Weight gain Encounter for routine gynecological examination Encounter for IUD removal 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 - PPW SENT E ORDERS Reason for Visit Hair loss Hot flashes Migraine with aura Weight gain Encounter for routine gynecological examination Encounter for IUD removal Depression with anxiety Hair loss Establishing care with new doctor, encounter for Vitamin D deficiency Obesity (BMI 30-39.9) 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 - PPW SENT E ORDERS Colposcopy LGSIL Reason for Visit Hair loss Hot flashes Migraine with aura Weight gain Encounter for routine gynecological examination Encounter for IUD removal Depression with anxiety Hair loss Establishing care with new doctor, encounter for Vitamin D deficiency Obesity (BMI 30-39.9) LGSIL (low grade squamous intraepithelial dysplasia) Chief Complaint Admit Date PHARYNGITIS October 08, 2024 3:07pm 3 m fu November 04, 2024 7:54am neuro January 14, 2025 6:13pm 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) January 27, 2025 9:2 4am 3 M FU February 03, 2025 8:0 0am Reason for Visit Admit Date Depression with anxiety November 04 7:54am Immunization due November 04, 2024 7:54am Vitamin D deficiency November 04, 2024 7:54am Obesity (BMI 30-39.9) November 04 7:54am Left ovarian cyst January 27, 2025 9:2 4am LGSIL (low grade squamous intraepithelia l dysplasia) January 27, 2025 9:24am Migraine with aura January 27, 2025 9:2 4am Encounter for routine gynecological exam ination January 27, 2025 9:24am Depression with anxiety February 03, 2025 8:00am Alteration in speech February 03, 2025 8: 00am Numbness and tingling of right hand Manfred h 2024 8:00am Vitamin D deficiency February 03, 2025 8: 00am Obesity (BMI 30-39.9) February 03, 2025 8 :00am Family History No Family History Records Found Relationship Condition Age at Onset Recorded Date/T mireya mother Endometriosis Unknown sister Endometriosis Unknown grandfather Malignant neoplasm of prostate Unknown Cardiac disease Unknown grandmother Cardiac disease Unknown Relationship Condition Age at Onset Recorded Date/T mireya mother Endometriosis Unknown Nonalcoholic fatty liver disease Unknown sister Endometriosis Unknown Bipolar disorder Unknown grandfather Malignant neoplasm of prostate Unknown Cardiac disease Unknown grandmother Cardiac disease Unknown Advance Directives No Advanced Directives Records Found Advance Directive Response Recorded Date/ Time Living Will No November 02, 2 018 3:22pm Power of International Logistics Analyst No November 02, 2018 3:22pm Advance Directive Response Recorded Date/ Time Living Will No November 02, 2 018 3:22pm Do you have a Healthcare Power of International Logistics Analyst? No November 02, 2018 3:22pm Living Will No January 14, 025 10:26pm Do you have a Healthcare Power of International Logistics Analyst? No January 14, 2025 10:26pm Summary Purpose Additional Source Comments Care Teams (unrecognized sec tion and content) Team Status: Active Member Role Status Dates Dr. Doni Salinas MD Family Provider Active Dr. Meli Mims MD Primary Care Provider Active Team Status: Inactive Member Role Status Dates Yahaira Cavazos GUM DIPPER, GUM DIPPER-C Attending Provider Active Dr. Meli Mims MD Primary Care Provider, Referri ng Provider Active Team Status: Inactive Member Role Status Dates Dr. Meli Mims MD Primary Care Provider Active Yahaira Cavazos GUM DIPPER, GUM DIPPER-C Attending Provider, Referring Provider Active Team Status: Inactive Member Role Status Dates Dr. Doni Casey MD Referring Provider Active Dr. Meli Mims MD Primary Care Provider, Attendi ng Provider Active Team Status: Inactive Member Role Status Dates Dr. Meli Mims MD Primary Care Pro vider, Attending Provider, Referring Provider Active Team Status: Inactive Member Role Status Dates Dr. Meli Mims MD Primary Care Provider, Referri ng Provider Active Dr. Keren Alcaraz DO Attending Provider Activ e Team Status: Inactive Member Role Status Dates Dr. Meli Mims MD Primary Care Provider Active Dr. Keren Vande Velde , DO Attending Provider, Refe rring Provider Active Team Status: Active Member Role Status Dates Dr. Meli Mims MD Primary Care Provider Active Team Status: Inactive Member Role Status Dates Dr. Meli Mims MD Primary Care Provider Active Start: October 08, 2024 End: October 08, 2024 Dr. Omar Lozano MD Attending Provider Active Start: October 08, 2024 End: October 08, 2024 Dr. Omar Lozano MD Referring Provider Active Start: October 08, 2024 End: October 08, 2024 Team Status: Inactive Member Role Status Dates Dr. Meli Mims MD Primary Care Provider Active Start: November 04, 2024 End: November 04, 2024 Dr. Meli Mims MD Attending Provider Active Start: November 04, 2024 End: November 04, 2024 Dr. Meli Mims MD Referring Provider Active Start: November 04, 2024 End: November 04, 2024 Team Status: Inactive Member Role Status Dates Dr. Meli Mims MD Primary Care Provider Active Start: January 14, 2025 End: January 15, 2025 Dr. Bebo Woods MD Attending Provider Active S tart: January 14, 2025 End: January 15, 2025 Dr. Bebo Woods MD Emergency Provider Active S tart: January 14, 2025 End: January 15, 2025 Team Status: Inactive Member Role Status Dates Dr. Meli Mims MD Primary Care Provider Active Start: January 27, 2025 End: January 27, 2025 Dr. Meli Mims MD Referring Provider Active Start: January 27, 2025 End: January 27, 2025 Yahaira Cavazos GUM DIPPER, GUM DIPPER-C Attending Provider Active Start: January 27, 2025 End: January 27, 2025 Team Status: Inactive Member Role Status Dates Dr. Meli Mims MD Primary Care Provider Active Start: January 27, 2025 End: January 27, 2025 Yahaira Cavazos GUM DIPPER, GUM DIPPER-C Attending Provider Active Start: January 27, 2025 End: January 27, 2025 Yahaira Cavazos GUM DIPPER, GUM DIPPER-C Referring Provider Active Start: January 27, 2025 End: March 11th, 2025 Team Status: Inactive Member Role Status Dates Dr. Meli Mims MD Primary Care Provider Active Start: February 03, 2025 End: February 03, 2025 Dr. Meli Mims MD Attending Provider Active Start: February 03, 2025 End: February 03, 2025 Dr. Meli Mims MD Referring Provider Active Start: February 03, 2025 End: February 03, 2025 Goals (unrecognized section and content) Goals may be documented in a n alternate sectionGoals may be documented in an alternate sectionGoals may be documented in an alternate sectionGoals may be documented in an alternate section INFORMATION SOURCE (unrecogn ized section and content) DATE CREATED AUTHOR 03/18/2025 [facility] FOR RECORDS PERTAINING TO PATIENTS WHO ARE OR HAVE BEEN ENROLLED IN A CHEMICAL DEPENDENCY/SUBSTANCEABUSE PROGRAM, SOME INFORMATION MAY BE OMITTED. This clinical summary was aggregated from multiple sources. Caution should be exercised in using it in the provision of clinical care. This summary normalizes information from multiple sources, and as a consequence, information in this document may materially change the coding, format and clinical context of patient data. In addition, data may be omitted in some cases. CLINICAL DECISIONS SHOULD BE BASED ON THE PRIMARY CLINICAL RECORDS. [employer] [facility]. provides no warranty or guarantee of the accuracy or completeness of information in this document.
== END 2025-05-05 10:21 | disposition home or self-care (01) ==
PROVIDERS: Emergency Provider Emergency Medicine; PCP Internal Medicine; Visit Provider Emergency Medicine
DX: G43.909 Migraine, unspecified, not intractable, without status migrainosus (principal); R20.2 Paresthesia of skin; F41.9 Anxiety disorder, unspecified; F32.A Depression, unspecified; Z79.899 Other long term (current) drug therapy
CPT/HCPCS: 80048; 83735; 84703; 85025; 96361; 96374; 96375; 96376; 99283; A4216

== ENCOUNTER → 2025-08-25 | Outpatient (CLI) | payer BC, SELFPAY ==
--- NOTE | 2025-08-25 17:52 | US_ITS ---
PROCEDURE: PELVIC W/ TRANSVAGINAL REASON FOR EXAM: LTO CYST TECHNIQUE: Procedure Code: [id number] Modality: US Procedure: PELVIC W/ TRANSVAGINAL COMPARISON: Prior study dated June 09, 2024. FINDINGS: LMP: August 09, 2025. Measurements: Uterus: 8.9 cm x 4.6 cm x 3 cm with a volume of 63.1 mL Endometrial Thickness: 8 mm Right Ovary: 2.5 cm x 1.9 cm x 1.2 cm with a volume of 3.8 mL. Left Ovary: 3.9 cm x 2.3 cm x 1.9 cm with a volume of 8.3 mL. TRANSABDOMINAL: Uterus: Normal size, myometrial echotexture, and contour. Endometrium: Endometrium measures 8 mm. It is trilaminar in appearance. Trace amount of endometrial fluid. Right ovary: Normal size and echotexture. Left ovary: Dominant follicle is seen within the left ovary measuring 1.5 cm x 1.4 cm 1.3 cm. Other: No large pelvic mass identified. Transvaginal sonography was performed to better visualize the endometrium. TRANSVAGINAL: Uterus: Anteverted. Normal contour and myometrial echotexture. Endometrium: Normal echotexture. Trace amount of endometrial fluid. Right ovary: Normal size and echotexture. Left ovary: 1.5 cm x 1.4 cm 1.3 cm dominant follicle. Other adnexal findings: None. Cul-de-sac: No free intraperitoneal fluid identified. Tenderness: No tenderness US/Pelvic w/ Transvaginal IMPRESSION: Dominant follicle is seen in the left ovary measuring 1.5 cm 1.4 cm 1.3 cm. Reading Location: [id number]
== END | disposition home or self-care (01) ==
LOC: US 17:51
PROVIDERS: PCP Internal Medicine; Referring Provider Nurse Practitioner Women's Health; Visit Provider Nurse Practitioner Women's Health
DX: N83.202 Unspecified ovarian cyst, left side (principal)
CPT/HCPCS: 76830; 76856

== ENCOUNTER → 2025-10-02 | Outpatient (CLI) | payer BC, SELFPAY ==
[2025-10-02 12:51] LABS: Hematocrit 43.1 % (37-47); Hemoglobin 14.8 g/dL (12.0-15.0); Immature Granulocytes Count 0.030 X10^3/uL (0.0-0.0); Mean Corp Hgb Conc 34.3 g/dL (32-36); Mean Corpuscular Volume 88.7 fL (81-99); Mean Platelet Vol. 9.7 fl (6.2-12.0); NRBC Flagged by Analyzer 0 % (0-5); Platelet Count 190 K/mm3 (150-450); RBC Distribution Width CV 11.7 % (11.6-14.6); RBC Distribution Width SD 37.3 fl (35.1-43.9); Red Blood Count 4.86 M/mm3 (4.2-5.4); White Blood Count 6.4 K/mm3 (4.4-11.0)
[2025-10-02 13:34] LABS: AST(SGOT) 20 U/L (<=31); Alanine Aminotransfer ALT/SGPT 12 U/L (<=34); Albumin, Serum 4.3 g/dL (3.5-5.0); Alkaline Phosphatase 76 U/L (35-104); Anion Gap 9 (5-15); BUN 10 mg/dL (4-19); BUN/Creat Ratio 12.9 RATIO (10-20); Calcium,Total 9.3 mg/dL (7.6-11.0); Carbon Dioxide 24.7 mmol/L (21.0-32.0); Chloride 105 mmol/L (98-108); Globulin 2.6 g/dL (2.2-4.2); Glucose 88 mg/dL (70-99); Potassium 4.0 mmol/L (3.3-5.1); Vitamin D,25 Hydroxy 26.9 ng/mL (30-100)
== END | disposition home or self-care (01) ==
LOC: LAB 12:13
PROVIDERS: PCP Internal Medicine; Referring Provider Internal Medicine; Visit Provider Internal Medicine
DX: G43.109 Migraine with aura, not intractable, without status migrainosus (principal); F41.8 Other specified anxiety disorders
CPT/HCPCS: 36415; 80053; 82306; 84443; 85025

== ENCOUNTER → 2025-10-23 | Outpatient (CLI) | payer BC, SELFPAY ==
--- NOTE | 2025-10-23 15:43 | MRI_ITS ---
PROCEDURE: LOWER EXT JOINT ONLY (ROUTINE) 10/23/2025 REASON FOR EXAM: SPRAIN OF OTHER SPEC PARTS OF LEFT KNEE, SUBS ENCOUNTER, PAINFUL TECHNIQUE: Procedure Code: [id number] Modality: MR Procedure: LOWER EXT JOINT ONLY (ROUTINE) Multiplanar and multisequence images were obtained without IV contrast administration. COMPARISON: COMPARISON : FINDINGS: The ACL and PCL are intact. The medial and lateral menisci are intact without MR evidence of a definite tear. The MCL and LCL complex appear intact and unremarkable. The patella appears unremarkable. The medial and lateral patellar retinaculum are intact. The visualized distal quadriceps and patellar tendons appear intact and unremarkable. No sizable joint effusion. The bone marrow signal is unremarkable. What appear to be small ganglion cysts are noted anterior to the lateral tibial plateau. MRI/Lower Ext Joint Only (Routine) IMPRESSION: No MR evidence of a meniscal or ligamentous injury. Probable small ganglion cysts anterior to the lateral tibial plateau. Reading Location: [id number]
--- OUTSIDE RECORDS SUMMARY | 2025-10-23 15:55 | XMS RPT_ITS | CCD ---
Author Organization [facility] Care Team Providers Care Wine Manager Name Role Phone Macy TAB MACHINE OPERATOR, TAB MACHINE OPERATOR-C Yahaira Attending Provider Dr. Meli Mims Primary Care Provider Dr. Meli Mims Referring Provider [phone] Dr. Doni Casey Referring Provider Dr. Meli Mims Attending Provider [phone] Dr. Keren Alcaraz Attending Provider Dr. Meli Mims MD Primary Care Provider [phone] Blake HINTON, Dr. Omar Vyas Attending Provider Blake HINTON, Dr. Omar Vyas Referring Provider Dr. Meli Mims MD Attending Provider Dr. Meli Mims MD Referring Provider Chuck HINTON, Dr. Lagunas Attending Provider Dr. Beob Woods MD Emergency Provider Macy TAB MACHINE OPERATOR-CYahaira Attending Provider Macy CADET-CYahaira Referring Provider Prasanna HINTON, Dr. Garrison Primary Care Provider [phone] Dr. Meli Mims MD Referring Provider Dr. Meli Mims MD Attending Provider Hermelindo Bal MD Emergency Provider Hermelindo Bal MD Attending Provider Mara Pisano Attending Provider [phone] Eek, Meli Primary Care Unavailable Prasanna, Meli Attending Unavailable Prasanna, Meli Referring Unavailable Hermelindo Bal Attending Unavailable Eek, Meli Primary Care Unavailable Bebo Woods Attending Unavailable Prasanna, Meli Primary Care Unavailable Prasanna, Meli Primary Care Unavailable Macy TAB MACHINE OPERATOR, Yahaira Attending Unavailable Macy TAB MACHINE OPERATOR, Yahaira Referring Unavailable BlakeOmar Attending Unavailable Blake, Omar K Referring Unavailable Eek, Meli Primary Care Unavailable Milton TAB MACHINE OPERATOR, Yahaira Attending Unavailable Macy TAB MACHINE OPERATOR, Yahaira Referring Unavailable Eek, Meli Primary Care Unavailable Prasanna, Meli Primary Care Unavailable Prasanna, Meli Attending Unavailable Eek, Meli Referring Unavailable Prasanna, Meli Primary Care Unavailable Prasanna, Meli Attending Unavailable Prasanna, Meli Referring Unavailable Prasanna, Meli Primary Care Unavailable Macy TAB MACHINE OPERATOR, Yahaira Attending Unavailable Eek, Meli Referring Unavailable Prasanna, Meli Primary Care Unavailable Eek, Meli Attending Unavailable Eek, Meli Referring Unavailable Mara Farias Attending Unavailable Eek, Meli Referring Unavailable Eek, Meli Primary Care Unavailable Medications Current Medications Medication Drug Class(es) Dates Sig (Normalized) Sig (Original) hydrOXYzine hydrochloride 25 mg oral tablet (3 sources) Antihistamine Start: 08-07-2024 take 1-2 tablets by mouth three times daily as needed for anxiety Hydroxyzine Hcl 25 mg tablet Active 25 mg PO THREE TIMES A DAY as needed for anxiety 90 August 07, 2024 12:00am May take 1-2 tablets as needed for anxiety up to TID Multivitamin preparation (3 sources) Start: 01-22-2024 take 1 tablet by mouth once daily Multivitamin Active 1 TABLET PO DAILY January 22, 2024 1:00am Completed/Discontinued Medications Medication Drug Class(es) Dates Sig (Normalized) Sig (Original) 24 hr buPROPion hydrochloride 150 mg extended release oral tablet (6 sources) Aminoketone Start: 11-15-2020 End: 01-22-2024 take 1 tablet by mouth once daily in the morning Bupropion Hcl (Wellbutrin Xl) 150 mg tablet extended release 24 hr Discontinued 150 mg PO EVERY MORNING November 15, 2020 1:00am January 22, 2024 4:26pm cholecalciferol 0.05 mg oral capsule (5 sources) Vitamin D Start: 02-04-2024 End: 01-14-2025 take 1 capsule by mouth once daily Cholecalciferol (Vitamin D3) 50 mcg (2,000 unit) capsule Discontinued 50 ug PO DAILY February 04, 2024 12:00am January 14, 2025 10:21pm escitalopram 10 mg oral tablet (19 sources) Serotonin Reuptake Inhibitor Start: 01-22-2024 End: 03-09-2025 take 1 tablet by mouth once daily Escitalopram Oxalate 10 mg tablet Discontinued 10 mg PO DAILY November 28, 2024 2:42pm March 09, 2025 8:24am 21 day ethinyl estradiol 0.160819 mg/hr / etonogestrel 0.005 mg/hr vaginal system (6 sources) Progestin, Estrogen Start: 11-02-2018 End: 11-15-2020 Etonogestrel-Ethinyl Estradiol .12-.015MG ring Discontinued 1 U VAGINAL EVERY MONTH November 02, 2018 1:00am November 15, 2020 2:15pm miSOPROStol 0.2 mg oral tablet (6 sources) Prostaglandin E1 Analog Start: 11-16-2020 End: 01-22-2024 take 2 tablets under the tongue every two hours Misoprostol (Cytotec) 200 mcg tablet Discontinued 400 ug SL .COMPLEX November 16, 2020 1:00am January 22, 2024 4:25pm 400 mcg sublingual night before procedure and 2 hours prior.; Start: 11-16-2020 End: 01-22-2024 take 2 tablets under the tongue every two hours Misoprostol (Cytotec) 200 mcg tablet Discontinued 400 MCG SL .COMPLEX November 16, 2020 1:00am January 22, 2024 4:25pm 400 mcg sublingual night before procedure and 2 hours prior.; Multivitamin tablet (3 sources) Start: 01-22-2024 End: 01-14-2025 Multivitamin tablet Discontinued 1 {tbl} PO DAILY January 22, 2024 1:00am January 14, 2025 10:22pm norethindrone 0.35 mg oral tablet (12 sources) Start: 01-22-2024 End: 01-27-2025 take 1 tablet by mouth once daily Norethindrone (Contraceptive) (Cassie) 0.35 mg tablet Discontinued 0.35 mg PO daily April 22, 2024 9:06am January 27, 2025 9:34am propranolol hydrochloride 80 mg oral tablet (12 sources) beta-Adrenergi c Veto Start: 11-15-2020 End: 01-22-2024 Propranolol 80 [...] 2020 2:15pm SUMAtriptan 100 mg oral tablet (6 sources) Serotonin-1b and Serotonin-1d Receptor Agonist Start: 11-02-2018 End: 11-15-2020 Sumatriptan Succinate 100 MG tablet Discontinued 100 mg PO .X1 PRN as needed for Migraine Symptoms November 02, 2018 1:00am November 15, 2020 2:15pm Tirzepatide (Weight Loss) (8 sources) Start: 03-26-2024 End: 04-07-2024 Tirzepatide (Weight Loss) (Zepbound) 2.5 mg/0.5 mL pen injector Discontinued 2.5 mg SC EVERY WEEK 2 March 26, 2024 7:27pm April 22, 2024 12:00am April 07, 2024 8:19am Start: 02-05-2024 End: 03-04-2024 Tirzepatide (Weight Loss) (Z epbound) 2.5 mg/0.5 mL pen injector Discontinued 2.5 mg SC EVERY WEEK 01 16February 05, 2024 12:00am March 03, 2024 12:00am March 04, 2024 12:06am Start: 02-05-2024 End: 03-04-2024 Tirzepatide (Weight Loss) (Z epbound) 2.5 mg/0.5 mL pen injector Discontinued 2.5 MG SC EVERY WEEK 2 February 05, 2024 12:00am March 04, 2024 12:06am Start: 02-05-2024 Tirzepatide (W eight Loss) (Zepbound) 2.5 mg/0.5 mL pen injector Active 2.5 MG SC EVERY WEEK 2 February 05, 2024 12:00am Tirzepatide (Weight Loss) (3 sources) Start: 04-07-2024 End: 05-05-2025 Tirzepatide (Weight Loss) 5 mg/0.5 mL pen injector Discontinued 5 mg SC EVERY WEEK 2 April 07, 2024 8:18am May 05, 2025 7:53am Start: 04-07-2024 Tirzepatide (W eight Loss) 5 mg/0.5 mL pen injector Active 5 mg SC EVERY WEEK 2 April 07, 2024 8:18am Problems Active Problems Problem Classification Problem Date Documented Date Episodic/Chronic Abdominal pain (3 sources) Pain in pelvis; Translations: [Pelvic and perineal pain] 06-17-2024 Episodic Comment on above: resolved Administrative/social admission (2 sources) Persons encountering health services in other specified circumstances; Translations: [Other reasons for seeking consultation] 02-04-2024 Episodic Anxiety disorders (12 sources) Mixed anxiety and depressive disorder; Translations: [Other specified anxiety disorders] 11-15-2020 Chronic Contraceptive and procreative management (3 sources) Encounter for removal of intrauterine contraceptive device; Translations: [Encounter for removal of intrauterine contraceptive device] 01-22-2024 Episodic Headache; including migraine (14 sources) Migraine with aura; Translations: [Migraine with aura, not intractable, without status migrainosus] 01-22-2024 Chronic Comment on above: avoid estrogen Headache; including migraine (1 source) Headache; including migraine; Translations: [Headache, unspecified] Onset: 05-11-2025 Nutritional deficiencies (9 sources) Vitamin D deficiency, unspecified; Translations: [Unspecified vitamin D deficiency] 02-04-2024 Chronic Other nervous system disorders (3 sources) Paresthesia; Translations: [Paresthesia of skin] 01-23-2025 Episodic Other nervous system disorders (3 sources) Speech finding; Translations: [Other speech disturbances] 02-03-2025 Episodic Other nervous system disorders (3 sources) Paresthesia of hand ; Translations: [Anesthesia of skin] 02-03-2025 Episodic Other nervous system disorders (2 sources) Paresthesia of left upper limb; Translations: [Paresthesia of skin] 05-05-2025 Episodic Other nutritional; endocrine; and metabolic disorders (2 sources) Obesity, unspecified; Translations: [Obesity, unspecified] 02-04-2024 Chronic Other nutritional; endocrine; and metabolic disorders (3 sources) Obesity; Translations: [Obesity, unspecified] 08-07-2024 Chronic Other nutritional; endocrine; and metabolic disorders (4 sources) Body mass index 30+ - obesity; Translations: [Obesity, unspecified] 11-04-2024 Chronic Other nutritional; endocrine; and metabolic disorders (3 sources) Weight gain; Translations: [Abnormal weight gain] 01-22-2024 Episodic Other nutritional; endocrine; and metabolic disorders (3 sources) Abnormal weight gain; Translations: [Abnormal weight gain] 01-22-2024 Episodic Other nutritional; endocrine; and metabolic disorders (3 sources) Weight increased; Translations: [Abnormal weight gain] 01-22-2024 Episodic Other skin disorders (6 sources) Loss of hair; Translations: [Nonscarring hair loss, unspecified] 01-22-2024 Episodic Other skin disorders (5 sources) Nonscarring hair loss, unspecified; Translations: [Alopecia, unspecified] 01-22-2024 Episodic Ovarian cyst (7 sources) Cyst of ovary; Translations: [Unspecified ovarian cyst, left side] Onset: 09-14-2025 06-17-2024 Episodic Comment on above: stable. Rpt US 6 mo Residual codes; unclassified (6 sources) Flushing; Translations: [Flushing] 01-22-2024 Episodic Residual codes; unclassified (3 sources) Flushing; Translations: [Flushing] 01-22-2024 Episodic Residual codes; unclassified (9 sources) Abnormal cytology findings; Translations: [Low grade squamous intraepithelial lesion (LGSIL)] 01-29-2024 Episodic Comment on above: colp:benign. rpt pap in 1 yr colp:benign. rpt pap in 1 yr: 01/2025 ASCUS +HPV: repeat 1 year. Past or Other Problems Problem Classification Problem Date Documented Da te Episodic/Chronic Immunizations and screening for infectious disease (2 sources) Immunization due; Translations: [Encounter for immunization] Onset: 11-04-2024 11-04-2024 Episodic Other nervous system disorders (1 source) Other speech disturbances; Translations: [Other speech disturbances] Onset: 03-17-2025 Episodic Other nervous system disorders (1 source) Anesthesia of skin; Translations: [Anesthesia of skin] Onset: 02-03-2025 Episodic Other nervous system disorders (1 source) Paresthesia of skin; Translations: [Paresthesia of skin] Onset: 02-03-2025 Episodic Other screening for suspected conditions (not mental disorders or infectious disease) (1 source) Encounter for screening for malignant neoplasm of cervix; Translations: [Encounter for screening for malignant neoplasm of cervix] Onset: 02-05-2025 Episodic Other upper respiratory infections (1 source) Acute pharyngitis, unspecified; Translations: [Acute pharyngitis, unspecified] Onset: 11-04-2024 Episodic Results Test Name Value Interpretation Reference Range Facility Pelvic w/ Transvaginalon Pelvic w/ Transvaginal [facility] [address] [place] [address] [id number] Pelvic w/ Transvaginal MR#: [id number] Acct: [id number] Name: CAIN SEYMOUR Rep #: [id number] : 1995 F 30 From: Felipe diaz MD PCP: Dr. Meli Mims MD Status: REG CLI Study: Pelvic w/ Transvaginal Date of Exam: 08/25/25 Exam# [id number] Ordering Dr: Yahaira Cavazos TAB MACHINE OPERATOR TAB MACHINE OPERATOR -C PROCEDURE: PELVIC W/ TRANSVAGINAL REASON FOR EXAM: LTO CYST TECHNIQUE: Procedure Code: [id number] Modality: US Procedure: PELVIC W/ TRANSVAGINAL COMPARISON: Prior study dated June 09, 2024. FINDINGS: LMP: August 09, 2025. Measurements: Uterus: 8.9 cm x 4.6 cm x 3 cm with a volume of 63.1 mL Endometrial Thickness: 8 mm Right Ovary: 2.5 cm x 1.9 cm x 1.2 cm with a volume of 3.8 mL. Left Ovary: 3.9 cm x 2.3 cm x 1.9 cm with a volume of 8.3 mL. TRANSABDOMINAL: Uterus: Normal size, myometrial echotexture, and contour. Endometrium: Endometrium measures 8 mm. It is trilaminar in appearance. Trace amount of endometrial fluid. Right ovary: Normal size and echotexture. Left ovary: Dominant follicle is seen within the left ovary measuring 1.5 cm x 1.4 cm 1.3 cm. Other: No large pelvic mass identified. Transvaginal sonography was performed to better visualize the endometrium. TRANSVAGINAL: Uterus: Anteverted. Normal contour and myometrial echotexture. Endometrium: Normal echotexture. Trace amount of endometrial fluid. Right ovary: Normal size and echotexture. Left ovary: 1.5 cm x 1.4 cm 1.3 cm dominant follicle. Other adnexal findings: None. Cul-de-sac: No free intraperitoneal fluid identified. Tenderness: No tenderness US/Pelvic w/ Transvaginal IMPRESSION: Dominant follicle is seen in the left ovary measuring 1.5 cm 1.4 cm 1.3 cm. Reading Location: [facility] CC: RICHARD Cavazos; Dr. Meli Mims MD Gill Tender: Signed Normal [facility] Internal Medicine Office Vis [facility] 05-12-2025 Internal Medicine Office Visit [facility] [address] [place] [address] [place] [address] OFFICE VISIT Date of Service: 05/12/25 MR#: [id number] Acct: [id number] Name: CAIN SEYMOUR Rep #: [id number] : 1995 Provider: RICHARD limon Age/Sex: 30/F Location: [facility] Status: Signed Intake Vital Signs 05/05/25 07:42 05/12/25 11:11 Height 5 ft 4 in 5 ft 7 in Weight: 197 lb BMI 30.8 BP 128/78 H Blood Pressure Location Rt brachial Position Sitting Respiration 16 Pulse 73 Pulse Source Monitor Temp 97.7 F L Temp Source Temporal Pulse Oximetry (%) 98 Oxygen Delivery Method room air Intake Visit Reasons: ACUTE [facility] FU Chief Complaint: [facility] 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 Accompanied by: Self Is patient in pain?: No Allergies No Known Allergies Allergy (Verified 05/12/25 11:05) Medications ???Medication ???Instructions ???Recorded ???Confirmed ???Type hydroxyzine HCl 25 mg tablet 25 mg PO TID PRN anxiety #90 tabs 08/07/24 05/12/25 Rx norethindrone (contraceptive) 0.35 0.35 mg PO QDAY #84 tabs 5 05/12/25 Rx mg tablet (Cassie) escitalopram oxalate 10 mg tablet 10 mg PO DAILY #90 TABLETS 05/12/25 Rx sumatriptan succinate 50 mg tablet See Rx Instructions PO .COMPLEX 05/12/25 05/12/25 Rx #10 tabs Nurse's Note: fu [facility] migraine PFSH Medical History Depression with anxiety Surgical History History of cholecystectomy (01/03/23) S/P cholecystectomy History of foot surgery S/P ACL surgery History of tonsillectomy Family History Mother Age: 66 Endometriosis Fatty liver disease, nonalcoholic Sister Age: 41 Endometriosis Bipolar disorder Grandfather Prostate cancer Heart disease Grandmother Heart disease Social History adopted: No household members: family current occupational status: employed 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 HPI HPI Chief Complaint: [facility] fu Details: CAIN SEYMOUR, is a 30 F who presents to the office today for emergency department visit follow-up for migraine headaches. Patient was seen 6 . Patient states she has been getting headaches 1 to 2/week with this last migraine she had numbness and tingling in her arm and her tongue as well as nausea but no vomiting no fevers or chills. Patient has history of migraines in the past was previously on propranolol and sumatriptan. States she has been off these medications for about 4 years denies any side effects from medication. Believes that stress is potentially a cause of her migraines as she recently bought a house and is busy with work. Denies any headache nausea vomiting numbness or tingling today. ROS Const Constitutional: No body ache, excessive sweating, fatigue, fever(s), frequent falls, headache(s), snoring, weakness, weight change, sleep problems or change in appetite Eyes [...] shortness of breath, dyspnea on exertion, lightheadedness, orthopnea or palpitations Gastro GI: No abdominal pain, change in bowel habits, constipation, cramping, diarrhea, nausea/dyspepsia or vomiting Genitourinary-Female : No burning urination, painful urination, urinary incontinence, urinary frequency, blood in urine, abnormal periods or pelvic pain Musc Musculoskeletal: No abnormal gait, joint pain, back pain, limited range of motion, neck pain, numbness, stiffness, tingling or Arthritis Skin Skin: No dry skin, redness, lesions, itchy eyes, rash or wounds Neuro Neurology: No abnormal gait, abnormal hearing, abnormal speech, dizziness, weakness, frequent falls, headache(s), memory loss, numbness or tingling Psych Psychiatric: No anxiety, No change in appetite, No depression, No memory loss and No Thoughts of harming yourself/Others Endo Endocrine: (more content not included)... Normal [facility] Absolute lymphocyte countOrd ered By: Hermelindo Bal on 05-05-2025 Lymphocytes Auto (Unsp spec) [#/Vol] 1.49 10*3/uL 0.83-4.51 [facility] Absolute neutrophil countOrd ered By: Hermelindo Bal on 05-05-2025 Neutrophils (Bld) [#/Vol] 3.3 10*3/uL 2.0-7.7 [facility] Anion gap in Serum or Plasma Ordered By: Hermelindo Bal on 05-05-2025 Anion gap [Moles/Vol] 9 mmol/L 5-15 [facility] Automated blood erythrocyte countOrdered By: Hermelindo Bal on 05-05-2025 RBC (Bld) [#/Vol] 4.83 10*6/uL Normal 4.2-5.4 [facility] Comment on above: Performed By: #### L 500.2500, L700.6800, L100.0100, L501.5200 #### [facility] [address], [place], [id number] Automated blood hematocrit ( percentage)Ordered By: Hermelindo Bal on 05-05-2025 Hematocrit (Bld) [Volume fraction] 42.7 % Normal 37-47 [facility] Comment on above: Performed By: #### L 500.2500, L700.6800, L100.0100, L501.5200 #### [facility] [address] [facility] [place], [place], [id number] Automated lymphocyte count a s percentage of total leukocytesOrdered By: Hermelindo Bal on 05-05-2025 Lymphocytes/100 WBC Auto (Unsp spec) 27.4 % 19-41 [facility] BUN/creatinine ratioOrdered By: Hermelindo Bal on 05-05-2025 Urea nitrogen/Creatinine [Mass ratio] 17.2 mg/mg 10- [facility] Basic Metabolic Profile (BMP )on 05-05-2025 BUN/CRE 17.2 RATIO Normal - [facility] Comment on above: Performed By: #### L 500.2500, L700.6800, L100.0100, L501.5200 #### [facility] [address] [place], [address] ECRCL 120.02 ml/min Normal 50-250 [facility] Comment on above: Performed By: #### L 500.2500, L700.6800, L100.0100, L501.5200 #### [facility] [address] [place], [address] GAP 9 Normal 5-15 [facility] Comment on above: Performed By: #### L 500.2500, L700.6800, L100.0100, L501.5200 #### [facility] [address] [place], [address] Potassium [Moles/Vol] 4.4 mmol/L Normal 3.3-5.1 [facility] Comment on above: Performed By: #### L 500.2500, L700.6800, L100.0100, L501.5200 #### [facility] [address] [place], [address] Basophil percentageOrdered B y: Hermelindo Bal on 05-05-2025 Basophils/100 WBC (Bld) 0.7 % Normal 0-1 [facility] Comment on above: Performed By: #### L 500.2500, L700.6800, L100.0100, L501.5200 #### [facility] [address] [place], [address] CBC W/Diff, Automatedon 04-19 Absolute Lymph 1.49 X10 3/uL Normal 0.83-4.51 [facility] Comment on above: Performed By: #### L 500.2500, L700.6800, L100.0100, L501.5200 #### [facility] [address] [place], [address] Absolute Neut 3.3 X10 3/uL Normal 2.0-7.7 [facility] Comment on above: Performed By: #### L 500.2500, L700.6800, L100.0100, L501.5200 #### [facility] [address] [place], [address] IG% 0.400 Normal 0.0-0.9 [facility] Comment on above: Result Comment: IG% - Immature Granulocytes (promyelocytes, myelocytes and metamyelocytes) > 1% indicates that a LEFT SHIFT is Present. Performed By: #### L 500.2500, L700.6800, L100.0100, L501.5200 #### [facility] [address] [place], [address] Lymphocytes/100 WBC (Bld) 27.4 % Normal 19-41 [facility] Comment on above: Performed By: #### L 500.2500, L700.6800, L100.0100, L501.5200 #### [facility] [address] [place], [address] Nucleated RBC (Bld) [#/Vol] 0 10*3/uL Normal 0-5 [facility] Comment on above: Performed By: #### L 500.2500, L700.6800, L100.0100, L501.5200 #### [facility] [address] [place], [address] RDW SD 38.4 fl Normal 35.1-43.9 [facility] Comment on above: Performed By: #### L 500.2500, L700.6800, L100.0100, L501.5200 #### [facility] [address] [place], [address] Carbon dioxide, total [Moles /volume] in Central venous bloodOrdered By: Hermelindo Bal on 05-05-2025 CO2 [Moles/Vol] 25.4 mmol/L Normal 21.0-32.0 [facility] Comment on above: Performed By: #### L 500.2500, L700.6800, L100.0100, L501.5200 #### [facility] [address] [place], [address] Chloride assayOrdered By: Rj Bal on 05-05-2025 Chloride [Moles/Vol] 103 mmol/L Normal 98-108 [facility] Comment on above: Performed By: #### L 500.2500, L700.6800, L100.0100, L501.5200 #### [facility] [address] [place], [address] Emergency Department Summary on 05-05-2025 Emergency Department Summary [facility] Medical Records Department [address] [place] [address] Emergency Department Summary 05/05/25 MR#: [id number] Acct: [id number] Name: CAIN SEYMOUR Rep #: [id number] : 1995 30 From: Hermelindo Bal MD PCP: Dr. Meli Mims MD Status:REG ER Location: ED HPI History of Present Illness Chief Complaint: Headache Narrative Narrative: 30-year-old female past medical history of previous migraine headaches presents with headache that began this morning when she woke up. While she has had history of migraines, the last being within the last week, she states she had numbness and tingling of her left arm as well and perhaps some of her tongue. She currently rates her headache as 7 out of 10. It is associated with nausea but no vomiting, no fevers or chills. Last menstrual period 2 weeks ago. She states she is come to the emergency department previously was in for headache but it was for the paresthesias and she received a headache cocktail which proved. Additionally she states that she had an MRI as an outpatient last month which did not show anything acute. This was ordered by her primary care provider. She took Excedrin without relief. [facility] Medical History Depression with anxiety Home Medications ???Medication ???Instructions ???Recorded ???Last Taken ???Type hydroxyzine HCl 25 mg tablet 25 mg PO TID PRN anxiety #90 tabs 08/07/24 Unknown Rx norethindrone (contraceptive) 0.35 0.35 mg PO QDAY #84 tabs 5 Unknown Rx mg tablet (Cassie) escitalopram oxalate 10 mg tablet 10 mg PO DAILY #90 TABLETS Unknown Rx Allergy/AdvReac Type Severity Reaction Status Date / Time No Known Allergies Allergy Verified 05/05/25 07:45 Family History Mother Age: 66 Endometriosis Fatty liver disease, nonalcoholic Sister Age: 41 Endometriosis Bipolar disorder Grandfather Prostate cancer Heart disease Grandmother Heart disease Surgical History History of cholecystectomy (01/03/23) S/P cholecystectomy History of foot surgery S/P ACL surgery History of tonsillectomy Social History adopted: No household members: family current occupational status: employed 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 Positive photophobia. Improved with standing. Mother states patient complained of headache all week, almost every day, but patient denied. EXAM Physical Exam Narrative Exam Narrative: Afebrile. Vital signs noted. Nontoxic-appearing. Cardiovascular examination regular rate and rhythm. Lungs are clear to auscultation bilaterally. Abdomen is soft, nontender, with positive bowel sounds. Neurological examination nonfocal, nonlateralizing. Patellar DTRs equal and symmetric. Neck soft and supple without meningismus. PERRL, EOMI. Const Vital Signs: 05/05/25 07:42 Temperature 98.4 F Temperature Source Oral Pulse Rate 96 Respiratory Rate 16 Blood Pressure 141/89 H Blood Pressure Mean 106 Pulse Ox 98 Oxygen Delivery Method Room Air MDM MDM MDM Narrative Medical decision making narrative: Differential diagnosis includes but not limited to migrainous type headache versus atypical migraine versus stress headache. I have very low suspicion for subarachnoid hemorrhage. I do not feel CT imaging is indicated currently. This was discussed with the patient and her mother and given her recent negative MRI, I have low suspicion for brain mass or tumor. She was given Compazine, Benadryl, and Toradol and serum and baseline laboratories of CBC and BMP were obtained. She was bolused normal saline 1 L intravenously. I reviewed her laboratory work and she has normal white count of 5.4 with hemoglobin 14.8, hematocrit 42.7, platelet count 191. BMP is grossly unremarkable except for glucose 103. Magnesium normal at 1.9, serum negative. Repeat examination at approximately 10 AM does show her improved. She states her headache is now 4 out of 10 down (more content not included)... Normal [facility] Eosinophil percentageOrdered By: Hermelindo Bal on 05-05-2025 Eosinophils/100 WBC (Bld) 1.5 % Normal 0-5 [facility] Comment on above: Performed By: #### L 500.2500, L700.6800, L100.0100, L501.5200 #### [facility] [address] [place], [place], [address] Erythrocyte distribution wid th ratioOrdered By: Hermelindo Bal on 05-05-2025 Erythrocyte distribution width (RBC) [Ratio] 11.9 % Normal 11.6-14.6 [facility] Comment on above: Performed By: #### L 500.2500, L700.6800, L100.0100, L501.5200 #### [facility] [address] [place], [place], [id number] Erythrocyte distribution wid th standard deviationOrdered By: Hermelindo Bal on 05-05-2025 Erythrocyte distribution width (RBC) [Ratio] 38.4 fl 35.1-43.9 [facility] Glomerular filtration rate ( GFR) estimation/1.73 sq m using serum, plasma, or whole bOrdered By: Hermelindo Bal on 05-05-2025 GFR/1.73 sq M.predicted among non-blacks MDRD (S/P/Bld) [Vol rate/Area] 111 mL/min/{1.73_m2} Normal >60 [facility] Comment on above: mL/min/1.73m2 CKD-EP I Creatinine Equation (2020) Result Comment: mL/m in/1.73m2 CKD-EPI Creatinine Equation (2020) Performed By: #### L 500.2500, L700.6800, L100.0100, L501.5200 #### [facility] [address] [facility] [place], [place], [id number] Hemoglobin measurementOrdere d By: Hermelindo Bal on 05-05-2025 Hemoglobin (Bld) [Mass/Vol] 14.8 g/dL Normal 12.0-15.0 [facility] Comment on above: Performed By: #### L 500.2500, L700.6800, L100.0100, L501.5200 #### [facility] [address] [facility] [place], [place], [address] Immature granulocytes/100 WB C Auto (Bld)Ordered By: Hermelindo Bal on 05-05-2025 Immature granulocytes/100 WBC (Bld) 0.400 % 0.0-0.9 [facility] Comment on above: IG% - Immature Granu locytes (promyelocytes, myelocytes and metamyelocytes) > 1% indicates that a LEFT SHIFT is Present. MCV (mean corpuscular volume ) determinationOrdered By: Hermelindo Bal on 05-05-2025 MCV (RBC) [Entitic vol] 88.4 fL Normal 81-99 [facility] Comment on above: Performed By: #### L 500.2500, L700.6800, L100.0100, L501.5200 #### [facility] [address] [place], [address] Magnesiumon 05-05-2025 Magnesium [Mass/Vol] 1.9 mg/dL Normal 1.5-2.2 [facility] Comment on above: Performed By: #### L 500.2500, L700.6800, L100.0100, L501.5200 ####[facility] [address] [place], [address] Magnesium measurement (mass/ volume)Ordered By: Hermelindo Bal on 05-05-2025 Magnesium (Unsp spec) [Mass/Vol] 1.9 mg/dL 1.5-2.2 [facility] Mean corpuscular hemoglobin (MCH) determinationOrdered By: Hermelindo Bal on 05-05-2025 MCH (RBC) [Entitic mass] 30.6 pg Normal 27.0-32.0 [facility] Comment on above: Performed By: #### L 500.2500, L700.6800, L100.0100, L501.5200 #### [facility] [address] [place], [address] Mean corpuscular hemoglobin concentration (MCHC) determinationOrdered By: Hermelindo Bal on 05-05-2025 MCHC (RBC) [Mass/Vol] 34.7 g/dL Normal 32-36 [facility] Comment on above: Performed By: #### L 500.2500, L700.6800, L100.0100, L501.5200 #### [facility] [address] [place], [address] Mean platelet volume determi nationOrdered By: Hermelindo Bal on 05-05-2025 Platelet mean volume (Bld) [Entitic vol] 9.6 fL Normal 6.2-12.0 [facility] Comment on above: Performed By: #### L 500.2500, L700.6800, L100.0100, L501.5200 #### [facility] [address] [place], [address] Monocyte percentageOrdered B y: Hermelindo Bal on 05-05-2025 Monocytes/100 WBC (Bld) 8.7 % Normal 0-10 [facility] Comment on above: Performed By: #### L 500.2500, L700.6800, L100.0100, L501.5200 #### [facility] [address] [place], [address] Neutrophil percentageOrdered By: Hermelindo Bal on 05-05-2025 Neutrophils/100 WBC (Bld) 61.3 % Normal 47-70 [facility] Comment on above: Performed By: #### L 500.2500, L700.6800, L100.0100, L501.5200 #### [facility] [address] [place], [address] Nucleated red blood cell per centageOrdered By: Hermelindo Bal on 05-05-2025 Nucleated RBC/100 WBC (Bld) [Ratio] 0 % 0-5 [facility] Platelet countOrdered By: Rj Bal on 05-05-2025 Platelets (Bld) [#/Vol] 191 10*3/uL Normal 150-450 [facility] Comment on above: Performed By: #### L 500.2500, L700.6800, L100.0100, L501.5200 #### [facility] [address] [place], [address] Potassium measurement (mass/ volume)Ordered By: Hermelindo Bal on 05-05-2025 Potassium (Unsp spec) [Mass/Vol] 4.4 mmol/L 3.3-5.1 [facility] ,Serum,hCG Quali.on 05-05-2025 HCG, SERUM QUAL Negative Normal [facility] Comment on above: Performed By: #### L 500.2500, L700.6800, L100.0100, L501.5200 #### [facility] [address] [place], [address] Serum beta-hCG test, qualita tiveOrdered By: Hermelindo Bal on 05-05-2025 Beta HCG ( test) Ql Negative [facility] Serum creatinine measurement (mass/volume)Ordered By: Hermelindo Bal on 05-05-2025 Creatinine [Mass/Vol] 0.75 mg/dL Normal 0.70-1.20 [facility] Comment on above: Performed By: #### L 500.2500, L700.6800, L100.0100, L501.5200 #### [facility] [address] [place], [address] Serum glucose measurement (m ass/volume)Ordered By: Hermelindo Bal on 05-05-2025 Glucose [Mass/Vol] 103 mg/dL High 70-99 [facility] Comment on above: Performed By: #### L 500.2500, L700.6800, L100.0100, L501.5200 #### [facility] [address] [place], [address] Serum or plasma calcium ashleigh urement (mass/volume)Ordered By: Hermelindo Bal on 05-05-2025 Calcium [Mass/Vol] 9.3 mg/dL Normal 7.6-11.0 [facility] Comment on above: Performed By: #### L 500.2500, L700.6800, L100.0100, L501.5200 #### [facility] [address] [place], [address] Serum or plasma urea nitroge n measurement (mass/volume)Ordered By: Hermelindo Bal on 05-05-2025 Urea nitrogen [Mass/Vol] 13 mg/dL Normal 4-19 [facility] Comment on above: Performed By: #### L 500.2500, L700.6800, L100.0100, L501.5200 #### [facility] [address] [place], [address] Sodium levelOrdered By: Hermelindo Bal on 05-05-2025 Sodium [Moles/Vol] 138 mmol/L Normal 133-145 [facility] Comment on above: Performed By: #### L 500.2500, L700.6800, L100.0100, L501.5200 #### [facility] [address] [place], [address] White blood cell (WBC) count Ordered By: Hermelindo Bal on 05-05-2025 WBC (Bld) [#/Vol] 5.4 10*3/uL Normal 4.4-11.0 [facility] Comment on above: Performed By: #### L 500.2500, L700.6800, L100.0100, L501.5200 #### [facility] [address] [facility] [place], [address] Brain W/WO Contraston 2024 Brain W/WO Contrast [facility] [address] [place] [address] Brain W/WO Contrast MR#: [id number] Acct: [id number] Name: CAIN SEYMOUR Rep #: [id number] : 1995 F 29 From: Alonso English i DO PCP: Dr. Meli Mims MD Status: REG CLI Study: Brain W/WO Contrast Date of Exam: 03/12/25 Exam# [id number] Ordering Dr: Meli Mims MD PROCEDURE: MRI [...] lesions on the FLAIR sequence. [facility]: Dr. Meli Mims MD Gill Tender: Signed Normal [facility] PAP I-G w/rfx hrHPV-Aptimaon 02-05-2025 ADEQ Comment Normal . [facility] Comment on above: Order Comment: Speci men Comment: [id number] Comment: Source.............CervixSpecimen Comment: LMP / Prev Treat...[id number] Comment: No. of containers..01 ThinPrep Vial Result Comment: Sati sfactory for evaluation. Endocervical and/or squamous metaplastic cells (endocervical component) are present. Performed By: #### L 7400.0353 ####[facility] [address] [place], [address] COMM . Normal . [facility] Comment on above: Order Comment: Speci men Comment: [id number] Comment: Source.............CervixSpecimen Comment: LMP / Prev Treat...[id number] Comment: No. of containers..01 ThinPrep Vial Performed By: #### L 7400.0353 ####[facility] [address] [place], [place], [address] COMMENT Comment Normal . [facility] Comment on above: Order Comment: Speci men Comment: [id number] Comment: Source.............CervixSpecimen Comment: LMP / Prev Treat...[id number] Comment: No. of containers..01 ThinPrep Vial Result Comment: This liquid based ThinPrep(R) pap test was screened with the use of an image guided system. Performed By: #### L 7400.0353 ####[facility] [address] [place], [place], [address] DIAG Comment Abnormal . [facility] Comment on above: Order Comment: Speci men Comment: [id number] Comment: Source.............CervixSpecimen Comment: LMP / Prev Treat...[id number] Comment: No. of containers..01 ThinPrep Vial Result Comment: EPIT HELIAL CELL ABNORMALITY. ATYPICAL SQUAMOUS CELLS OF UNDETERMINED SIGNIFICANCE (ASC-US). Performed By: #### L 7400.0353 ####[facility] [address] [facility] [address] [place], [place], [address] HPV APTIMA, HR Positive Abnormal Negative [facility] Comment on above: Order Comment: Speci men Comment: [id number] Comment: Source.............CervixSpecimen Comment: LMP / Prev Treat...[id number] Comment: No. of containers..01 ThinPrep Vial Result Comment: This nucleic acid amplification test detects fourteen high- risk HPV types (16,18,31,33,35,39,45,51,52,56,58,59,66,68) without differentiation. Performed at: [address] [id number] Banquet Supervisor: Candice Ang MD, Phone: [phone] Performed at: [facility] [address] [place] [id number] Banquet Supervisor: Vinod Frost MD, Phone: [phone] Performed at: [facility] [address] [place] [id number] Banquet Supervisor: Candice Ang MD, Phone: [phone] Performed By: #### L 7400.0353 ####[facility] [address] [place], [place], [address] HPV RFLX Comment Normal . [facility] Comment on above: Order Comment: Speci men Comment: [id number] Comment: Source.............CervixSpecimen Comment: LMP / Prev Treat...[id number]=[id number] Comment: No. of containers..01 ThinPrep Vial Result Comment: See below for HPV testing results. Performed By: #### L 7400.0353 ####[facility] [address] [facility] [place], [address] PAPSMR Comment Normal . [facility] Comment on above: Order Comment: Speci men Comment: [id number] Comment: Source.............CervixSpecimen Comment: LMP / Prev Treat...[id number] Comment: No. of containers..01 ThinPrep Vial Result Comment: The Pap smear is a screening test designed to aid in the detection of premalignant and malignant conditions of the uterine cervix. It is not a diagnostic procedure and should not be used as the sole means of detecting cervical cancer. Both false-positive and false-negative reports do occur. Performed By: #### L 7400.0353 ####[facility] [address] [place], [place], [address] Path.prov.IDC-9 Comment Normal . [facility] Comment on above: Order Comment: Speci men Comment: [id number] Comment: Source.............CervixSpecimen Comment: LMP / Prev Treat...[id number] Comment: No. of containers..01 ThinPrep Vial Result Comment: R87. 610 Performed By: #### L 7400.0353 ####[facility] [address] [place], [address] PERFORM Comment Normal . [facility] Comment on above: Order Comment: Speci men Comment: [id number] Comment: Source.............CervixSpecimen Comment: LMP / Prev Treat...[id number] Comment: No. of containers..01 ThinPrep Vial Result Comment: Tuyet Larson, Loading And Unloading Supervisor (ASCP) Performed By: #### L 7400.0353 ####[facility] [address] [place], [place], [address] QC REV Comment Normal . [facility] Comment on above: Order Comment: Speci men Comment: [id number] Comment: Source.............CervixSpecimen Comment: LMP / Prev Treat...[id number] Comment: No. of containers..01 ThinPrep Vial Result Comment: Jalyn Gonzalez Loading And Unloading Supervisor Performed By: #### L 7400.0353 ####[facility] [address] [place], [place], [address] RECOMM Comment Abnormal . [facility] Comment on above: Order Comment: Speci men Comment: [id number] Comment: Source.............CervixSpecimen Comment: LMP / Prev Treat...[id number] Comment: No. of containers..01 ThinPrep Vial Result Comment: Sugg est follow up as clinically appropriate. Performed By: #### L 7400.0353 ####[facility] [address] [place], [place], [address] SIGN Comment Normal . [facility] Comment on above: Order Comment: Speci men Comment: [id number] Comment: Source.............CervixSpecimen Comment: LMP / Prev Treat...[id number] Comment: No. of containers..01 ThinPrep Vial Result Comment: Anni Ang MD, Pathologist Performed By: #### L 7400.0353 ####[facility] [address] [place], [address] Internal Medicine Office Vis iton 02-02-2025 Internal Medicine Office Visit [facility] [address] [place] [address] [place] [address] OFFICE VISIT Date of Service: 02/03/25 MR#: [id number] Acct: [id number] Name: CAIN SEYMOUR Rep #: [id number] : 1995 Provider: Dr. 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 Normal [facility] Cervical or vagninal specime n microscopic examination by cytology stain (reported asOrdered By: Yahaira Cavazos on 01-27-2025 Cytology report Cyto stain Doc (Cvx/Vag) Comment . [facility] Comment on above: The Pap smear is a s creening test designed to aid in thedetection of premalignant and malignant conditions of theuterine cervix. It is not a diagnostic procedure andshould not be used as the sole means of detecting cervicalcancer. Both false-positive and false-negative reports dooccur. Laboratory - CytologyOrdered By: Yahaira Cavazos on 01-27-2025 Coat Operator Insulator Cyto stain Nom (Cvx/Vag) [ID] Comment . [facility] Comment on above: Faviola Larson, Cyto technologist (ASCP) Pathologist Cyto stain Nom (Cvx/Vag) [ID] Comment . [facility] Comment on above: Candice Ang MD, Pathologist Recommended follow-up Cyto stain Nom (Cvx/Vag) Comment High . [facility] Comment on above: Suggest follow up as clinically appropriate. Laboratory - Miscellaneous t estsOrdered By: Yahaira Cavazos on 01-27-2025 Service comment (Unsp spec) [Interp] . . [facility] No Panel InformationOrdered By: Yahaira Cavazos on 01-27-2025 Pap Smear QC Review Comment . [facility] Comment on above: Lionel Rooney totechnologist Pap Smear Specimen Adequacy Comment . [facility] Comment on above: Satisfactory for rui luation. Endocervical and/or squamous metaplasticcells (endocervical component) are present. Pathology report final diagnosis Narrative Comment . [facility] Comment on above: R87.610 Sales Representative Adding Machines Office Visit Reporton 01-27-2025 Sales Representative Adding Machines Office Visit Report [facility] [address], [address] [place] [address] OFFICE VISIT Date of Service: 01/27/25 MR#: [id number] Acct: [id number] Name: CAIN SEYMOUR Rep #: [id number] : 1995 Provider: RICHARD saini Age/Sex: 29/F [place] [facility] Status: Signed Intake Vital Signs 08/07/24 08:07 11/04/24 08:01 01/14/25 21:20 01/27/25 09:26 01/27/25 09:30 Height 5 ft 4 in 5 ft 4 in 5 ft 4 in 5 ft 4 in 5 ft 4 in Weight: 190 lb 4 oz BMI 32.6 BP 110/66 Intake Visit Reasons: Annual (DAY GUARD) Chief Complaint: Annual Boiler Plant 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 Normal [facility] 12 Lead EKGon 01-14-2025 12 Lead EKG [facility] [address] [place] [address] 12 Lead EKG 01/14/25 2229 MR#: [id number] Acct: [id number] Name: CAIN SEYMOUR Rep #: [id number] : 1995 29 From: Matty Burgess MD [...] Normal ECG Confirmed by Matty Burgess ([id number]), primer expeditor and drier SILVA TONG ([id number]) on 01/15/2025 9:33:58 AM Referred By: Confirmed By: Matty Burgess 01/15/25 0934 Date Matty Burgess MD CC: Dr. Meli Mims MD; Dr. Bebo Woods MD Signed Normal [facility] Absolute lymphocyte countOrd ered By: Bebo Woods on 01-14-2025 Lymphocytes Auto (Unsp spec) [#/Vol] 2.66 10*3/uL 0.83-4.51 [facility] Absolute neutrophil countOrd ered By: Bebo Woods on 01-14-2025 Neutrophils (Bld) [#/Vol] 3.7 10*3/uL 2.0-7.7 [facility] Activated partial thrombopla stin time (aPTT) in platelet poor plasma by coagulation aOrdered By: Bebo Woods on 01-14-2025 aPTT Coag (PPP) [Time] 26.1 s 24.1-36.2 [facility] Automated lymphocyte count a s percentage of total leukocytesOrdered By: Beob Woods on 01-14-2025 Lymphocytes/100 WBC Auto (Unsp spec) 37.1 % - [facility] BUN/creatinine ratioOrdered By: Bebo Woods on 01-14-2025 Urea nitrogen/Creatinine [Mass ratio] 15.8 mg/mg 10- [facility] Basic Metabolic Profile (BMP )on 01-14-2025 Anion gap [Moles/Vol] 8 mmol/L Normal 5-15 [facility] Comment on above: Performed By: #### L 500.2500, L100.0100, L300.3900, L300.4310 #### [facility] [address] [place], [address] BUN/CRE 15.8 RATIO Normal 10-20 [facility] Comment on above: Performed By: #### L 500.2500, L100.0100, L300.3900, L300.4310 #### [facility] [address] [place], [address] Calcium [Mass/Vol] 9.2 mg/dL Normal 7.6-11.0 [facility] Comment on above: Performed By: #### L 500.2500, L100.0100, L300.3900, L300.4310 #### [facility] [address] [place], [address] Chloride [Moles/Vol] 107 mmol/L Normal 96-108 [facility] Comment on above: Performed By: #### L 500.2500, L100.0100, L300.3900, L300.4310 #### [facility] [address] [place], [address] CO2 [Moles/Vol] 24.6 mmol/L Normal 22.0-29.0 [facility] Comment on above: Performed By: #### L 500.2500, L100.0100, L300.3900, L300.4310 #### [facility] [address] [place], [address] Creatinine [Mass/Vol] 0.7 mg/dL Normal 0.6-1.0 [facility] Comment on above: Performed By: #### L 500.2500, L100.0100, L300.3900, L300.4310 #### [facility] [address] [place], [address] ECRCL 129.37 ml/min Normal [facility] Comment on above: Performed By: #### L 500.2500, L100.0100, L300.3900, L300.4310 #### [facility] [address] [place], [address] GFR/1.73 sq M.predicted among non-blacks MDRD (S/P/Bld) [Vol rate/Area] 116 mL/min/{1.73_m2} Normal >60 [facility] Comment on above: Result Comment: mL/m in/1.73m2 CKD-EPI Creatinine Equation (2020) Performed By: #### L 500.2500, L100.0100, L300.3900, L300.4310 #### [facility] [address] [place], [address] Glucose [Mass/Vol] 87 mg/dL Normal 70-99 [facility] Comment on above: Performed By: #### L 500.2500, L100.0100, L300.3900, L300.4310 #### [facility] [address] [place], [address] Potassium [Moles/Vol] 4.0 mmol/L Normal 3.3-5.1 [facility] Comment on above: Result Comment: Hemo lysis present, Results??could be affected. ?? Performed By: #### L 500.2500, L100.0100, L300.3900, L300.4310 #### [facility] [address] [place], [address] Sodium [Moles/Vol] 139 mmol/L Normal 133-145 [facility] Comment on above: Performed By: #### L 500.2500, L100.0100, L300.3900, L300.4310 #### [facility] [address] [place], [address] Urea nitrogen [Mass/Vol] 11 mg/dL Normal 4-19 [facility] Comment on above: Performed By: #### L 500.2500, L100.0100, L300.3900, L300.4310 #### [facility] [address] [place], [address] Basophil percentageOrdered B y: Bebo Woods on 01-14-2025 Basophils/100 WBC (Bld) 1.0 % 0-1 [facility] [facility] HCG ( test) Ql Ordered By: Bebo Woods on 01-14-2025 Serum Test, Qualitative Negative [facility] CBC W/Diff, Automatedon 12-21 Absolute Lymph 2.66 X10 3/uL Normal 0.83-4.51 [facility] Comment on above: Performed By: #### L 500.2500, L100.0100, L300.3900, L300.4310 #### [facility] [address] [place], [address] Absolute Neut 3.7 X10 3/uL Normal 2.0-7.7 [facility] Comment on above: Performed By: #### L 500.2500, L100.0100, L300.3900, L300.4310 #### [facility] [address] [place], [address] Basophils/100 WBC (Bld) 1.0 % Normal 0-1 [facility] Comment on above: Performed By: #### L 500.2500, L100.0100, L300.3900, L300.4310 #### [facility] [address] [place], [address] Eosinophils/100 WBC (Bld) 1.1 % Normal 0-5 [facility] Comment on above: Performed By: #### L 500.2500, L100.0100, L300.3900, L300.4310 #### [facility] [address] [place], [address] Erythrocyte distribution width (RBC) [Ratio] 12.2 % Normal 11.6-14.6 [facility] Comment on above: Performed By: #### L 500.2500, L100.0100, L300.3900, L300.4310 #### [facility] [address] [place], [address] Hematocrit (Bld) [Volume fraction] 40.4 % Normal 37-47 [facility] Comment on above: Performed By: #### L 500.2500, L100.0100, L300.3900, L300.4310 #### [facility] [address] [place], [address] Hemoglobin (Bld) [Mass/Vol] 13.7 g/dL Normal 12.0-15.0 [facility] Comment on above: Performed By: #### L 500.2500, L100.0100, L300.3900, L300.4310 #### [facility] [address] [facility] [place], [address] IG% 0.300 Normal 0.0-0.9 [facility] Comment on above: Result Comment: IG% - Immature Granulocytes (promyelocytes, myelocytes and metamyelocytes) > 1% indicates that a LEFT SHIFT is Present. Performed By: #### L 500.2500, L100.0100, L300.3900, L300.4310 #### [facility] [address] [facility] [place], [address] Lymphocytes/100 WBC (Bld) 37.1 % Normal 19-41 [facility] Comment on above: Performed By: #### L 500.2500, L100.0100, L300.3900, L300.4310 #### [facility] [address] [place], [address] MCH (RBC) [Entitic mass] 30.9 pg Normal 27.0-32.0 [facility] Comment on above: Performed By: #### L 500.2500, L100.0100, L300.3900, L300.4310 #### [facility] [address] [place], [address] MCHC (RBC) [Mass/Vol] 33.9 g/dL Normal 32-36 [facility] Comment on above: Performed By: #### L 500.2500, L100.0100, L300.3900, L300.4310 #### [facility] [address] [place], [address] MCV (RBC) [Entitic vol] 91.2 fL Normal 81-99 [facility] Comment on above: Performed By: #### L 500.2500, L100.0100, L300.3900, L300.4310 #### [facility] [address] [place], [address] Monocytes/100 WBC (Bld) 9.6 % Normal 0-[address] [facility] Comment on above: Performed By: #### L 500.2500, L100.0100, L300.3900, L300.4310 #### [facility] [address] [place], [address] Neutrophils/100 WBC (Bld) 50.9 % Normal 47-70 [facility] Comment on above: Performed By: #### L 500.2500, L100.0100, L300.3900, L300.4310 #### [facility] [address] [place], [address] Nucleated RBC (Bld) [#/Vol] 0 10*3/uL Normal 0-5 [facility] Comment on above: Performed By: #### L 500.2500, L100.0100, L300.3900, L300.4310 #### [facility] [address] [place], [address] Platelet mean volume (Bld) [Entitic vol] 10.2 fL Normal 6.2-12.0 [facility] Comment on above: Performed By: #### L 500.2500, L100.0100, L300.3900, L300.4310 #### [facility] [address] [place], [address] Platelets (Bld) [#/Vol] 182 10*3/uL Normal 150-450 [facility] Comment on above: Performed By: #### L 500.2500, L100.0100, L300.3900, L300.4310 #### [facility] [address] [place], [address] RBC (Bld) [#/Vol] 4.43 10*6/uL Normal 4.2-5.4 [facility] Comment on above: Performed By: #### L 500.2500, L100.0100, L300.3900, L300.4310 #### [facility] [address] [place], [address] RDW SD 40.5 fl Normal 35.1-43.9 [facility] Comment on above: Performed By: #### L 500.2500, L100.0100, L300.3900, L300.4310 #### [facility] [address] [place], [address] WBC (Bld) [#/Vol] 7.2 10*3/uL Normal 4.4-11.0 [facility] Comment on above: Performed By: #### L 500.2500, L100.0100, L300.3900, L300.4310 #### [facility] [address] [place], [address] Carbon dioxide measurementOr dered By: Bebo Woods on 01-14-2025 CO2 [Moles/Vol] 24.6 mmol/L 22.0-29.0 [facility] Chest 1 Viewon 01-14-2025 Chest 1 View [facility] [address] [place] [address] Chest 1 View MR#: [id number] Acct: [id number] Name: CAIN SEYMOUR Rep #: [id number] : 1995 F 29 From: Ezio Smith MD PCP: Dr. Meli Mims MD Status: REG ER Study: Chest 1 View Date of Exam: 01/14/25 Exam# [id number] Ordering Dr: Bebo Woods MD PROCEDURE: CHEST 1 VIEW REASON FOR EXAM: Stroke. TECHNIQUE: Frontal view of the chest. COMPARISON: None. FINDINGS: The cardiac and mediastinal contours are normal. The lungs are clear. RAD/Chest 1 View IMPRESSION: NEGATIVE SINGLE VIEW OF THE CHEST. Reading Location: [place] [address] CC: Dr. Meli Mims MD; Dr. Bebo Woods MD Gill Tender: Signed Normal [facility] Chloride measurementOrdered By: Bebo Woods on 01-14-2025 Chloride [Moles/Vol] 107 mmol/L 96-108 [facility] Creatinine [Moles/Vol]Ordere d By: Bebo Woods on 01-14-2025 Creatinine [Mass/Vol] 0.7 mg/dL 0.6-1.0 [facility] Emergency Department Summary on 01-14-2025 Emergency Department Summary [facility] Medical Records Department [address] [place] [address] Emergency Department Summary 01/14/25 MR#: [id number] Acct: [id number] Name: CAIN SEYMOUR Rep #: [id number] : 1995 29 From: Bbeo Woods MD PCP: Dr. Meli Mims MD [...] and trouble writing. 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 5 out of 5 paper stripper strength. Dorsi plantarflexion intact. No drift of either upper or lower extremities. Rapid hand movements normal. Finge (more content not included)... Normal [facility] Eosinophil percentageOrdered By: Bebo Woods on 01-14-2025 Eosinophils/100 WBC (Bld) 1.1 % 0-5 [facility] Erythrocyte distribution wid th ratioOrdered By: Bebo Woods on 01-14-2025 Erythrocyte distribution width (RBC) [Ratio] 12.2 % 11.6-14.6 [facility] Erythrocyte distribution wid th standard deviationOrdered By: Bebo Woods on 01-14-2025 Erythrocyte distribution width (RBC) [Entitic vol] 40.5 fL 35.1-43.9 [facility] Erythrocyte distribution width (RBC) [Ratio] 40.5 fl 35.1-43.9 [facility] Estimation of creatinine kimberly aranceOrdered By: Bebo Woods on 01-14-2025 Estimated Creatinine Clearance Calc 129.37 ml/min [facility] GFR/1.73 sq M.predicted angel g non-blacks MDRD (S/P/Bld) [Vol rate/Area]Ordered By: Bebo Woods on 01-14-2025 Estimated GFR (MDRD) Non-Af Amer 116 >60 [facility] Comment on above: mL/min/1.73m2 CKD-EP I Creatinine Equation (2020) Glomerular filtration rate ( GFR) estimation/1.73 sq m using serum, plasma, or whole bOrdered By: Bebo Woods on 01-14-2025 GFR/1.73 sq M.predicted among non-blacks MDRD (S/P/Bld) [Vol rate/Area] 116 mL/min/{1.73_m2} >60 [facility] Comment on above: mL/min/1.73m2 CKD-EP I Creatinine Equation (2020) Hematocrit Auto (Bld) [Volum e fraction]Ordered By: Bebo Woods on 01-14-2025 Hematocrit (Bld) [Volume fraction] 40.4 % 37-47 [facility] Hemoglobin measurementOrdere d By: Bebo Woods on 01-14-2025 Hemoglobin (Bld) [Mass/Vol] 13.7 g/dL 12.0-15.0 [facility] Immature granulocytes/100 WB C Auto (Bld)Ordered By: Bebo Woods on 01-14-2025 Immature granulocytes/100 WBC (Bld) 0.300 % 0.0-0.9 [facility] Comment on above: IG% - Immature Granu locytes (promyelocytes, myelocytes and metamyelocytes) > 1% indicates that a LEFT SHIFT is Present. International normalized rat io (INR) calculationOrdered By: Bebo Woods on 01-14-2025 INR Coag (Bld) [Relative time] 0.9 {INR} [facility] Lymphocytes Auto (Unsp spec) [#/Vol]Ordered By: Bebo Woods on 01-14-2025 Lymphocytes (Bld) [#/Vol] 2.66 10*3/uL 0.83-4.5 1 [facility] Lymphocytes/100 WBC Auto (Un sp spec)Ordered By: Bebo Woods on 01-14-2025 Lymphocytes/100 WBC (Bld) 37.1 % 19-41 [facility] MCV (mean corpuscular volume ) determinationOrdered By: Bebo Woods on 01-14-2025 MCV (RBC) [Entitic vol] 91.2 fL 81-[address] [facility] Mean corpuscular hemoglobin (MCH) determinationOrdered By: Bebo Woods on 01-14-2025 MCH (RBC) [Entitic mass] 30.9 pg 27.0-32.0 [facility] Mean corpuscular hemoglobin concentration (MCHC) determinationOrdered By: Bebo Woods on 01-14-2025 MCHC (RBC) [Mass/Vol] 33.9 g/dL 32-36 [facility] Mean platelet volume determi nationOrdered By: Bebo Woods on 01-14-2025 Platelet mean volume (Bld) [Entitic vol] 10.2 fL 6.2-12.0 [facility] Monocyte percentageOrdered B y: Bebo Woods on 01-14-2025 Monocytes/100 WBC (Bld) 9.6 % 0-[address] [facility] Neutrophil percentageOrdered By: Bebo Woods on 01-14-2025 Neutrophils/100 WBC (Bld) 50.9 % 47-70 [facility] Nucleated red blood cell per centageOrdered By: Bebo Woods on 01-14-2025 Nucleated RBC/100 WBC (Bld) [Ratio] 0 % 0-5 [facility] Partial Thromboplast Timeon 01-14-2025 aPTT Coag (Bld) [Time] 26.1 s Normal 24.1-36.2 [facility] Comment on above: Performed By: #### L 500.2500, L100.0100, L300.3900, L300.4310 #### [facility] [address] [place], [address] Platelet countOrdered By: Alec Woods on 01-14-2025 Platelets (Bld) [#/Vol] 182 10*3/uL 150-450 [facility] ,Serum,hCG Quali.on 01-14-2025 HCG, SERUM QUAL Negative Normal [facility] Comment on above: Performed By: #### L 700.6800 ####[facility] [id number] [place], [address] Prothrombin Time w/INRon INR Coag (PPP) [Relative time] 0.9 {INR} Normal [facility] Comment on above: Performed By: #### L 500.2500, L100.0100, L300.3900, L300.4310 #### [facility] [address] [place], [address] PT Coag (PPP) [Time] 12.6 s Normal 11.7-14.9 [facility] Comment on above: Performed By: #### L 500.2500, L100.0100, L300.3900, L300.4310 #### [facility] [address] [place], [address] Prothrombin timeOrdered By: Bebo Woods on 01-14-2025 PT Coag (PPP) [Time] 12.6 s 11.7-14.9 [facility] RBC Auto (Bld) [#/Vol]Ordere d By: Bebo Woods on 01-14-2025 RBC (Bld) [#/Vol] 4.43 10*6/uL 4.2-5.4 [facility] STROKE Brain/Head without Co nton 01-14-2025 STROKE Brain/Head without Cont [facility] [address] [place] [address] STROKE Brain/Head without Cont MR#: [id number] Acct: [id number] Name: CAIN SEYMOUR Rep #: [id number] : 1995 F 29 From: Ezio Smith MD PCP: Dr. Meli Mims MD Status: REG ER Study: STROKE Brain/Head without Cont Date of Exam: 0 01/14/25 Exam# [id number] Ordering Dr: Bebo Woods MD PROCEDURE: STROKE [...] use of iterative reconstruction technique). Reading Location: [id number] CC: Dr. Meli Mims MD; Dr. Bebo Woods MD Gill Tender: Signed Normal [facility] STROKE CTA Head AND Neck W/C onon 01-14-2025 STROKE CTA Head AND Neck W/Con [facility] [address] [place] [address] STROKE CTA Head AND Neck W/Con MR#: [id number] Acct: [id number] Name: CAIN SEYMOUR Rep #: [id number] : 1995 F 29 From: Ezio Smith MD PCP: Dr. Meli Mims MD Status: REG ER Study: STROKE CTA Head AND Neck W/Con Date of Exam: 0 01/14/25 Exam# [id number] Ordering Dr: Bebo Woods MD PROCEDURE: STROKE [...] use of iterative reconstruction technique). Reading Location: [place] [address] CC: Dr. Meli Mims MD; Dr. Bebo Woods MD Gill Tender: Signed Normal [facility] Serum beta-hCG test, qualita tiveOrdered By: Bebo Woods on 01-14-2025 Beta HCG ( test) Ql Negative [facility] Serum glucose measurement (m ass/volume)Ordered By: Bebo Woods on 01-14-2025 Glucose [Mass/Vol] 87 mg/dL 70-99 [facility] Serum or plasma anion gap de termination (moles/volume)Ordered By: Bebo Woods on 01-14-2025 Anion gap [Moles/Vol] 8 mmol/L 5-15 [facility] Serum or plasma calcium ashleigh urement (mass/volume)Ordered By: Bebo Woods on 01-14-2025 Calcium [Mass/Vol] 9.2 mg/dL 7.6-11.0 [facility] Serum or plasma creatinine m easurement (moles/volume)Ordered By: Bebo Woods on 01-14-2025 Creatinine [Moles/Vol] 0.7 mg/dL 0.6-1.0 [facility] Serum or plasma potassium me asurementOrdered By: Bebo Woods on 01-14-2025 Potassium [Moles/Vol] 4.0 mmol/L 3.3-5.1 [facility] Comment on above: Hemolysis present, R esults could be affected. Serum or plasma sodium measu rement (moles/volume)Ordered By: Bebo Woods on 01-14-2025 Sodium [Moles/Vol] 139 mmol/L 133-145 [facility] Serum or plasma urea nitroge n measurement (mass/volume)Ordered By: Bebo Woods on 01-14-2025 Urea nitrogen [Mass/Vol] 11 mg/dL 4-19 [facility] White blood cell (WBC) count Ordered By: Bebo Woods on 01-14-2025 WBC (Bld) [#/Vol] 7.2 10*3/uL 4.4-11.0 [facility] aPTT Coag (PPP) [Time]Ordere d By: Bebo Woods on 01-14-2025 aPTT Coag (Bld) [Time] 26.1 s 24.1-36.2 [facility] Internal Medicine Office Vis iton 11-03-2024 Internal Medicine Office Visit [facility] [address] [address] OFFICE VISIT Date of Service: 11/04/24 MR#: [id number] Acct: [id number] Name: CAIN SEYMOUR Rep #: [id number] : 1995 Provider: Dr. 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 Normal [facility] Culture, Throaton 10-11-2024 CUT Mixed normal zack. No Haemophilus, Streptococcus pneumoniae, beta-hemolytic Streptococcus or Staphylococcus aureus isolated. Normal [facility] Comment on above: Performed By: #### M 100.1000 ####[facility] [id number] [place], [address] Absolute lymphocyte countOrd ered By: Meli Mims on 02-05-2024 Lymphocytes Auto (Unsp spec) [#/Vol] 1.91 10*3/uL 0.83-4.51 [facility] Automated lymphocyte count a s percentage of total leukocytesOrdered By: Meli Mims on 02-05-2024 Lymphocytes/100 WBC Auto (Unsp spec) 34.0 % 19-41 [facility] Basophil percentageOrdered B y: Meli Mims on 02-05-2024 Basophils/100 WBC (Bld) 0.5 % 0-1 [facility] Bilirubin [Mass/Vol] 0.60 mg/dL 0.20-1.00 [facility] Comment on above: For patients on eltr ombopag therapy, use of Dimension Alexander TBIL is not recommended. Chloride [Moles/Vol] 110 mmol/L 98-107 [facility] Cholesterol [Mass/Vol] 161 mg/dL <200 [facility] Comment on above: <200 mg/dL Desirable 200-240 mg/dL Borderline >240 mg/dL High Risk Eosinophils/100 WBC (Bld) 0.9 % 0-5 [facility] Glucose [Mass/Vol] 92 mg/dL 74-106 [facility] Hemoglobin (Bld) [Mass/Vol] 15.1 g/dL 12.0-15.0 [facility] Monocytes/100 WBC (Bld) 7.7 % 0-[address] [facility] Neutrophils (Bld) [#/Vol] 3.2 10*3/uL 2.0-7.7 [facility] Neutrophils/100 WBC (Bld) 56.7 % 47-70 [facility] Potassium [Moles/Vol] 3.8 mmol/L 3.5-5.1 [facility] Protein [Mass/Vol] 7.0 g/dL 6.4-8.2 [facility] Sodium [Moles/Vol] 140 mmol/L 136-145 [facility] Triglyceride [Mass/Vol] 89 mg/dL <[address] [facility] Comment on above: The drugs N-Acetylcy steine and Metamizole may falsely depress this assay.Serum Triglycerides Reference Interval Normal <150 mg/dL Borderline high 150 - 199 mg/dL High 200 - 499 mg/dL Very High > or = 500 mg/dL WBC (Bld) [#/Vol] 5.6 10*3/uL 4.4-11.0 [facility] Determination of erythrocyte mean corpuscular volume (MCV)Ordered By: Meli Mims on 02-05-2024 MCV (RBC) [Entitic vol] 89.6 fL 81-[address] [facility] Erythrocyte distribution wid th ratioOrdered By: Mlei Mims on 02-05-2024 Erythrocyte distribution width (RBC) [Ratio] 11.9 % 11.6-14.6 [facility] Erythrocyte distribution wid th standard deviationOrdered By: Meli Mims on 02-05-2024 Erythrocyte distribution width (RBC) [Entitic vol] 38.7 fL 35.1-43.9 [facility] Hematocrit Auto (Bld) [Volum e fraction]Ordered By: Meli Mims on 02-05-2024 Hematocrit (Bld) [Volume fraction] 43.8 % 37-47 [facility] Immature granulocytes/100 WB C Auto (Bld)Ordered By: Meli Mims on 02-05-2024 Immature granulocytes/100 WBC (Bld) 0.200 % 0.0-0.9 [facility] Comment on above: IG% - Immature Granu locytes (promyelocytes, myelocytes and metamyelocytes) > 1% indicates that a LEFT SHIFT is Present. Laboratory - Chemistry and C hemistry - challengeOrdered By: Meli Mims on 02-05-2024 Albumin/Globulin [Mass ratio] 1.1 {ratio} 0.9-2.4 [facility] ALP [Catalytic activity/Vol] 73 U/L 45-117 [facility] ALT [Catalytic activity/Vol] 15 U/L 13-56 [facility] Cholesterol in HDL [Mass/Vol] 59 mg/dL >40 [facility] Comment on above: The drugs N-Acetylcy steine and Metamizole may falsely depress this assay. Reference Range HDL <40 mg/dL Low HDL Cholesterol HDL >or= 60 mg/dL High HDL Cholesterol Cholesterol in LDL [Mass/Vol] 84 mg/dL 0-130 [facility] CO2 [Moles/Vol] 26.0 mmol/L 21.0-32.0 [facility] Globulin (S) [Mass/Vol] 3.3 g/dL 2.2-4.[address] [facility] Urea nitrogen/Creatinine [Mass ratio] 14.0 mg/mg 10-20 [facility] - Hematology and Cell countsOrdered By: Meli Mims on 02-05-2024 MCH (RBC) [Entitic mass] 30.9 pg 27.0-32.0 [facility] MCHC (RBC) [Mass/Vol] 34.5 g/dL 32-36 [facility] Nucleated RBC/100 WBC (Bld) [Ratio] 0 % 0-5 [facility] Platelet mean volume (Bld) [Entitic vol] 9.8 fL 6.2-12.0 [facility] Platelets (Bld) [#/Vol] 206 10*3/uL 150-450 [facility] No Panel InformationOrdered By: Meli Mims on 02-05-2024 Estimated GFR (MDRD) Amer 112 mL/min >60 [facility] Comment on above: GFR Calc Estimated GFR (MDRD) Non-Af Amer 93 mL/min >60 [facility] Comment on above: Non- GFR Calc VLDL Cholesterol 18 mg/dL 5-40 [facility] RBC Auto (Bld) [#/Vol]Ordere d By: Meli Mims on 02-05-2024 RBC (Bld) [#/Vol] 4.89 10*6/uL 4.2-5.4 [facility] Serum or plasma calcium ashleigh urement (mass/volume)Ordered By: Meli Mims on 02-05-2024 Calcium [Mass/Vol] 8.9 mg/dL 8.5-10.1 [facility] Serum or plasma creatinine m easurement (mass/volume)Ordered By: Meli Mims on 02-05-2024 Creatinine [Mass/Vol] 0.79 mg/dL 0.55-1.02 [facility] Comment on above: The validity of the calculated GFR & GFRAA in patients over 70 years has not been determined. Clinical correlation is essential. Serum or plasma urea nitroge n measurement (mass/volume)Ordered By: Meli Mims on 02-05-2024 Urea nitrogen [Mass/Vol] 11 mg/dL 7-18 [facility] Thin prep Papanicolaou smear with manual screeningOrdered By: Meli Mims on 02-05-2024 Thin prep Papanicolaou smear with manual screening 3.7 g/dL 3.2-5.0 [facility] Thin prep Papanicolaou smear with manual screening 15 U/L 15-37 [facility] Thin prep Papanicolaou smear with manual screening 4 5-15 [facility] Cervical or vagninal specime n microscopic examination by cytology stain (reported asOrdered By: Yahaira Cavazos on 01-22-2024 Cytology report Cyto stain Doc (Cvx/Vag) Comment . [facility] Comment on above: The Pap smear [...] rRNA LULU+probe Ql (Unsp spec) Negative Negative [facility] Laboratory - CytologyOrdered By: Yahaira Cavazos on 01-22-2024 Coat Operator Insulator Cyto stain Nom (Cvx/Vag) [ID] Comment . [facility] Comment on above: Miguel Simon, Loading And Unloading Supervisor (ASCP) Pathologist Cyto stain Nom (Cvx/Vag) [ID] Comment . [facility] Comment on above: Candice Ang MD, Pathologist Recommended follow-up Cyto stain Nom (Cvx/Vag) Comment . [facility] Comment on above: Suggest follow up as clinically appropriate. Laboratory - Microbiology an d Antimicrobial susceptibilityOrdered By: Yahaira Cavazos on 01-22-2024 N. gonorrhoeae DNA LULU+probe Ql (Unsp spec) Negative Negative [facility] Comment on above: Performed at: [address] [id number] Director: Candice Ang MD, Phone: [phone] Laboratory - Miscellaneous t estsOrdered By: Yahaira Cavazos on 01-22-2024 Service comment (Unsp spec) [Interp] . . [facility] No Panel InformationOrdered By: Yahaira Cavazos on 01-22-2024 Human Papillomavirus Screen Comment . [facility] Comment on above: The HPV DNA reflex c joshua were not met with this specimenresult therefore, no HPV testing was performed.Performed at: [facility] [address] [id number] Director: Candice Ang MD, Phone: [phone] Pathology report final diagnosis Narrative Comment . [facility] Comment on above: R87.612 Vitamin D 25-Hydroxy 21.7 ng/mL [facility] Comment on above: Vitamin D 25(OH) Sta tus Range Deficiency <20 ng/mL (50nmol/L) Insufficiency 20 - 30 ng/mL (50 - 75 nmol/L) Sufficiency 30 - 100 ng/mL (75 - 250 nmol/L) Toxicity >100 ng/mL (>250 nmol/L) No Panel Informationon 01-21 POC Trichomonas (Rapid) Negative [facility] Serum or plasma thyroid stim ulating hormone (TSH) measurement (units/volume)Ordered By: Yahaira Cavazos on 01-22-2024 TSH Qn 1.61 uIU/mL 0.358-3.74 [facility] Serum or plasma thyroperoxid ase antibody assay (units/volume)Ordered By: Yahaira Macy on 01-22-2024 TPO Ab Qn 18 [IU]/mL 0-34 [facility] Comment on above: Performed at: [address] Director: Jorge Luis Brink PhD, Phone: [id number] Thin prep Papanicolaou smear with manual screeningOrdered By: Yahaira Cavazos on 01-22-2024 Thin prep Papanicolaou smear with manual screening Comment . [facility] Comment on above: EPITHELIAL CELL ABNO RMALITY.LOW GRADE SQUAMOUS INTRAEPITHELIAL LESION (LSIL). This liquid based Th inPrep(R) pap test was screened withthe use of an image guided system. Thin prep Papanicolaou smear with manual screening 0.85 ng/dL 0.76-1.46 [facility] Vital Signs Date Time Vital Sign Value Performing Clinician Simoni víctor 05-12-2025 11:040 Body height 170.[address] Meli Mims MD Work Phone: [facility] 05-12-2025 11:040 Body mass index (BMI) [Ratio] 30.8 kg/m2 Dr. Meli Mims MD Work Phone: [facility] 05-12-2025 11:11040 Body temperature 97.7 [degF] Dr. Meli Mims MD Work Phone: [facility] 05-12-2025 11:11-0400 Body weight 89.[address] Meli Mims MD Work Phone: [facility] 05-12-2025 11:11-0400 Diastolic blood pressure 78 mm[Hg] Dr. Meli Mims MD Work Phone: [facility] 05-12-2025 11:11-0400 Heart rate 73 /min Dr. Meli Mims MD Work Phone: [facility] 05-12-2025 11:11-0400 Respiratory rate 16 /min Dr. Meli Mims MD Work Phone: [facility] 05-12-2025 11:11-0400 SaO2% (BldA) [Mass fraction] 98 % Dr. Meli Mims MD Work Phone: [facility] 05-12-2025 11:11-0400 Systolic blood pressure 128 mm[Hg] Dr. Meli Mims MD Work Phone: [facility] 05-05-2025 10:20-0400 Body temperature 98.4 [degF] Dr. Meli Mims MD Work Phone: [facility] 05-05-2025 10:20-0400 Diastolic blood pressure 89 mm[Hg] Dr. Meli Mims MD Work Phone: [facility] 05-05-2025 10:20-0400 Heart rate 73 /min Dr. Meli Mims MD Work Phone: [facility] 05-05-2025 10:20-0400 Respiratory rate 16 /min Dr. Meli Mims MD Work Phone: [facility] 05-05-2025 10:20-0400 SaO2% (BldA) [Mass fraction] 98 % Dr. Meli Mims MD Work Phone: [facility] 05-05-2025 10:20-0400 Systolic blood pressure 141 mm[Hg] Dr. Meli Mims MD Work Phone: [facility] 05-05-2025 07:42-0400 Body height 162.[address] Meli Mims MD Work Phone: [facility] 05-05-2025 07:42-0400 Body mass index (BMI) [Ratio] 33.9 kg/m2 Dr. Meli Mims MD Work Phone: [facility] 05-05-2025 07:42-0400 Body weight 89.[address] Meli Mims MD Work Phone: [facility] 02-03-2025 08:05-0400 Body height 162.[address] Meli Mims MD Work Phone: [facility] 02-03-2025 08:05-0400 Body mass index (BMI) [Ratio] 32.2 kg/m2 Dr. Meli Mims MD Work Phone: [facility] 02-03-2025 08:05-0400 Body temperature 97.9 [degF] Dr. Meli Mims MD Work Phone: [facility] 02-03-2025 08:05-0400 Body weight 85.[address] Meli Mims MD Work Phone: [facility] 02-03-2025 08:05-0400 Diastolic blood pressure 70 mm[Hg] Dr. eMli Mims MD Work Phone: [facility] 02-03-2025 08:05-0400 Heart rate 75 /min Dr. Meli Mims MD Work Phone: [facility] 02-03-2025 08:05-0400 Respiratory rate 16 /min Dr. Meli Mims MD Work Phone: [facility] 02-03-2025 08:05-0400 SaO2% (BldA) [Mass fraction] 97 % Dr. Meli Mims MD Work Phone: [facility] 02-03-2025 08:05-0400 Systolic blood pressure 110 mm[Hg] Dr. Meli Mims MD Work Phone: [facility] 01-27-2025 09:26-0400 Body mass index (BMI) [Ratio] 32.6 kg/m2 Dr. Meli Mims MD Work Phone: [facility] 01-27-2025 09:26-0400 Body weight 86.[address] Meli Mims MD Work Phone: [facility] 01-27-2025 09:26-0400 Diastolic blood pressure 66 mm[Hg] Dr. Meli Mims MD Work Phone: [facility] 01-27-2025 09:26-0400 Systolic blood pressure 110 mm[Hg] Dr. Meli Mims MD Work Phone: [facility] 01-15-2025 00:00-0500 Body temperature 97.4 [degF] Dr. Meli Mims MD Work Phone: [facility] 01-15-2025 00:00-0500 Diastolic blood pressure 72 mm[Hg] Dr. Meli Mims MD Work Phone: [facility] 01-15-2025 00:00-0500 Heart rate 67 /min Dr. Meli Mims MD Work Phone: [facility] 01-15-2025 00:00-0500 Respiratory rate 18 /min Dr. Meli Mims MD Work Phone: [facility] 01-15-2025 00:00-0500 SaO2% (BldA) [Mass fraction] 98 % Dr. Meli Mims MD Work Phone: [facility] 01-15-2025 00:00-0500 Systolic blood pressure 119 mm[Hg] Dr. Meli Mims MD Work Phone: [facility] 01-14-2025 21:20-0500 Body mass index (BMI) [Ratio] 33.7 kg/m2 Dr. Meli Mims MD Work Phone: [facility] 01-14-2025 21:20-0500 Body weight 89.[address] Meli Mims MD Work Phone: [facility] 11-04-2024 08:01-0500 Body mass index (BMI) [Ratio] 32.4 kg/m2 Dr. Meli Mims MD Work Phone: [facility] 11-04-2024 08:01-0500 Body temperature 97.2 [degF] Dr. Meli Mims MD Work Phone: [facility] 11-04-2024 08:01-0500 Body weight 85.[address] Meli Mims MD Work Phone: [facility] 11-04-2024 08:01-0500 Diastolic blood pressure 70 mm[Hg] Dr. Meli Mims MD Work Phone: [facility] 11-04-2024 08:01-0500 Heart rate 92 /min Dr. Meli Mims MD Work Phone: [facility] 11-04-2024 08:01-0500 Respiratory rate 16 /min Dr. Meli Mims MD Work Phone: [facility] 11-04-2024 08:01-0500 SaO2% (BldA) [Mass fraction] 98 % Dr. Meli Mims MD Work Phone: [facility] 11-04-2024 08:01-0500 Systolic blood pressure 112 mm[Hg] Dr. Meli Mims MD Work Phone: [facility] 03-03-2024 14:16-0400 Body height 162.[address] Meli Mims Work Phone: [facility] 03-03-2024 14:15-0400 Body mass index (BMI) [Ratio] 35.4 kg/m2 Dr. Meli Mims Work Phone: [facility] 03-03-2024 14:15-0400 Body weight 93.[address] Meli Mims Work Phone: [facility] 03-03-2024 14:15-0400 Diastolic blood pressure 81 mm[Hg] Dr. Meli Mims Work Phone: [facility] 03-03-2024 14:15-0400 Systolic blood pressure 125 mm[Hg] Dr. Meli Mims Work Phone: [facility] 02-04-2024 07:44-0400 Body height 162.[address] Meli Mims Work Phone: [facility] 02-04-2024 07:44-0400 Body mass index (BMI) [Ratio] 35.5 kg/m2 Dr. Meli Mims Work Phone: [facility] 02-04-2024 07:44-0400 Body temperature 97.9 [degF] Dr. Meli Mims Work Phone: [facility] 02-04-2024 07:44-0400 Body weight 93.[address] Meli Mims Work Phone: [facility] 02-04-2024 07:44-0400 Diastolic blood pressure 80 mm[Hg] Dr. Meli Mims Work Phone: [facility] 02-04-2024 07:44-0400 Heart rate 98 /min Dr. Meli Mims Work Phone: [facility] 02-04-2024 07:44-0400 Respiratory rate 14 /min Dr. Meli Mims Work Phone: [facility] 02-04-2024 07:44-0400 SaO2% (BldA) [Mass fraction] 98 % Dr. Meli Mims Work Phone: [facility] 02-04-2024 07:44-0400 Systolic blood pressure 114 mm[Hg] Dr. Meli Mims Work Phone: [facility] 01-22-2024 15:26-0500 Body height 162.[address] Meli Mims Work Phone: [facility] 01-22-2024 15:16-0500 Body mass index (BMI) [Ratio] 35.5 kg/m2 Dr. Meli Mims Work Phone: [facility] 01-22-2024 15:16-0500 Body weight [address] Meli Mims Work Phone: [facility] 01-22-2024 15:16-0500 Diastolic blood pressure 84 mm[Hg] Dr. Meli Mims Work Phone: [facility] 01-22-2024 15:16-0500 Systolic blood pressure 132 mm[Hg] Dr. Meli Mims Work Phone: [facility] Encounters Encounter Date Encounter Type Care Provider Facility Start: 08-25-2025 End: 08-25-2025 ambulatory Yahaira Cavazos NP Facility:[facility] Start: 05-12-2025 End: 05-12-2025 Patient encounter procedure Mara Farias TAB MACHINE OPERATOR-C -[facility] Work Phone: Start: 05-12-2025 End: 05-12-[address] Meli Mims MD Work Phone: [facility] Work Phone: Start: 05-05-2025 ambulatory Meli Mims [place] [place]: 05-05-2025 End: 05-05-2025 Emergency department patient visit Dr. Meli Mims MD Work Phone: -Emergency Department Work Phone: Start: 03-12-2025 End: 03-12-[address] Meli Mims MD -[facility] Work Phone: Start: 03-12-2025 End: 03-12-2025 ambulatory Melifeng Vasquezlay Facility:[facility] Start: 02-03-2025 End: 02-03-[address] Meli Mims MD -[facility] Work Phone: Start: 02-03-2025 End: 02-03-2025 ambulatory Meli Mims Facility:[facility] Start: 01-27-2025 End: 01-27-[address] Meli Mims MD Work Phone: [facility] Work Phone: Start: 01-27-2025 End: 01-27-2025 Patient encounter procedure Yahaira RAMOS -Laboratory, Specimen Work Phone: Start: 01-27-2025 End: 01-27-2025 Patient encounter procedure Yahaira Cavazos NP-C -[facility] Work Phone: Start: 01-27-2025 End: 01-27-2025 Patient encounter status Yahaira Cavazos TAB MACHINE OPERATOR-C [facility] Start: 01-27-2025 End: 01-27-2025 ambulatory Meli [place]quezlay [place] [place]: 01-27-2025 End: 01-27-2025 ambulatory Meli Prasanna Facility:[facility] Start: 01-14-2025 End: 01-15-2025 Emergency department patient visit Dr. Bebo Woods MD -Emergency Department Work Phone: Start: 11-04-2024 End: 11-04-[address] Meli Mims MD -[facility] Work Phone: Start: 11-04-2024 End: 11-04-2024 ambulatory Meli Mims Facility:[facility] Start: 10-08-2024 End: 10-08-[address] Omar Lozano MD -Laboratory, Specimen Work Phone: Start: 10-08-2024 End: 10-08-2024 ambulatory Omar Lozano Facility:[facility] Start: 03-03-2024 End: 03-03-[address] Meli Mims Work Phone: [facility] Work Phone: Start: 03-03-2024 End: 03-03-[address] Meli Mims Work Phone: [facility]-Laboratory, Specimen Work Phone: Start: 03-03-2024 End: 03-03-[address] Meli Mims Work Phone: [facility] Work Phone: Start: 02-05-2024 End: 02-05-[address] Meli Mims Work Phone: [facility] Work Phone: Start: 02-05-2024 End: 02-05-[address] Meli Mims Work Phone: [facility]-Laboratory Work Phone: Start: 02-04-2024 End: 02-04-[address] Meli Mims Work Phone: [facility] Work Phone: Start: 01-22-2024 End: 01-22-[address] Meli Mims Work Phone: [facility] Work Phone: Start: 01-22-2024 End: 01-22-[address] Meli Mims Work Phone: [facility] Work Phone: Procedures Date Procedure Procedure Detail Performing Clinician Start: 05-05-[address] Meli Mims MD Work Phone: Start: 03-12-2025 MRI of brain with contrast Dr. Meli Mims MD Work Phone: Start: 01-27-2025 Liquid based cervica l cytology screening Dr. Meli Mims MD Work Phone: Comment on above: EPITHELIAL CELL ABNO RMALITY.ATYPICAL SQUAMOUS CELLS OF UNDETERMINED SIGNIFICANCE (ASC-US). This liquid based Th inPrep(R) pap test was screened withthe use of an image guided system. See below for HPV te sting results. Start: 01-14-2025 CT angiography of he ad and neck Dr. Meli Mims MD Work Phone: Start: 01-14-2025 CT of head without contrast Dr. Meli Mims MD Work Phone: Start: 01-14-[address] Meli Mims MD Work Phone: Start: 01-14-2025 Plain chest X-ray Dr. Javier Mims MD Work Phone: Start: 10-08-2024 Bacteria identificat ion test Dr. Meli Mims MD Work Phone: Start: 10-08-[address] Hernesto Mims MD Work Phone: Plan of Treatment Date Care Activity Detail Author Start: 05-05-2025 [facility] Start: 01-27-2025 Liquid based cervica l cytology screening [facility] Start: 01-14-2025 [facility] Start: 01-14-2025 [facility] Start: 01-22-2024 Liquid based cervica l cytology screening [facility] MR Brain WO and W contrast IV [facility] Path report.final Dx Spec [facility] Path report.final Dx Spec [facility] Patient Education [facility] Work Phone: Patient referral [facility] Work Phone: Immunizations Immunization Date Immunization Notes Care Provider Fa cility 11-04-2024 influenza, injectabl e, madin ren canine kidney, preservative free Dr. Meli Mims MD Work Phone: [facility] 11-04-2024 Influenza, injectabl e, Madin [place] Canine Kidney, preservative free, quadrivalent Dr. Meli Mims MD Work Phone: [facility] 04-22-[address] Meli Mims Work Phone: [facility] 04-20-2014 meningococcal polysaccharide (groups A, C, Y and W-135) diphtheria toxoid conjugate vaccine (MCV4P) Dr. Meli Mims Work Phone: [facility] 04-20-2014 tetanus toxoid, redu whitney diphtheria toxoid, and acellular pertussis vaccine, adsorbed Dr. Meli Mims Work Phone: [facility] Payers Date Payer Category Payer Self-pay [id number] 2024 Unknown [id number] Private Health Insurance [facility] [id number] Unknown MYRNA VALDES *NOT CONTRACTED* [id number] Unknown [id number] Unknown [id number] Unknown [id number] Unknown [id number] Unknown [id number] 462 Unknown [id number] 462 Unknown [id number] 462 Unknown [id number] 462 Unknown [id number] 462 Unknown [id number] 462 Unknown [id number] 462 Social History Date Type Detail Facility Start: 01-22-2024 End: 02-04-2024 Tobacco smoking status GAIS Unknown if ever smoked [facility] Start: 1995 Sex Assigned At Female [facility] Start: 01-14-2025 End: 05-05-2025 Tobacco smoking status NHIS Never smoked tobacco (finding) [facility] Start: 02-05-2025 Sex Female (finding) [facility] Mental Status Date Assessment Result Facility 05-05-2025 Cognitive function Level Of Cons ciousness Awake;Alert;Appropriate;Follow s Commands [facility] Work Phone: 01-14-2025 Cognitive function Voice/Name [facility] Work Phone: Clinical Notes 01-22-2024 to 05-05-2025 Note Date & Type Note Facility 05-05-2025 Discharge summary [facility] 03-19-2025 Hospital Discharge instructions Additional Instructions Return with fever, new or worsening symptoms. Follow-up with your primary care provider. You may need to see a neurologist or headache specialist, and start a maintenance medication again. [facility] Work Phone: 01-27-2025 Evaluation note Diagnosis Onset Date Resolution Left ovarian cyst acute January 172024 9:24am LGSIL (low grade squamous intraepithelial dysplasia) acute January 27, 2025 9:24am Migraine with aura acute January 27, 2025 9:24am Encounter for routine gynecological examination noneactive January 27, 2025 9:24am Depression with anxiety acute [facility] 2024 8:00am Alteration in speech noneactive [facility] 2024 8:00am Numbness and tingling of right hand noneactive February 03, 2025 8:00am Vitamin D deficiency noneactive [facility] 2024 8:00am Obesity (BMI 30-39.9) noneactive [facility] 2024 8:00am [facility] Work Phone: 1(720) 127-149412-17-2024 Evaluation note* Diagnosis Onset Date Resolution Status Admit Date Depression with anxiety acute D ecember 2023 7:54am Immunization due noneactive November 04, 2024 7:54am Vitamin D deficiency noneactive [facility] 2023 7:54am Obesity (BMI 30-39.9) noneactive Dec emb 2023 7:54am Left ovarian cyst acute January 172024 9:24am LGSIL (low grade squamous intraepithelial dysplasia) acute January 27, 2025 9:24am Migraine with aura acute January 27, 2025 9:24am Encounter for routine gynecological examination noneactive January 27, 2025 9:24am Depression with anxiety acute [facility] 2024 8:00am Alteration in speech noneactive [facility] 2024 8:00am Numbness and tingling of rig ht hand noneactive February 03, 2025 8:00am Vitamin D deficiency noneactive [facility] 2024 8:00am Obesity (BMI 30-39.9) noneactive [facility] 2024 8:00am [facility] Work Phone: 1(315) 268-227303-05-2024 NotePap Smear Specimen [facility] 6:09pmComment.Satisfactory for evaluation. Endocervical and/or squamous metaplasticcells (endocervical component)are present.[facility] INTER[facility]ACED A#[id number] HospitalComment on above:Satisfactory for evaluation. Endocervical and/or squamous metaplasticcells (endocervical component)are present.01-22-2024 NotePap Smear Specimen AdequacyMarch 2023 6:09pmComment.Satisfactory for evaluation. Endocervical and/or squamous metaplasticcells (endocervical component)are present.[facility]AC[facility] A#[id number] VA Medical CenterComment on above:Satisfactory for evaluation. Endocervical and/or squamous metaplasticcells (endocervical component)are present.Discharge summary Author Hermelindo Bal [facility] Note Date/Time May 05, 2025 10:0 5am [facility] Medical Records Department [address] [place] [address] Emergency Department Summary 05/05/25 MR#: [id number] Acct: [id number] Name: CAIN SEYMOUR Rep #:[id number] 05 : 1995 30 From: Hermelindo Bal MD PCP: Dr. Meli Mims MD Status:REG ER Location: ED HPI History of Present Illness Chief Complaint: Headache Narrative Narrative: 30-year-old female past medical history of previous migraine headaches presents with headache that began this morning when she woke up. While she has had history of migraines, the last being within the last week, she states she had numbness and tingling of her left arm as well and perhaps some of her tongue. She currently rates her headache as 7 out of 10. It is associated with nausea but no vomiting, no fevers or chills. Last menstrual period 2 weeks ago. She states she is come to the emergency department previously was in for headache but it was for the paresthesias and she received a headache cocktail which proved. Additionally she states that she had an MRI as an outpatient last monthwhich did not show anything acute. This was ordered by her primary care provider. She took Excedrin without relief. [facility] Medical History Depression with anxiety Home Medications ?Medication ?Instructions ?Recorded ?Last Taken ?Type hydroxyzine HCl 25 mg tablet 25 mg PO TID PRN anxiety #90 tabs 08/07/24 Unknown Rx norethindrone (contraceptive) 0.35 0.35 mg PO QDAY #84 tabs 01/27/25 Unknown Rx mg tablet (Cassie) escitalopram oxalate 10 mg tablet 10 mg PO DAILY #90 T ABLETS 03/09/25 Unknown Rx Allergy/AdvReac Type Severity Reaction Status Date / Time No Known Allergies Allergy Verified 05/05/25 07:45 Family History Mother Age: 66 Endometriosis Fatty liver disease, nonalcoholic Sister Age: 41 Endometriosis Bipolar disorder Grandfather Prostate cancer Heart disease Grandmother Heart disease Surgical History History of cholecystectomy (01/03/23) S/P cholecystectomy History of foot surgery S/P ACL surgery History of tonsillectomy Social History adopted: No household members: family current occupational status: employed 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 Positive photophobia. Improved with standing. Mother states patient complained of headache all week, almost every day, but patient denied. EXAM Physical Exam Narrative Exam Narrative: Afebrile. Vital signs noted. Nontoxic-appearing. Cardiovascular examination regular rate and rhythm. Lungs are clear to auscultation bilaterally. Abdomen is soft, nontender, with positive bowel sounds. Neurological examination nonfocal, nonlateralizing. Patellar DTRs equal and symmetric. Neck soft and supple without meningismus. PERRL, EOMI. Const Vital Signs: 05/05/25 07:42 Temperature 98.4 F Temperature Source Oral Pulse Rate 96 Respiratory Rate 16 Blood Pressure 141/89 H Blood Pressure Mean 106 Pulse Ox 98 Oxygen Delivery Method Room Air MDM MDM MDM Narrative Medical decision making narrative: Differential diagnosis includes but not limited to migrainous type headache versus atypical migraine versus stress headache. I have very low suspicion for subarachnoid hemorrhage. I do not feel CT imaging is indicated currently. Thiswas discussed with the patient and her mother and given her recent negative MRI,I have low suspicion for brain mass or tumor. She was given Compazine, Benadryl, and Toradol and serum and baseline laboratories of CBC and BMP were obtained. She was bolused normal saline 1 L intravenously. I reviewed her laboratory work and she has normal white count of 5.4 with hemoglobin 14.8, hematocrit 42.7, platelet count 191. BMP is grossly unremarkable except for glucose 103. Magnesium normal at 1.9, serum negative. Repeat examination at approximately 10 AM does show her improved. She states her headache is now 4 out of 10 down from a 7. At this point in time, I do feelshe can be discharged to follow-up with her primary care provider. She was toldthat she may need to see a neurologist or headache specialist and perhaps start maintenance medications again for migraines. Return instructions to the emergency department were reviewed. Disposition is discharged home in stable condition. History & Record Review Discussion w/independent historian: Patient Additional record(s) reviewed:: Prior ED visit Lab Data Attestation: I reviewed the patient's lab results. Labs: Laboratory Results - last 24 hr 05/05/25 09:00 WBC 5.4 RBC 4.83 Hgb 14.8 Hct 42.7 MCV 88.4 MCH 30.6 MCHC 34.7 RDW Std Deviation 38.4 RDW Coeff of Cesar 11.9 Plt Count 191 MPV 9.6 Immature Gran % (Auto) 0.400 Neut % (Auto) 61.3 Lymph % (Auto) 27.4 [place] % (Auto) 8.7 Eos % (Auto) 1.5 Baso % (Auto) 0.7 Absolute Neuts (auto) 3.3 Absolute Lymphs (auto) 1.49 Nucleated RBC % 0 Sodium 138 Potassium 4.4 Chloride 103 Carbon Dioxide 25.4 Anion Gap 9 BUN 13 Creatinine 0.75 Estim Creat Clear Calc 120.02 Est GFR (MDRD) Non-Af 111 BUN/Creatinine Ratio 17.2 Glucose 103 H Calcium 9.3 Magnesium 1.9 Serum , Qual NEGATIVE Discharge Plan Triage Chief Complaint: Headache ED Provider: Hermelindo Bal Dx/Rx/DC Orders Clinical Impression: Migraine, Paresthesia of left arm Instructions: ED, Migraine (Classical) Prescriptions: No Action hydroxyzine HCl 25 mg tablet 25 mg PO TID PRN (Reason: anxiety) Qty: 90 0RF Rx Instructions: May take 1-2 tablets as needed for anxiety up to TID norethindrone (contraceptive) [Cassie] 0.35 mg tablet 0.35 mg PO QDAY Qty: 84 3RF escitalopram oxalate 10 mg tablet 10 mg PO DAILY Qty: 90 0RF Primary Care Provider: Meli Mims Referrals: Meli Mims MD [Primary Care Provider] - 3-5 Days if not improving Campbell Dutton MD [Non-Staff -Ordering Privileges] - As soon as possible Activity Restrictions/Additional Instructions: Return with fever, new or worsening symptoms. Follow-up with your primary care provider. You may need to see a neurologist or headache specialist, and start amaintenance medication again. Print Language: Luxembourgish Disposition Disposition: Home, Self Care What to do if you have Problems For any increased pain, shortness of breath, bleeding, nausea or vomiting, chestpain, or any unexpected problems, contact your Primary Care Provider. Call [facility] ([phone]) or report to the closest Emergency Room. Call 911 if necessary. 05/05/25 1005 <Electronically signed by Hermelindo Bal MD> Cosigner Signature (if applicable): CC: Dr. Meli Mmis MD ~ Signed [facility] Work Phone: Evaluation note* Diagnosis Onset Date Resolution Status Hair loss acute Hot flashes acute Migraine with aura acute Weight gain acute Encounter for routine gynecological examination noneactive Encounter for IUD removal no neactive [facility] Work Phone: Evaluation note* Diagnosis Onset Date Resolution Status Hair loss acute Hot flashes acute Migraine with aura acute Weight gain acute Encounter for routine gynecological examination noneactive Encounter for IUD removal no neactive Depression with anxiety acut e Hair loss acute Establishing care with new doctor, encounter for noneactive Vitamin D deficiency noneact tonny Obesity (BMI 30-39.9) noneac tive [facility] Work Phone: Evaluation note* Diagnosis Onset Date Resolution Status Hair loss acute Hot flashes acute Migraine with aura acute Weight gain acute Encounter for routine gynecological examination noneactive Encounter for IUD removal no neactive Depression with anxiety acut e Hair loss acute Establishing care with new doctor, encounter for noneactive Vitamin D deficiency noneact tonny Obesity (BMI 30-39.9) noneac tive LGSIL (low grade squamous intraepithelial dysplasia) acute [facility] Work Phone: Reason for referral (narrative)No reason for referral information [facility]: Chief Complaint and Reason for Visit Chief Complaint Annual (DAY GUARD) Reason for Visit Hair loss Hot flashes Migraine with aura Weight gain Encounter for routine gynecological examination Encounter for IUD removal Chief Complaint Annual (DAY GUARD) EST NEW PT - PPW SENT E ORDERS Reason for Visit Hair loss Hot flashes Migraine with aura Weight gain Encounter for routine gynecological examination Encounter for IUD removal Depression with anxiety Hair loss Establishing care with new doctor, encounter for Vitamin D deficiency Obesity (BMI 30-39.9) Chief Complaint Annual (DAY GUARD) EST NEW PT - PPW SENT E [...] 7:54am neuro January 14, 2025 6:13pm Annual (DAY GUARD) January 27, 2025 9:2 4am 3 M [...] (BMI 30-39.9) February 03, 2025 8 :00am Chief Complaint Admit Date neuro January 14, 2025 6:13pm Annual (DAY GUARD) January 27, 2025 9:2 4am 3 M FU February 03, 2025 8:0 0am ALTERED SPEECH March 12, 2025 7:1 0am PADILLA May 05, 2025 7:42 am Reason for Visit Admit Date Left ovarian cyst January 27, 2025 9:2 [...] (BMI 30-39.9) February 03, 2025 8 :00am Chief Complaint Admit Date neuro January 14, 2025 6:13pm Annual (DAY GUARD) January 27, 2025 9:2 4am 3 M FU February 03, 2025 8:0 0am ALTERED SPEECH March 12, 2025 7:1 0am PADILLA May 05, 2025 7:42 am ACUTE [facility] FU May 12, 2025 11:0 2am Family History No Family History Records Found [...] Date/ Time Living Will No November 02, 018 3:22pm Power of Disability Manager No November 02, 2018 3:22pm Advance Directive Response Recorded Date/ Time Living Will No November 02, 2 018 3:22pm Do you have a Healthcare Power of Disability Manager? No November 02, 2018 3:22pm Living Will No January 14, 2 025 10:26pm Do you have a Healthcare Power of Disability Manager? No January 14, 2025 10:26pm Advance Directive Response Recorded Date/ Time Living Will No November 02, 2 018 3:22pm Do you have a Healthcare Power of Disability Manager? No November 02, 2018 3:22pm Living Will No January 14, 025 10:26pm Do you have a Healthcare Power of Disability Manager? No January 14, 2025 10:26pm Do you have a Healthcare Power of Disability Manager? No May 05, 2025 7:50am Summary Purpose Additional Source Comments Care Teams (unrecognized sec tion and content) Team Status: Active Member Role Status Dates Dr. Doni Salinas MD Family Provider Active Dr. Meli Mims MD Primary Care Provider Active Team Status: Inactive Member Role Status Dates Yahaira Cavazos TAB MACHINE OPERATOR, TAB MACHINE OPERATOR-C Attending Provider Active Dr. Meli Mims MD Primary Care Provider, Referri ng Provider Active Team Status: Inactive Member Role Status Dates Dr. Meli Mims MD Primary Care Provider Active Yahaira Cavazos TAB MACHINE OPERATOR, TAB MACHINE OPERATOR-C Attending Provider, Referring Provider Active Team Status: [...] MD Primary Care Provider Active Dr. Keren Alcaraz DO Attending Provider, Refe rring Provider Active [...] 2025 End: January 27, 2025 Yahaira Cavazos TAB MACHINE OPERATOR, TAB MACHINE OPERATOR-C Attending Provider Active Start: January 27, 2025 End: January 27, 2025 Team Status: Inactive Member Role Status Dates Dr. Meli Mims MD Primary Care Provider Active Start: January 27, 2025 End: January 27, 2025 Yahaira Cavazos TAB MACHINE OPERATOR, TAB MACHINE OPERATOR-C Attending Provider Active Start: January 27, 2025 End: January 27, 2025 Yahaira Cavazos TAB MACHINE OPERATOR, TAB MACHINE OPERATOR-C Referring Provider Active Start: January 27, 2025 [...] February 03, 2025 End: February 03, 2025 Team Status: Inactive Member Role Status Dates Dr. Meli Mims MD Primary Care Provider Active Start: March 12, 2025 End: March 12, 2025 Dr. Meli Mims MD Attending Provider Active Start: March 12, 2025 End: March 12, 2025 Dr. Meli Mims MD Referring Provider Active Start: March 12, 2025 End: March 12, 2025 Team Status: Inactive Member Role Status Dates Dr. Meli Mims MD Primary Care Provider Active Start: May 05, 2025 End: May 05, 2025 Hermelindo Bal MD Emergency Provider Active Star t: May 05, 2025 End: May 05, 2025 Team Status: Inactive Member Role Status Dates Dr. Meli Mims MD Primary Care Provider Active Start: May 05, 2025 End: May 05, 2025 Hermelindo Bal MD Attending Provider Active Star t: May 05, 2025 End: May 05, 2025 Hermelindo Bal MD Emergency Provider Active Star t: May 05, 2025 End: May 05, 2025 Team Status: Inactive Member Role Status Dates Dr. Meli Mims MD Primary Care Provider Active Start: May 12, 2025 End: May 12, 2025 Dr. Meli Mims MD Referring Provider Active Start: May 12, 2025 End: May 12, 2025 RICHARD Swift Attending Provider Active Start: May 12, 2025 End: May 12, 2025 Goals (unrecognized section and content) Goals may be documented in a n alternate sectionGoals may be documented in an alternate sectionGoals may be documented in an alternate sectionGoals may be documented in an alternate sectionGoals may be documented in an alternate sectionGoals may be documented in an alternate section INFORMATION SOURCE (unrecogn ized section and content) DATE CREATED AUTHOR 09/15/2025 [facility] FOR RECORDS PERTAINING TO PATIENTS WHO ARE [...] BE BASED ON THE PRIMARY CLINICAL RECORDS. [facility] [employer], [facility]. provides no warranty or guarantee of the accuracy or completeness of information in this document.
== END | disposition home or self-care (01) ==
LOC: MRI 15:33
PROVIDERS: PCP Internal Medicine
DX: M25.562 Pain in left knee (principal); S83.8X2D Sprain of other specified parts of left knee, subsequent encounter
CPT/HCPCS: 73721